=== PATIENT | female | born 1940 | race Caucasian/White ===

== ENCOUNTER 2017-04-21 14:38 | Outpatient (CLI) | payer MEDICARE, BC | END 2017-04-21 14:39 | disposition critical access hospital (66) | LOC: EMS 14:38 | PROVIDERS: ATTEND Surgery | DX: R41.82 Altered mental status, unspecified (principal); R11.2 Nausea with vomiting, unspecified; R19.7 Diarrhea, unspecified; R53.1 Weakness | CPT/HCPCS: A0425; A0427 ==

== ENCOUNTER 2017-04-21 15:13 | Inpatient (IN) | payer MEDICARE, BC ==
--- NOTE | 2017-04-21 15:37 | ED Physician Documentation ---
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 and now is largely bed bound with bed sore recent rx for cipro for UTI which she did not finish per reports she has been febrile altered with NV since ysteday, too weak to get up with assist today, slid out of bed s injury requiring fire dept for lift assist and EMS also noted her to be hypoxic Review of Systems Constitutional: reports: Fever, Fatigue Cardiac: denies: Chest pain / pressure Respiratory: reports: Dyspnea GI: reports: Nausea, Vomiting, Diarrhea : reports: Incontinent Skin: reports: Other (buttock break down) Neurologic: reports: Generalized weakness, Altered mental status Endocrine: denies: Easy bruising / bleeding Immunocompromised: denies: Immunocompromised PD PAST MEDICAL HISTORY - Past Medical History Cardiovascular: Hypertension Neuro: Peripheral neuropathy Endocrine/Autoimmune: Type 2 diabetes GI: None : Frequency HEENT: None Musculoskeletal: Osteoarthritis, Chronic back pain Derm: None - Past Surgical History Ortho: Hip replacement, Knee replacement /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 HEENT: Cataracts, Tonsil/Adenoidectomy - Present Medications Home Medications: Ambulatory Orders Medication Instructions Recorded Confirmed Acetaminophen 500 mg PO DAILY 02/13/16 04/21/17 Amitriptyline HCl 10 mg PO QPM PRN 02/13/16 04/21/17 Atenolol 25 mg PO DAILY 02/13/16 04/21/17 Epinephrine [Epipen 2-Omar] 0.3 mg INJ PRN PRN 02/13/16 04/21/17 Metformin HCl 1,000 mg PO QDBREAKFAST 02/13/16 04/21/17 amLODIPine [Norvasc] 5 mg PO DAILY 02/13/16 04/21/17 metFORMIN [Glucophage] 500 mg QPM 04/21/17 04/21/17 - Allergies Allergies/Adverse Reactions: Allergies Allergy/AdvReac Type Severity Reaction Status Date / Time SO Inhibitors Allergy Unknown Verified 04/21/17 15:53 cyclobenzaprine Allergy Unknown Verified 04/21/17 16:09 [From Flexeril] venom-honey bee Allergy Unknown Verified 04/21/17 15:53 - Social History Smoking Status: Former smoker PD ED PE NORMAL - Vitals Vital signs reviewed: Yes - General General: Alert and oriented X 3 (very groggy and slow to respond but accurate) - HEENT HEENT: Atraumatic - Neck Neck: No bony TTP - Cardiac Cardiac: RRR - Respiratory Respiratory: No respiratory distress, Other (shallow) - Abdomen Abdomen: Soft, Non tender - Derm Derm: Other (diffuse buttcok erythema and gluteal cleft early break down, incontinet of jo ann and urine and is in soaked soiled linens) - Extremities Extremities: Other (jessica symmedema) - Neuro Neuro: Alert and oriented X 3, No motor deficit Results - Vitals Vitals: Vital Signs - 24 hr 04/21/17 04/21/17 04/21/17 15:15 15:30 16:45 Temperature 37.6 C H 37.4 C Heart Rate 102 H 96 90 Respiratory 20 18 20 Rate Blood Pressure 156/60 H 141/50 H 138/88 H O2 Saturation 93 97 94 Oxygen O2 Source Room air - Labs Labs: Microbiology 04/21/17 15:15 Clostridium difficile (PCR) - Final Stool Laboratory Tests 04/21/17 04/21/17 04/21/17 15:15 16:01 16:01 WBC 13.8 H RBC 3.88 L Hgb 11.3 L Hct 34.6 L MCV 89.1 MCH 29.1 MCHC 32.7 RDW 12.8 Plt Count 179 MPV 9.3 Neut # 12.3 H Lymph # 0.7 L [place] # 0.8 Eos # 0.0 Baso # 0.1 Absolute Nucleated RBC 0.00 Nucleated RBC % 0.0 Sodium 136 Potassium 3.4 L Chloride 105 Carbon Dioxide 21 Anion Gap 10.0 BUN 14 Creatinine 1.0 Estimated GFR (MDRD) 54 L Glucose 194 H Glycated Hemoglobin Estim Average Glucose Lactic Acid Calcium 8.1 L Urine Color Urine Clarity Urine pH Ur Specific [place] Urine Protein Urine Glucose (UA) Urine Ketones Urine Occult Blood Urine Nitrite Urine Bilirubin Urine Urobilinogen Ur Leukocyte Esterase Urine RBC Urine WBC Ur Squamous Epith Cells Amorphous Sediment Urine Bacteria Ur Microscopic Review Urine Culture Comments Influenza A (Rapid) Negative Influenza B (Rapid) Negative Influenza Types A,B Ag - 04/21/17 04/21/17 04/21/17 16:01 16:01 16:25 WBC RBC Hgb Hct MCV MCH MCHC RDW Plt Count MPV Neut # Lymph # [place] # Eos # Baso # Absolute Nucleated RBC Nucleated RBC % Sodium Potassium Chloride Carbon Dioxide Anion Gap BUN Creatinine Estimated GFR (MDRD) Glucose Glycated Hemoglobin 7.3 H Estim Average Glucose 163 H Lactic Acid 1.3 Calcium Urine Color YELLOW Urine Clarity SL. CLOUDY Urine pH 6.0 Ur Specific [place] 1.025 Urine Protein 100 H Urine Glucose (UA) NEGATIVE Urine Ketones TRACE Urine Occult Blood MODERATE H Urine Nitrite POSITIVE H Urine Bilirubin NEGATIVE Urine Urobilinogen 0.2 (NORMAL) Ur Leukocyte Esterase MODERATE H Urine RBC 6-10 H Urine WBC >25 H Ur Squamous Epith Cells FEW Squamous Amorphous Sediment Few Urine Bacteria Many H Ur Microscopic Review INDICATED Urine Culture Comments INDICATED Influenza A (Rapid) Influenza B (Rapid) Influenza Types A,B Ag - Rads (name of study) CXR Radiology: See rad report (no acute) PD MEDICAL DECISION MAKING - ED course ED course: UTI with profound weakness and AMS too weak to even get up unassisted - will give IVF and antibiotics and reassess but may have to admit Departure - Departure Disposition: 66 [facility] DC/Xfer Clinical Impression: UTI (urinary tract infection) Qualifiers: Urinary tract infection type: site unspecified Hematuria presence: with hematuria Qualified Code(s): N39.0 - Urinary tract infection, site not specified Altered mental status Qualifiers: Altered mental status type: somnolence Qualified Code(s): R40.0 - Somnolence Bed sore Qualifiers: Pressure ulcer location: buttock Pressure ulcer stage: stage 1 Laterality: unspecified laterality Qualified Code(s): L89.301 - Pressure ulcer of unspecified buttock, stage 1 Incontinence of bowel Qualifiers: Fecal incontinence type: unspecified Qualified Code(s): R15.9 - Full incontinence of feces Incontinent of urine Qualifiers: Urinary Incontinence type: unspecified incontinence Qualified Code(s): R32 - Unspecified urinary incontinence Condition: Good Discharge Date/Time: 04/21/17 18:58
--- NOTE | 2017-04-21 16:09 | XRAY Preliminary Report ---
Exam: XR CHEST 1 VIEW X-RAY IMPRESSION: No acute cardiopulmonary disease seen. [facility] SITE ID: [id number]
--- NOTE | 2017-04-21 16:09 | XRAY Report ---
EXAM: CHEST RADIOGRAPHY EXAM DATE: 04/21/2017 03:58 PM. CLINICAL HISTORY: Fever weak altered mental status hypoxia. COMPARISON: None. TECHNIQUE: 1 view. FINDINGS: Lungs/Pleura: No focal opacities evident. No pleural effusion. No pneumothorax. Mediastinum: Within exam limitations, the cardiomediastinal contour is normal. IMPRESSION: No acute cardiopulmonary disease seen. [facility] Referring Provider Line: [phone] SITE ID: [id number]
[2017-04-21 16:15] LABS: BASOPHILS # (AUTO) 0.1 10^3/uL (0.0-0.1); BASOPHILS % (AUTO) 0.5 %; HGB - HEMOGLOBIN 11.3 g/dL (12.0-16.0); LYMPHOCYTES # (AUTO) 0.7 10^3/uL (1.5-3.5); LYMPHOCYTES % (AUTO) 5.2 %; MEAN CORPUSCULAR HEMOGLOBIN 29.1 pg (27.0-31.0); MEAN CORPUSCULAR HGB CONC 32.7 g/dL (32.0-36.0); MEAN CORPUSCULAR VOLUME 89.1 fL (81.0-99.0); MEAN PLATELET VOLUME 9.3 fL (7.9-10.8); MONOCYTES # (AUTO) 0.8 10^3/uL (0.0-1.0); MONOCYTES % (AUTO) 5.5 %; NEUTROPHILS # (AUTO) 12.3 10^3/uL (1.5-6.6); NEUTROPHILS % (AUTO) 88.8 %; PLT - PLATELET COUNT 179 10^3/uL (130-450); RED BLOOD COUNT 3.88 10^6/uL (4.20-5.40); RED CELL DISTRIBUTION WIDTH 12.8 % (12.0-15.0); WHITE BLOOD COUNT 13.8 x10^3/uL (4.8-10.8)
[2017-04-21 16:21] LABS: CALCIUM 8.1 mg/dL (8.5-10.3)
[2017-04-21 16:30] LABS: BILIRUBIN,URINE NEGATIVE (NEGATIVE); GLUCOSE, URINE (UA) NEGATIVE (NEGATIVE); KETONES,URINE (UA) TRACE mg/dL (NEGATIVE); LEUKOCYTE ESTERASE, URINE MODERATE (NEGATIVE); NITRITE,URINE POSITIVE (NEGATIVE); OCCULT BLOOD,URINE MODERATE (NEGATIVE); PROTEIN,URINE 100 mg/dL (NEGATIVE); UROBILINOGEN,URINE 0.2 (NORMAL) E.U./dL (NORMAL)
[2017-04-21 16:33] LABS: CLARITY,URINE SL. CLOUDY (CLEAR)
[2017-04-21] MEDS ORDERED: cefTRIAXone 1 GM in SODIUM CHLORIDE 0.9% MINIBAG 100 ML IV STA (16:35)
[2017-04-21 16:39] LABS: AMORPHOUS SEDIMENT,UR Few /LPF; BACTERIA,URINE Many /HPF (None Seen); SQUAMOUS EPITHELIAL CELL,UR FEW Squamous (<= Few)
[2017-04-21] MEDS ORDERED: ONDANSETRON 4 MG/2 ML VIAL IVP PRN (18:26)
--- NOTE | 2017-04-21 18:39 | HISTORY & PHYSICAL EXAMINATION ---
Chief Complaint - Chief Complaint Chief Complaint: fever, weakness History of Present Illness - Admitted From Admitted From:: ER - History Obtained From History obtained from: pt and her family - History of Present Illness HPI Comment/Other: A 77-year-old female with a past medical history significant for HTN, DM2, peripheral neuropathy, osteoarthritis, chronic back pain, present ER for evaluation of fever, nausea, vomiting and weakness. Pt report she had fever 102 degree at home on yesterday, and nausea, vomiting, loose stool and sometime diarrhea for two weeks. Pt report she usually can walk but recently she feel very weakness and can not walk more. Pt also report she had a ulcer at her back for at least couple months, and report she has been under nurse's wound care on [facility]. Pt denies chest pain, shortness of breathing, cough, headache, dysuria, hematuria, abdominal pain, GI bleeding, vision changing. Today in ER pt has elevated temperature to 37.6 C. UA reveals positive UTI. pt has elevated WBC to 13.8. Pt is admitted for further evaluation and treatment of UTI, weakness. 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 Pt report she did not have any child. Living arrangement: At home Living Situation: With spouse/s.o. Social History Notes: pt denies cigarette smoking, alcoholic and drug issues. - Substance History Use: Uses substance without health or social issues: NONE Abuse: Recurrent use of substance despite neg consequences: NONE Dependence: Experiences withdrawal or developed tolerances: NONE - POLST Patient has POLST: Yes POLST Status: DNR Meds/Allgy - Home Medications Home Medications: Ambulatory Orders Medication Instructions Recorded Confirmed Acetaminophen 500 mg PO DAILY 02/13/16 04/21/17 Amitriptyline HCl 5 mg PO QPM PRN 02/13/16 04/22/17 Atenolol 25 mg PO DAILY 02/13/16 04/22/17 Metformin HCl 1,000 mg PO QDBREAKFAST 02/13/16 04/21/17 metFORMIN [Glucophage] 1,000 mg PO QDBREAKFAST 04/21/17 04/22/17 Loratadine [Claritin] 10 mg PO DAILY PRN 04/22/17 04/22/17 metFORMIN [Glucophage] 500 mg PO QDDINNER 04/22/17 04/22/17 - Allergies Allergies/Adverse Reactions: Allergies Allergy/AdvReac Type Severity Reaction Status Date / Time SO Inhibitors Allergy Unknown Verified 04/21/17 15:53 cyclobenzaprine Allergy Unknown Verified 04/21/17 16:09 [From Flexeril] venom-honey bee Allergy Unknown Verified 04/21/17 15:53 Review of Systems - Constitutional Constitutional: reports: Fatigue, Fever, Weakness. denies: Chills, Malaise, Diaphoresis, Night sweats - Eyes Eyes: denies: Pain, Irritation, Amaurosis, Blurred vision, Spots in vision, Field loss, Vision loss, Dipolpia - Ears, Nose & Throat Ears, Nose & Throat: denies: Ear pain, Hearing loss, Hearing aids, Tinnitus, Vertigo, Nasal pain, Nasal discharge, Nosebleeds, Nasal congestion, Postnasal drainage, Sore throat, Hoarseness, Mouth lesions, Bleeding gums - Cardiovascular Cariovascular: denies: Irregular heart rate, Palpitations, Chest pain, Edema, Lightheadedness, Syncope, Exertional dyspnea, Decr. exercise tolerance - Respiratory Respiratory: denies: Cough, Sputum production, Wheezing, Snoring, Hemoptysis, Orthopnea, SOB at rest, SOB with exertion - Gastrointestinal Gastrointestinal: reports: Nausea, Vomiting. denies: Abdominal pain, Abdominal distention, Constipation, Change in bowel habits, Rectal bleeding, Black stools , Bloody stools, Rodolfo blood emesis, Coffee grounds emesis, Reflux/heartburn, Poor appetite - Genitourinary Genitourinary: denies: Dysuria, Frequency, Urgency, Hematuria, Incontinence, Flank pain - Musculoskeletal Musculoskeletal: denies: Muscle pain, Back pain, Muscle aches, Stiffness, Limited range of motion, Muscle weakness, Gout - Integumentary Integumentary: denies: Rash, Pruritis, Lesions, Dryness, Acne, Pigment changes - Neurological Neurological: reports: General weakness. denies: Focal weakness, Headache, Dizziness, Numbness, Pre-existing deficit, Abnormal gait, Seizures, Incoordination, Slurred speech - Psychiatric Psychiatric: denies: Depression, Anxiety, Suicidal, Delusions, Hallucinations, Homicidal - Endocrine Endocrine: denies: Polyuria, Polydypsia, Polyphagia, Intolerance to cold - Hematologic/Lymphatic Hematologic/Lymphatic: denies: Anemia, Bruising, Petechiae, Blood clots, Lymphadenopathy, Bleeding tendencies Exam - Vital Signs Reviewed Vital Signs: Yes Vital Signs: Vital Signs x48h Temp Pulse Resp BP Pulse Ox 04/21/17 16:45 37.4 C 90 20 138/88 H 94 04/21/17 15:30 96 18 141/50 H 97 04/21/17 15:15 37.6 C H 102 H 20 156/60 H 93 - Physical Exam General Appearance: positive: No acute distress, Alert. negative: Lethargic Eyes Bilateral: positive: Normal inspection, PERRL, EOMI, No lid inflammation, Conjunctivae nml ENT: positive: ENT inspection nml, Pharynx nml, No signs of dehydration. negative: Purulent nasal drainage, Pharyngeal erythema, Oral lesions Neck: positive: Nml inspection, Thyroid nml, No JVD, Trachea midline. negative : Thyromegaly, Lymphadenopathy (R), Lymphadenopathy (L), Stiff neck, Carotid bruit, Swelling/bruising, Tracheal deviation Respiratory: positive: Chest non-tender, No respiratory distress, Breath sounds nml. negative: Wheezes, Rales, Rhonchi Cardiovascular: positive: Regular rate & rhythm, No murmur, No gallop. negative : Irregularly irregular, Extrasystoles, Tachycardia, Bradycardia, Systolic murmur, Diastolic murmur Peripheral Pulses: positive: 2+ Abdomen: positive: Non-tender, No organomegaly, Nml bowel sounds, No distention. negative: Tenderness, Guarding, Rebound Back: positive: Nml inspection. negative: CVA tenderness (R), CVA tenderness (L ) Skin: positive: Color nml, No rash, Warm, Dry, Decubitus. negative: Cyanosis, Diaphoresis, Pallor, Skin rash Extremities: positive: Non-tender, Full ROM, Nml appearance. negative: Calf tenderness, Joint swelling, Jessie's sign/cords Neurologic/Psychiatric: positive: Oriented x3, Motor nml, Sensation nml, Mood/ affect nml. negative: Sensory loss, Facial droop, Slurred/abnml speech, Depressed mood/affect Conclusion/Plan - Problem List (1) UTI (urinary tract infection) Conclusion/Plan: UA reveals positive UTI IV of Zosyn IVF NS follow up UA culture Qualifiers: Urinary tract infection type: site unspecified Hematuria presence: with hematuria Qualified Code(s): N39.0 - Urinary tract infection, site not specified; R31.9 - Hematuria, unspecified; R31.9 - Hematuria, unspecified (2) SIRS (systemic inflammatory response syndrome) Conclusion/Plan: elevated Tem, and HR, and UTI indicate SIRS IVF NS tele and vital monitor closely antibiotics (3) Bed sore Conclusion/Plan: pt report the bed sore has been for couple of months, and under the wound care. wound consult, will follow up Turn side Q2H dressing change as wound consult instruction continue antibiotics Qualifiers: Pressure ulcer location: buttock Pressure ulcer stage: stage 1 Laterality : unspecified laterality Qualified Code(s): L89.301 - Pressure ulcer of unspecified buttock, stage 1 (4) DM2 (diabetes mellitus, type 2) Conclusion/Plan: will check A1C hold Metformin begin Slide scale, hypoglycemia, ACHS (5) HTN (hypertension) Conclusion/Plan: resume home BP meds add Clonidine as PRN vital monitor (6) Weakness generalized Conclusion/Plan: pt report she has been recently weakness, can not walk consult with PT/OT continue treatment of UTI lab and vital monitor (7) DVT prophylaxis Conclusion/Plan: SCD and Lovenox (8) Do not intubate, cardiopulmonary resuscitation (CPR)-only code status Conclusion/Plan: pt clearly state DNR for her code status - Lab Results Fish Bones: 04/22/17 05:20 04/22/17 05:20 Core Measures - Anticipated LOS I expect patient to be DC'd or transferred within 96 hours.: Yes
[2017-04-21 19:03] LABS: HB2 TOTAL 12.2 g/dL; HEMOGLOBIN A1C 0.68 g/dL; HEMOGLOBIN A1C % 7.3 % (4.6-6.2)
[2017-04-21] MEDS: SODIUM CHLORIDE 0.9% 1,000 ML IV SCH (19:48)
[2017-04-21] MEDS: SODIUM CHLORIDE FLUSH 0.9% 10 ML SYRINGE IVP SCH (19:49)
[2017-04-21] MEDS: PIPERACILLIN/TAZOBACTAM 3.375 GM in SODIUM CHLORIDE 0.9% MINIBAG 100 ML IV SCH (19:53)
[2017-04-21] MEDS: ACETAMINOPHEN 325 MG TABLET PO PRN (21:47)
[2017-04-21] MEDS ORDERED: MIN OIL/DIMETHICON/COCONUT OIL 92 GM TUBE TOP PRN (22:42)
[2017-04-21] MEDS ORDERED: ZINC OXIDE 20% OINT 28.35 GM TUBE TOP PRN (22:42)
[2017-04-21] MEDS: INSULIN ASPART 300 UNIT/3 ML PEN SUBQ SCH (22:50)
[2017-04-22] MEDS: PIPERACILLIN/TAZOBACTAM 3.375 GM in SODIUM CHLORIDE 0.9% MINIBAG 100 ML IV SCH ×4 (01:49→19:00)
[2017-04-22] MEDS: SODIUM CHLORIDE 0.9% 1,000 ML IV SCH ×2 (05:32→14:13)
[2017-04-22] MEDS: SODIUM CHLORIDE FLUSH 0.9% 10 ML SYRINGE IVP SCH ×3 (05:33→22:44)
[2017-04-22 05:40] LABS: BASOPHILS # (AUTO) 0.1 10^3/uL (0.0-0.1); BASOPHILS % (AUTO) 0.8 %; EOSINOPHILS % (AUTO) 0.1 %; HGB - HEMOGLOBIN 11.5 g/dL (12.0-16.0); LYMPHOCYTES % (AUTO) 15.4 %; MEAN CORPUSCULAR HEMOGLOBIN 29.3 pg (27.0-31.0); MEAN CORPUSCULAR HGB CONC 32.6 g/dL (32.0-36.0); MEAN CORPUSCULAR VOLUME 89.9 fL (81.0-99.0); MEAN PLATELET VOLUME 9.3 fL (7.9-10.8); MONOCYTES # (AUTO) 1.3 10^3/uL (0.0-1.0); MONOCYTES % (AUTO) 9.6 %; NEUTROPHILS # (AUTO) 9.7 10^3/uL (1.5-6.6); NEUTROPHILS % (AUTO) 74.1 %; PLT - PLATELET COUNT 156 10^3/uL (130-450); RED BLOOD COUNT 3.91 10^6/uL (4.20-5.40); RED CELL DISTRIBUTION WIDTH 12.7 % (12.0-15.0); WHITE BLOOD COUNT 13.1 x10^3/uL (4.8-10.8)
[2017-04-22 05:49] LABS: ALBUMIN/GLOBULIN RATIO 0.8 (1.0-2.2); BILIRUBIN,TOTAL 0.6 mg/dL (0.2-1.0); CREATININE 1.1 mg/dL (0.4-1.0); MAGNESIUM 1.9 mg/dL (1.7-2.8); TOTAL PROTEIN 6.7 g/dL (6.7-8.2)
[2017-04-22] MEDS: ENOXAPARIN 40 MG/0.4 ML SYRINGE SUBQ SCH (08:04)
[2017-04-22] MEDS: POLYETHYLENE GLYCOL 3350 17 GM PACKET PO SCH (08:04)
[2017-04-22] MEDS: FAMOTIDINE 20 MG TABLET PO SCH (08:04)
[2017-04-22] MEDS: ATENOLOL 25 MG TABLET PO SCH (08:04)
[2017-04-22] MEDS ORDERED: cloNIDine 0.1 MG TABLET PO PRN (08:05)
[2017-04-22] MEDS: INSULIN ASPART 300 UNIT/3 ML PEN SUBQ SCH ×4 (08:05→22:42)
[2017-04-22] MEDS ORDERED: amLODIPine 5 MG TABLET PO SCH (09:00)
[2017-04-22] MEDS: ACETAMINOPHEN 325 MG TABLET PO PRN ×2 (10:58→22:35)
--- NOTE | 2017-04-22 15:48 | PROVIDER PROGRESS NOTE ---
Subjective - Prog Note Date Prog Note Date: 04/22/17 - Subjective Pt reports feeling: Improved Subjective: pt state she feels much better. No fever, chill, cough. No chest pain, No shortness of breath. Pt just now report she had a slow sitting down to the floor when she tried to stand from the edge of the bed. pt report she did not have any injury to this accident, "actually it was not a fall." Current Medications - Current Medications Current Medications: Active Medications Acetaminophen (Tylenol) 650 mg PO Q4HR PRN PRN Reason: Pain 1 to 4 Last Admin: 04/22/17 10:58 Dose: 650 mg Atenolol (Tenormin) 25 mg PO DAILY [facility] Last Admin: 04/22/17 08:04 Dose: 25 mg Clonidine HCl (Catapres) 0.1 mg PO BID PRN PRN Reason: Hypertensive Emergency Enoxaparin Sodium (Lovenox) 40 mg SUBQ DAILY [facility] Last Admin: 04/22/17 08:04 Dose: 40 mg Famotidine (Pepcid) 20 mg PO DAILY [facility] Last Admin: 04/22/17 08:04 Dose: 20 mg Sodium Chloride (Normal Saline 0.9%) 1,000 mls @ 125 mls/hr IV .Q8H [facility] Last Admin: 04/22/17 14:13 Dose: 125 mls/hr Piperacillin Sod/Tazobactam (Sod 3.375 gm/ Sodium Chloride) 100 mls @ 200 mls/ hr IV Q6H [facility] Last Infusion: 04/22/17 14:10 Dose: Infused Insulin Aspart (Novolog) 2 - 10 unit SUBQ 0800,1200,1700,2100 [facility] PRN Reason: Protocol Last Admin: 04/22/17 11:56 Dose: 4 unit Mineral Oil (Cavilon) 1 applic TOP PRN PRN PRN Reason: Skin Care Multi-Ingredient Ointment (Zinc Oxide) 1 applic TOP PRN PRN PRN Reason: Skin Care Ondansetron HCl (Zofran Inj) 4 mg IVP Q6HR PRN PRN Reason: Nausea / Vomiting Polyethylene Glycol (Miralax) 17 gm PO DAILY [facility] Last Admin: 04/22/17 08:04 Dose: Not Given Sodium Chloride (Normal Saline Flush 0.9%) 10 ml IVP PRN PRN PRN Reason: NEEDED PER PROVIDER ORDERS Sodium Chloride (Normal Saline Flush 0.9%) 10 ml IVP Q8HR [facility] Last Admin: 04/22/17 13:57 Dose: Not Given Acetaminophen 500 mg PO DAILY 02/13/16 Amitriptyline HCl 5 mg PO QPM PRN 02/13/16 Atenolol 25 mg PO DAILY 02/13/16 Metformin HCl 1,000 mg PO QDBREAKFAST 02/13/16 metFORMIN [Glucophage] 1,000 mg PO QDBREAKFAST 04/21/17 Loratadine [Claritin] 10 mg PO DAILY PRN 04/22/17 metFORMIN [Glucophage] 500 mg PO QDDINNER 04/22/17 Objective - Vital Signs/Intake & Output Vital Signs: Vital Signs x48h Temp Pulse Pulse Resp BP Pulse Ox 04/22/17 12:12 37.1 C 73 20 129/49 L 92 04/22/17 10:30 76 Intake & Output: Intake & Output 04/19/17 04/20/17 04/21/17 04/22/17 23:59 23:59 23:59 23:59 Intake Total 350 2850 Output Total 200 Balance 350 2650 - Objective General Appearance: positive: No acute distress, Alert. negative: Lethargic Eyes Bilateral: positive: Normal inspection, PERRL, EOMI, No lid inflammation, Conjunctivae nml ENT: positive: ENT inspection nml, Pharynx nml, No signs of dehydration. negative: Purulent nasal drainage, Pharyngeal erythema, Oral lesions, Dry mucous membranes Neck: positive: Nml inspection, Thyroid nml, No JVD, Trachea midline. negative : Thyromegaly, Lymphadenopathy (R), Lymphadenopathy (L), Stiff neck, Carotid bruit, Swelling/bruising, Tracheal deviation Respiratory: positive: Chest non-tender, No respiratory distress, Breath sounds nml. negative: Wheezes, Rales, Rhonchi Cardiovascular: positive: Regular rate & rhythm, No murmur, No gallop. negative : Irregularly irregular, Extrasystoles, Tachycardia, Bradycardia, Systolic murmur, Diastolic murmur Peripheral Pulses: 2+ Radial (R), 2+ Radial (L), 2+ Dorsalis pedis (R), 2+ Dorsalis pedis (L) Abdomen: positive: Non-tender, No organomegaly, Nml bowel sounds, No distention. negative: Tenderness, Guarding, Rebound Back: positive: Nml inspection. negative: CVA tenderness (R), CVA tenderness (L ) Skin: positive: Color nml, No rash, Warm, Dry, Decubitus, Other (per wound nurse report pt had stage 1 pressure ulcer. initiate pressure ulcer protocol). negative: Cyanosis, Diaphoresis, Pallor, Skin rash Extremities: positive: Non-tender, Full ROM, Nml appearance. negative: Calf tenderness, Joint swelling, Jessie's sign/cords Neurologic/Psychiatric: positive: Oriented x3, Motor nml, Sensation nml. negative: Sensory loss, Facial droop, Slurred/abnml speech, Depressed mood/ affect - Lab Results Fish Bones: 04/22/17 05:20 04/22/17 05:20 Other Labs: Lab Results x24hrs 04/22/17 04/22/17 04/22/17 Range/Units 10:55 07:17 05:20 WBC (4.8-10.8) x10^3/uL RBC (4.20-5.40) 10^6/uL Hgb (12.0-16.0) g/dL Hct (37.0-47.0) % MCV (81.0-99.0) fL MCH (27.0-31.0) pg MCHC (32.0-36.0) g/dL RDW (12.0-15.0) % Plt Count (130-450) 10^3/uL MPV (7.9-10.8) fL Neut # (1.5-6.6) 10^3/uL Lymph # (1.5-3.5) 10^3/uL Clarke # (0.0-1.0) 10^3/uL Eos # (0.0-0.7) 10^3/uL Baso # (0.0-0.1) 10^3/uL Absolute Nucleated RBC x10^3/uL Nucleated RBC % /100WBC Sodium 136 (135-145) mmol/L Potassium 3.8 (3.5-5.0) mmol/L Chloride 106 (101-111) mmol/L Carbon Dioxide 21 (21-32) mmol/L Anion Gap 9.0 (6-13) BUN 13 (6-20) mg/dL Creatinine 1.1 H (0.4-1.0) mg/dL Estimated GFR (MDRD) 48 L (>89) Glucose 191 H (70-100) mg/dL POC Whole Bld Glucose 188 H 228 H (70 - 100) mg/dL Calcium 8.0 L (8.5-10.3) mg/dL Magnesium 1.9 (1.7-2.8) mg/dL Total Bilirubin 0.6 (0.2-1.0) mg/dL AST 67 H (10-42) IU/L ALT 34 (10-60) IU/L Alkaline Phosphatase 62 (42-121) IU/L Total Protein 6.7 (6.7-8.2) g/dL Albumin 3.0 L (3.2-5.5) g/dL Globulin 3.7 (2.1-4.2) g/dL Albumin/Globulin Ratio 0.8 L (1.0-2.2) 04/22/17 04/21/17 04/21/17 Range/Units 05:20 21:31 19:35 WBC 13.1 H (4.8-10.8) x10^3/uL RBC 3.91 L (4.20-5.40) 10^6/uL Hgb 11.5 L (12.0-16.0) g/dL Hct 35.2 L (37.0-47.0) % MCV 89.9 (81.0-99.0) fL MCH 29.3 (27.0-31.0) pg MCHC 32.6 (32.0-36.0) g/dL RDW 12.7 (12.0-15.0) % Plt Count 156 (130-450) 10^3/uL MPV 9.3 (7.9-10.8) fL Neut # 9.7 H (1.5-6.6) 10^3/uL Lymph # 2.0 (1.5-3.5) 10^3/uL Clarke # 1.3 H (0.0-1.0) 10^3/uL Eos # 0.0 (0.0-0.7) 10^3/uL Baso # 0.1 (0.0-0.1) 10^3/uL Absolute Nucleated RBC 0.01 x10^3/uL Nucleated RBC % 0.1 /100WBC Sodium (135-145) mmol/L Potassium (3.5-5.0) mmol/L Chloride (101-111) mmol/L Carbon Dioxide (21-32) mmol/L Anion Gap (6-13) BUN (6-20) mg/dL Creatinine (0.4-1.0) mg/dL Estimated GFR (MDRD) (>89) Glucose (70-100) mg/dL POC Whole Bld Glucose 195 H 173 H (70 - 100) mg/dL Calcium (8.5-10.3) mg/dL Magnesium (1.7-2.8) mg/dL Total Bilirubin (0.2-1.0) mg/dL AST (10-42) IU/L ALT (10-60) IU/L Alkaline Phosphatase (42-121) IU/L Total Protein (6.7-8.2) g/dL Albumin (3.2-5.5) g/dL Globulin (2.1-4.2) g/dL Albumin/Globulin Ratio (1.0-2.2) Assessment/Plan - Problem List (1) UTI (urinary tract infection) Impression: Conclusion/Plan: pt report she feel much better continue antibiotics continue IVF follow up UA culture UA reveals positive UTI IV of Zosyn IVF NS follow up UA culture (2) SIRS (systemic inflammatory response syndrome) Conclusion/Plan: temperature is normal HR is down to NWL continue IVF, and antibiotics tele and vital monitor check ESR and CRP elevated Tem, and HR, and UTI indicate SIRS IVF NS tele and vital monitor closely antibiotics (3) Bed sore Conclusion/Plan: wound nurse review pt, state it is stage 1 pressure ulcer treated with barrier cream and pressure relief Q2H return to side pt report the bed sore has been for couple of months, and under the wound care. wound consult, will follow up Turn side Q2H dressing change as wound consult instruction continue antibiotics (4) DM2 (diabetes mellitus, type 2) Conclusion/Plan: increase to moderate insulin dosage in slide scale based pt has mild to moderate elevated glucose will check A1C hold Metformin begin Slide scale, hypoglycemia, ACHS (5) HTN (hypertension) Conclusion/Plan: normal, stable continue vital monitor resume home BP meds add Clonidine as PRN vital monitor (6) Weakness generalized Conclusion/Plan: continue PT/OT treatment pt report she has been recently weakness, can not walk consult with PT/OT continue treatment of UTI lab and vital monitor (7) Obesity consult to pt possibility to loss of weight, and benefit of loss weight, and the risk of rapid loss weight Qualifiers: Urinary tract infection type: site unspecified Hematuria presence: with hematuria Qualified Code(s): N39.0 - Urinary tract infection, site not specified; R31.9 - Hematuria, unspecified; R31.9 - Hematuria, unspecified (3) Bed sore Qualifiers: Pressure ulcer location: buttock Pressure ulcer stage: stage 1 Laterality : unspecified laterality Qualified Code(s): L89.301 - Pressure ulcer of unspecified buttock, stage 1
[2017-04-22] MEDS ORDERED: IPRATROPIUM/ALBUTEROL 3 ML NEB INH SCH (21:35)
--- NOTE | 2017-04-22 22:32 | XRAY Report ---
EXAM: CHEST RADIOGRAPHY EXAM DATE: 04/22/2017 10:13 PM. CLINICAL HISTORY: Hypoxia and shortness of breath. COMPARISON: 04/21/2017. TECHNIQUE: 1 view. FINDINGS: Lungs/Pleura: Increased haziness and interstitial prominence. No focal opacities evident. No pleural effusion. No pneumothorax. Mediastinum: Large heart. Other: No bony abnormalities noted. IMPRESSION: Large heart with increased interstitial prominence concerning for interstitial pulmonary edema. [facility] Referring Provider Line: [phone] SITE ID: [id number]
[2017-04-22] MEDS: IBUPROFEN 600 MG TABLET PO SCH (22:34)
[2017-04-22] MEDS ORDERED: FUROSEMIDE 40 MG/4 ML VIAL IVP SCH (22:48)
[2017-04-22] MEDS: SODIUM CHLORIDE FLUSH 0.9% 10 ML SYRINGE IVP PRN (22:55)
[2017-04-23] MEDS: PIPERACILLIN/TAZOBACTAM 3.375 GM in SODIUM CHLORIDE 0.9% MINIBAG 100 ML IV SCH ×4 (01:42→21:11)
[2017-04-23 06:02] LABS: BASOPHILS % (AUTO) 0.3 %; EOSINOPHILS % (AUTO) 0.2 %; HGB - HEMOGLOBIN 11.1 g/dL (12.0-16.0); LYMPHOCYTES # (AUTO) 1.7 10^3/uL (1.5-3.5); LYMPHOCYTES % (AUTO) 14.5 %; MEAN CORPUSCULAR HEMOGLOBIN 28.9 pg (27.0-31.0); MEAN CORPUSCULAR HGB CONC 32.6 g/dL (32.0-36.0); MEAN CORPUSCULAR VOLUME 88.6 fL (81.0-99.0); MEAN PLATELET VOLUME 9.4 fL (7.9-10.8); MONOCYTES # (AUTO) 0.9 10^3/uL (0.0-1.0); MONOCYTES % (AUTO) 7.7 %; NEUTROPHILS # (AUTO) 9.1 10^3/uL (1.5-6.6); NEUTROPHILS % (AUTO) 77.3 %; PLT - PLATELET COUNT 159 10^3/uL (130-450); RED BLOOD COUNT 3.85 10^6/uL (4.20-5.40); RED CELL DISTRIBUTION WIDTH 13.1 % (12.0-15.0); WHITE BLOOD COUNT 11.7 x10^3/uL (4.8-10.8)
[2017-04-23 06:32] LABS: ALBUMIN 2.7 g/dL (3.2-5.5); ALBUMIN/GLOBULIN RATIO 0.8 (1.0-2.2); BILIRUBIN,TOTAL 0.7 mg/dL (0.2-1.0); CREATININE 1.2 mg/dL (0.4-1.0); CRP - C-REACTIVE PROTEIN 25.6 mg/dL (0-1.0); TOTAL PROTEIN 6.2 g/dL (6.7-8.2)
[2017-04-23] MEDS: IBUPROFEN 600 MG TABLET PO SCH ×3 (06:42→21:11)
[2017-04-23] MEDS: SODIUM CHLORIDE FLUSH 0.9% 10 ML SYRINGE IVP SCH ×3 (06:49→21:12)
[2017-04-23] MEDS ORDERED: POTASSIUM CHLORIDE 20 MEQ TABLET PO ONE (07:36)
[2017-04-23] MEDS: FAMOTIDINE 20 MG TABLET PO SCH (08:35)
[2017-04-23] MEDS: INSULIN ASPART 300 UNIT/3 ML PEN SUBQ SCH ×4 (08:35→21:40)
[2017-04-23] MEDS: ENOXAPARIN 40 MG/0.4 ML SYRINGE SUBQ SCH (08:35)
[2017-04-23] MEDS: POLYETHYLENE GLYCOL 3350 17 GM PACKET PO SCH (08:35)
[2017-04-23] MEDS: ATENOLOL 25 MG TABLET PO SCH (08:35)
--- NOTE | 2017-04-23 13:09 | PROVIDER PROGRESS NOTE ---
Subjective - Prog Note Date Prog Note Date: 04/23/17 - Subjective Pt reports feeling: Improved Subjective: pt report she feel much better for breathing, SO2 96% on room air. Current Medications - Current Medications Current Medications: Active Medications Acetaminophen (Tylenol) 650 mg PO Q4HR PRN PRN Reason: Pain 1 to 4 Last Admin: 04/22/17 22:35 Dose: 650 mg Atenolol (Tenormin) 25 mg PO DAILY [facility] Last Admin: 04/23/17 08:35 Dose: 25 mg Clonidine HCl (Catapres) 0.1 mg PO BID PRN PRN Reason: Hypertensive Emergency Enoxaparin Sodium (Lovenox) 40 mg SUBQ DAILY [facility] Last Admin: 04/23/17 08:35 Dose: 40 mg Famotidine (Pepcid) 20 mg PO DAILY [facility] Last Admin: 04/23/17 08:35 Dose: 20 mg Furosemide (Lasix) 40 mg PO DAILY [facility] Piperacillin Sod/Tazobactam (Sod 3.375 gm/ Sodium Chloride) 100 mls @ 200 mls/ hr IV Q6H [facility] Last Infusion: 04/23/17 09:46 Dose: Infused Ibuprofen (Motrin) 600 mg PO Q8HR [facility] Last Admin: 04/23/17 06:42 Dose: 600 mg Insulin Aspart (Novolog) 2 - 10 unit SUBQ 0800,1200,1700,2100 [facility] PRN Reason: Protocol Last Admin: 04/23/17 12:11 Dose: 4 unit Mineral Oil (Cavilon) 1 applic TOP PRN PRN PRN Reason: Skin Care Multi-Ingredient Ointment (Zinc Oxide) 1 applic TOP PRN PRN PRN Reason: Skin Care Ondansetron HCl (Zofran Inj) 4 mg IVP Q6HR PRN PRN Reason: Nausea / Vomiting Polyethylene Glycol (Miralax) 17 gm PO DAILY [facility] Last Admin: 04/23/17 08:35 Dose: 17 gm Sodium Chloride (Normal Saline Flush 0.9%) 10 ml IVP PRN PRN PRN Reason: NEEDED PER PROVIDER ORDERS Last Admin: 04/22/17 22:55 Dose: 20 ml Sodium Chloride (Normal Saline Flush 0.9%) 10 ml IVP Q8HR [facility] Last Admin: 04/23/17 06:49 Dose: Not Given Acetaminophen 500 mg PO DAILY 02/13/16 Amitriptyline HCl 5 mg PO QPM PRN 02/13/16 Atenolol 25 mg PO DAILY 02/13/16 Metformin HCl 1,000 mg PO QDBREAKFAST 02/13/16 metFORMIN [Glucophage] 1,000 mg PO QDBREAKFAST 04/21/17 Loratadine [Claritin] 10 mg PO DAILY PRN 04/22/17 metFORMIN [Glucophage] 500 mg PO QDDINNER 04/22/17 Objective - Vital Signs/Intake & Output Reviewed Vital Signs: Yes Vital Signs: Vital Signs x48h Temp Pulse Resp BP Pulse Ox 04/23/17 07:25 36.6 C 74 16 148/54 H 98 Intake & Output: Intake & Output 04/20/17 04/21/17 04/22/17 04/23/17 23:59 23:59 23:59 23:59 Intake Total 350 4070.000 300 Output Total 700 1000 Balance 350 3370.000 -700 - Objective General Appearance: positive: No acute distress, Alert. negative: Lethargic Eyes Bilateral: positive: Normal inspection, PERRL, No lid inflammation, Conjunctivae nml ENT: positive: ENT inspection nml, Pharynx nml, No signs of dehydration. negative: Purulent nasal drainage, Pharyngeal erythema, Oral lesions, Dry mucous membranes Neck: positive: Nml inspection, Thyroid nml, No JVD, Trachea midline. negative : Thyromegaly, Lymphadenopathy (R), Lymphadenopathy (L), Stiff neck, Carotid bruit, Swelling/bruising, Tracheal deviation Respiratory: positive: Chest non-tender, No respiratory distress. negative: Wheezes, Rales, Rhonchi Cardiovascular: positive: Regular rate & rhythm, No murmur, No gallop. negative : Irregularly irregular, Extrasystoles, Tachycardia, Bradycardia, Systolic murmur, Diastolic murmur Peripheral Pulses: 2+ Radial (R), 2+ Radial (L), 2+ Dorsalis pedis (R), 2+ Dorsalis pedis (L) Abdomen: positive: Non-tender, No organomegaly, Nml bowel sounds. negative: Tenderness, Guarding, Rebound Back: positive: Nml inspection. negative: CVA tenderness (R), CVA tenderness (L ) Skin: positive: Color nml, No rash, Warm, Dry. negative: Cyanosis, Diaphoresis , Pallor Extremities: positive: Non-tender, Full ROM, Nml appearance. negative: Calf tenderness, Joint swelling, Jessie's sign/cords Neurologic/Psychiatric: positive: Oriented x3, Sensation nml, Mood/affect nml. negative: Sensory loss, Facial droop, Slurred/abnml speech, Depressed mood/ affect - Lab Results Fish Bones: 04/23/17 05:22 04/23/17 05:22 Other Labs: Lab Results x24hrs 04/23/17 04/23/17 04/23/17 Range/Units 11:07 07:23 05:22 WBC (4.8-10.8) x10^3/uL RBC (4.20-5.40) 10^6/uL Hgb (12.0-16.0) g/dL Hct (37.0-47.0) % MCV (81.0-99.0) fL MCH (27.0-31.0) pg MCHC (32.0-36.0) g/dL RDW (12.0-15.0) % Plt Count (130-450) 10^3/uL MPV (7.9-10.8) fL Neut # (1.5-6.6) 10^3/uL Lymph # (1.5-3.5) 10^3/uL [place] # (0.0-1.0) 10^3/uL Eos # (0.0-0.7) 10^3/uL Baso # (0.0-0.1) 10^3/uL Absolute Nucleated RBC x10^3/uL Nucleated RBC % /100WBC ESR 87 H (0-30) mm/Hr Sodium (135-145) mmol/L Potassium (3.5-5.0) mmol/L Chloride (101-111) mmol/L Carbon Dioxide (21-32) mmol/L Anion Gap (6-13) BUN (6-20) mg/dL Creatinine (0.4-1.0) mg/dL Estimated GFR (MDRD) (>89) Glucose (70-100) mg/dL POC Whole Bld Glucose 213 H 187 H (70 - 100) mg/dL Calcium (8.5-10.3) mg/dL Total Bilirubin (0.2-1.0) mg/dL AST (10-42) IU/L ALT (10-60) IU/L Alkaline Phosphatase (42-121) IU/L Troponin I (<0.49) ng/mL C-Reactive Protein (0-1.0) mg/dL B-Natriuretic Peptide (5-100) pg/mL Total Protein (6.7-8.2) g/dL Albumin (3.2-5.5) g/dL Globulin (2.1-4.2) g/dL Albumin/Globulin Ratio (1.0-2.2) 04/23/17 04/23/17 04/23/17 Range/Units 05:22 05:22 04:37 WBC 11.7 H (4.8-10.8) x10^3/uL RBC 3.85 L (4.20-5.40) 10^6/uL Hgb 11.1 L (12.0-16.0) g/dL Hct 34.1 L (37.0-47.0) % MCV 88.6 (81.0-99.0) fL MCH 28.9 (27.0-31.0) pg MCHC 32.6 (32.0-36.0) g/dL RDW 13.1 (12.0-15.0) % Plt Count 159 (130-450) 10^3/uL MPV 9.4 (7.9-10.8) fL Neut # 9.1 H (1.5-6.6) 10^3/uL Lymph # 1.7 (1.5-3.5) 10^3/uL [place] # 0.9 (0.0-1.0) 10^3/uL Eos # 0.0 (0.0-0.7) 10^3/uL Baso # 0.0 (0.0-0.1) 10^3/uL Absolute Nucleated RBC 0.00 x10^3/uL Nucleated RBC % 0.0 /100WBC ESR (0-30) mm/Hr Sodium 140 (135-145) mmol/L Potassium 3.2 L (3.5-5.0) mmol/L Chloride 105 (101-111) mmol/L Carbon Dioxide 23 (21-32) mmol/L Anion Gap 12.0 (6-13) BUN 13 (6-20) mg/dL Creatinine 1.2 H (0.4-1.0) mg/dL Estimated GFR (MDRD) 43 L (>89) Glucose 173 H (70-100) mg/dL POC Whole Bld Glucose 162 H (70 - 100) mg/dL Calcium 8.0 L (8.5-10.3) mg/dL Total Bilirubin 0.7 (0.2-1.0) mg/dL AST 43 H (10-42) IU/L ALT 34 (10-60) IU/L Alkaline Phosphatase 65 (42-121) IU/L Troponin I (<0.49) ng/mL C-Reactive Protein 25.6 H (0-1.0) mg/dL B-Natriuretic Peptide (5-100) pg/mL Total Protein 6.2 L (6.7-8.2) g/dL Albumin 2.7 L (3.2-5.5) g/dL Globulin 3.5 (2.1-4.2) g/dL Albumin/Globulin Ratio 0.8 L (1.0-2.2) 04/22/17 04/22/17 04/22/17 Range/Units 21:45 21:45 20:53 WBC (4.8-10.8) x10^3/uL RBC (4.20-5.40) 10^6/uL Hgb (12.0-16.0) g/dL Hct (37.0-47.0) % MCV (81.0-99.0) fL MCH (27.0-31.0) pg MCHC (32.0-36.0) g/dL RDW (12.0-15.0) % Plt Count (130-450) 10^3/uL MPV (7.9-10.8) fL Neut # (1.5-6.6) 10^3/uL Lymph # (1.5-3.5) 10^3/uL [place] # (0.0-1.0) 10^3/uL Eos # (0.0-0.7) 10^3/uL Baso # (0.0-0.1) 10^3/uL Absolute Nucleated RBC x10^3/uL Nucleated RBC % /100WBC ESR (0-30) mm/Hr Sodium (135-145) mmol/L Potassium (3.5-5.0) mmol/L Chloride (101-111) mmol/L Carbon Dioxide (21-32) mmol/L Anion Gap (6-13) BUN (6-20) mg/dL Creatinine (0.4-1.0) mg/dL Estimated GFR (MDRD) (>89) Glucose (70-100) mg/dL POC Whole Bld Glucose 163 H (70 - 100) mg/dL Calcium (8.5-10.3) mg/dL Total Bilirubin (0.2-1.0) mg/dL AST (10-42) IU/L ALT (10-60) IU/L Alkaline Phosphatase (42-121) IU/L Troponin I 0.04 (<0.49) ng/mL C-Reactive Protein (0-1.0) mg/dL B-Natriuretic Peptide 423 H (5-100) pg/mL Total Protein (6.7-8.2) g/dL Albumin (3.2-5.5) g/dL Globulin (2.1-4.2) g/dL Albumin/Globulin Ratio (1.0-2.2) 04/22/17 Range/Units 16:51 WBC (4.8-10.8) x10^3/uL RBC (4.20-5.40) 10^6/uL Hgb (12.0-16.0) g/dL Hct (37.0-47.0) % MCV (81.0-99.0) fL MCH (27.0-31.0) pg MCHC (32.0-36.0) g/dL RDW (12.0-15.0) % Plt Count (130-450) 10^3/uL MPV (7.9-10.8) fL Neut # (1.5-6.6) 10^3/uL Lymph # (1.5-3.5) 10^3/uL [place] # (0.0-1.0) 10^3/uL Eos # (0.0-0.7) 10^3/uL Baso # (0.0-0.1) 10^3/uL Absolute Nucleated RBC x10^3/uL Nucleated RBC % /100WBC ESR (0-30) mm/Hr Sodium (135-145) mmol/L Potassium (3.5-5.0) mmol/L Chloride (101-111) mmol/L Carbon Dioxide (21-32) mmol/L Anion Gap (6-13) BUN (6-20) mg/dL Creatinine (0.4-1.0) mg/dL Estimated GFR (MDRD) (>89) Glucose (70-100) mg/dL POC Whole Bld Glucose 183 H (70 - 100) mg/dL Calcium (8.5-10.3) mg/dL Total Bilirubin (0.2-1.0) mg/dL AST (10-42) IU/L ALT (10-60) IU/L Alkaline Phosphatase (42-121) IU/L Troponin I (<0.49) ng/mL C-Reactive Protein (0-1.0) mg/dL B-Natriuretic Peptide (5-100) pg/mL Total Protein (6.7-8.2) g/dL Albumin (3.2-5.5) g/dL Globulin (2.1-4.2) g/dL Albumin/Globulin Ratio (1.0-2.2) Assessment/Plan - Problem List (1) UTI (urinary tract infection) Impression: (1) UTI (urinary tract infection) Conclusion/Plan: continue antibiotics WBC decrease, improved follow UA culture UA reveals positive UTI IV of Zosyn IVF NS follow up UA culture (2) SIRS (systemic inflammatory response syndrome) Conclusion/Plan: no fever, chill, WBC is down continue antibiotics stop IVF elevated Tem, and HR, and UTI indicate SIRS IVF NS tele and vital monitor closely antibiotics (3) Bed sore Conclusion/Plan: continue cream and dressing change pt report the bed sore has been for couple of months, and under the wound care. wound consult, will follow up Turn side Q2H dressing change as wound consult instruction continue antibiotics (4) DM2 (diabetes mellitus, type 2) Conclusion/Plan: increase insulin slide scale will check A1C hold Metformin begin Slide scale, hypoglycemia, ACHS (5) HTN (hypertension) Conclusion/Plan: stable resume home BP meds add Clonidine as PRN vital monitor (6) Weakness generalized Conclusion/Plan: improved, continue PT/OT treatment pt report she has been recently weakness, can not walk consult with PT/OT continue treatment of UTI lab and vital monitor (7) Shortness of breath pt has some difficult to breath last night CXR reveals cardiamegaly, and pulmonary edema elevated BNP ECHO reveals mild impaired EF to 45-50% plan: add Lasix stop IVF replacement of potassium daily lab and vital monitor Qualifiers: Urinary tract infection type: site unspecified Hematuria presence: with hematuria Qualified Code(s): N39.0 - Urinary tract infection, site not specified; R31.9 - Hematuria, unspecified; R31.9 - Hematuria, unspecified (3) Bed sore Qualifiers: Pressure ulcer location: buttock Pressure ulcer stage: stage 1 Laterality : unspecified laterality Qualified Code(s): L89.301 - Pressure ulcer of unspecified buttock, stage 1
[2017-04-23] MEDS: FUROSEMIDE 40 MG TABLET PO SCH (13:36)
[2017-04-24] MEDS: PIPERACILLIN/TAZOBACTAM 3.375 GM in SODIUM CHLORIDE 0.9% MINIBAG 100 ML IV SCH (02:12)
[2017-04-24 06:12] LABS: BASOPHILS # (AUTO) 0.1 10^3/uL (0.0-0.1); BASOPHILS % (AUTO) 0.6 %; EOSINOPHILS # (AUTO) 0.2 10^3/uL (0.0-0.7); EOSINOPHILS % (AUTO) 1.4 %; LYMPHOCYTES # (AUTO) 1.9 10^3/uL (1.5-3.5); LYMPHOCYTES % (AUTO) 16.1 %; MEAN CORPUSCULAR HEMOGLOBIN 29.5 pg (27.0-31.0); MEAN CORPUSCULAR HGB CONC 33.2 g/dL (32.0-36.0); MEAN CORPUSCULAR VOLUME 88.8 fL (81.0-99.0); MEAN PLATELET VOLUME 9.6 fL (7.9-10.8); MONOCYTES # (AUTO) 1.2 10^3/uL (0.0-1.0); MONOCYTES % (AUTO) 9.8 %; NEUTROPHILS # (AUTO) 8.6 10^3/uL (1.5-6.6); NEUTROPHILS % (AUTO) 72.1 %; PLT - PLATELET COUNT 173 10^3/uL (130-450); RED BLOOD COUNT 3.74 10^6/uL (4.20-5.40); RED CELL DISTRIBUTION WIDTH 12.9 % (12.0-15.0); WHITE BLOOD COUNT 11.9 x10^3/uL (4.8-10.8)
[2017-04-24 06:27] LABS: ALBUMIN 2.7 g/dL (3.2-5.5); ALBUMIN/GLOBULIN RATIO 0.7 (1.0-2.2); BILIRUBIN,TOTAL 0.9 mg/dL (0.2-1.0); CALCIUM 8.1 mg/dL (8.5-10.3); CREATININE 1.1 mg/dL (0.4-1.0); TOTAL PROTEIN 6.5 g/dL (6.7-8.2)
[2017-04-24] MEDS: IBUPROFEN 600 MG TABLET PO SCH ×2 (06:48→14:40)
[2017-04-24] MEDS: SODIUM CHLORIDE FLUSH 0.9% 10 ML SYRINGE IVP SCH ×2 (06:48→14:41)
[2017-04-24] MEDS: SODIUM CHLORIDE FLUSH 0.9% 10 ML SYRINGE IVP PRN (07:54)
[2017-04-24] MEDS ORDERED: POTASSIUM CHLOR 10 MEQ/100 ML 10 MEQ/100 ML BAG IV SCH ×3 (08:00→10:00)
[2017-04-24] MEDS ORDERED: DOCUSATE SODIUM 250 MG CAPSULE PO SCH (08:00)
[2017-04-24] MEDS ORDERED: POTASSIUM CHLORIDE 20 MEQ TABLET PO SCH (08:00)
[2017-04-24] MEDS ORDERED: SENNA 8.6 MG TABLET PO SCH (08:00)
[2017-04-24] MEDS: POLYETHYLENE GLYCOL 3350 17 GM PACKET PO SCH (08:04)
[2017-04-24] MEDS: INSULIN ASPART 300 UNIT/3 ML PEN SUBQ SCH ×2 (08:04→11:58)
[2017-04-24] MEDS: NITROFURANTOIN MACRO 100 MG CAPSULE PO SCH ×2 (08:18→08:26)
[2017-04-24] MEDS ORDERED: PIPERACILLIN/TAZOBACTAM 3.375 GM in SODIUM CHLORIDE 0.9% MINIBAG 100 ML IV SCH ×4 (09:00)
[2017-04-24] MEDS: FAMOTIDINE 20 MG TABLET PO SCH (09:18)
[2017-04-24] MEDS: ATENOLOL 25 MG TABLET PO SCH (09:18)
[2017-04-24] MEDS: ENOXAPARIN 40 MG/0.4 ML SYRINGE SUBQ SCH (09:18)
[2017-04-24] MEDS: FUROSEMIDE 40 MG TABLET PO SCH (10:05)
[2017-04-24 13:59] VITALS: BP 147/69
--- NOTE | 2017-04-24 14:21 | Discharge Plan ---
Discharge Plan Disposition: Home, Self Care Condition: Stable Prescriptions: Furosemide [Lasix] 20 mg PO DAILY #7 tablet Nitrofurantoin [Macrobid] 100 mg PO BID #14 capsule Potassium Chloride 20 meq PO DAILY #7 packet Diet: Diabetic Activity Restrictions: Activity as Tolerated Shower Restrictions: No Assistance Devices: Walker Weight Bearing: Full Weight Instruction Topics: UTI, Nitrofurantoin tablets or capsules, Heart Failure, Furosemide tablets, Potassium, Wound Dressing Steps Additional Instructions or Follow Up instructions: May follow up PCP at 3-4 days, and follow up tree wrapper in two weeks, have dressing changing as nurse instruction. Follow-Up Care: Home Health - RN, Home Health - PT, Home Health - OT No Smoking: If you smoke, Please STOP! Call for help. Follow-up with: Umm Corbett PA [Primary Care Provider] -
--- NOTE | 2017-04-24 14:29 | DISCHARGE SUMMARY ---
Discharge Summary Discharge Date: 04/24/17 Discharging Provider: MUHAMMAD Primary Care Provider: Umm Weston Condition at Discharge: Stable Discharge Disposition: Home, Self Care Discharge Facility Name: home - DIAGNOSES Admission Diagnoses: (1) UTI (urinary tract infection) (2) SIRS (systemic inflammatory response syndrome) (3) Bed sore (4) DM2 (diabetes mellitus, type 2) (5) HTN (hypertension) (6) Weakness generalized Discharge Diagnoses with Status of Each Condition: (1) UTI (urinary tract infection) no fever, chill, dysuria. But WBC is 11.9. I discussed the result with pt. Pt request to be discharged to home very strongly. I prescribed antibiotics to pt for continue the antibiotics course. Pt is advised, her condition is not stable , it could deteriorate. Pt state she understand. Pt is advised to see PCP in 3- 4 days, and should symptoms return or worsen, call 911 or present ER. Pt state she will and understand (2) SIRS (systemic inflammatory response syndrome) no fever,chill, continue antibiotics to finish the antibiotics course. (3) Bed sore better, follow nurse instruction for dress changing. (4) DM2 (diabetes mellitus, type 2) stable (5) HTN (hypertension) stable (6) Weakness generalized Pt is recommended to SNF, but pt just requests to be discharged to home. Home health PT/OT/RN are arranged to pt. (7) Shortness of breath resolved, 96% SO2 on room air. (8) mild impaired LV function 45-50% EF ECHO report, and I discussed with this result with pt. Pt is advised to PCP in 3-4 days, and follow up Geriatrics Physician. - HPI History of Present Illness: A 77-year-old female with a past medical history significant for HTN, DM2, peripheral neuropathy, osteoarthritis, chronic back pain, present ER for evaluation of fever, nausea, vomiting and weakness. Pt report she had fever 102 degree at home on yesterday, and nausea, vomiting, loose stool and sometime diarrhea for two weeks. Pt report she usually can walk but recently she feel very weakness and can not walk more. Pt also report she had a ulcer at her back for at least couple months, and report she has been under nurse's wound care on [facility]. Pt denies chest pain, shortness of breathing, cough, headache, dysuria, hematuria, abdominal pain, GI bleeding, vision changing. Today in ER pt has elevated temperature to 37.6 C. UA reveals positive UTI. pt has elevated WBC to 13.8. Pt is admitted for further evaluation and treatment of UTI, weakness. - HOSPITAL COURSE Hospital Course: Pt was admitted for UTI and fever. Pt was treated with Rocephin, IVF initiate. Then Pt did not have more fever. Pt developed some shortness of breath. CXR and ECHO study show pt had some edema at her lung, and mildly impaired LV function. Pt begin to have Lasix. Then pt's symptoms significantly improved. No more shortness of breath. On room air with SO2 at 96%. Pt's hypokalemia was replaced with potassium. Pt request very strongly to be discharged on 04/24/17. Pt is advised her condition is unstable, could deteriorate. Pt state she understand and persist she want to be discharged. Pt is prescribed antibiotics to continue for UTI treatment course. Pt is prescribed lower dosage of Lasix 20 mg daily to continue for fluid out, and Potassium pill 20 meq daily to pt. Pt is advised to follow up PCP in 3-4 days, and follow up machine hose cutter. Pt is advised, should symptoms return or worsen, call 911 or present ER. - ALLERGIES Allergies/Adverse Reactions: Allergies Allergy/AdvReac Type Severity Reaction Status Date / Time SO Inhibitors Allergy Unknown Verified 04/21/17 15:53 cyclobenzaprine Allergy Unknown Verified 04/21/17 16:09 [From Flexeril] venom-honey bee Allergy Unknown Verified 04/21/17 15:53 - MEDICATIONS Home Medications: Ambulatory Orders Medication Instructions Recorded Confirmed Acetaminophen 500 mg PO DAILY 02/13/16 04/21/17 Amitriptyline HCl 5 mg PO QPM PRN 02/13/16 04/22/17 Atenolol 25 mg PO DAILY 02/13/16 04/22/17 metFORMIN [Glucophage] 1,000 mg PO QDBREAKFAST 04/21/17 04/22/17 Loratadine [Claritin] 10 mg PO DAILY PRN 04/22/17 04/22/17 metFORMIN [Glucophage] 500 mg PO QDDINNER 04/22/17 04/22/17 Furosemide [Lasix] 20 mg PO DAILY #7 tablet 04/24/17 Nitrofurantoin [Macrobid] 100 mg PO BID #14 capsule 04/24/17 Potassium Chloride 20 meq PO DAILY #7 packet 04/24/17 - PHYSICAL EXAM AT DISCHARGE General Appearance: positive: No acute distress, Alert. negative: Lethargic Eyes Bilateral: positive: Normal inspection, PERRL, No lid inflammation, Conjunctivae nml ENT: positive: ENT inspection nml, Pharynx nml, No signs of dehydration. negative: Purulent nasal drainage, Pharyngeal erythema, Oral lesions Neck: positive: Nml inspection, Thyroid nml, No JVD, Trachea midline. negative : Thyromegaly, Lymphadenopathy (R), Lymphadenopathy (L), Stiff neck, Carotid bruit, Swelling/bruising, Tracheal deviation Respiratory: positive: Chest non-tender, No respiratory distress, Breath sounds nml. negative: Wheezes, Rales, Rhonchi Cardiovascular: positive: Regular rate & rhythm, No murmur, No gallop. negative : Irregularly irregular, Extrasystoles, Tachycardia, Bradycardia, Systolic murmur, Diastolic murmur Peripheral Pulses: positive: 2+ Abdomen: negative: Non-tender, No organomegaly, Nml bowel sounds, No distention , Tenderness, Guarding, Rebound Back: positive: Nml inspection. negative: CVA tenderness (R), CVA tenderness (L ) Skin: positive: Color nml, No rash, Warm, Dry. negative: Cyanosis, Diaphoresis , Pallor, Skin rash Extremities: positive: Non-tender, Full ROM, Nml appearance. negative: Calf tenderness, Joint swelling, Jessie's sign/cords Neurologic/Psychiatric: positive: Oriented x3, Motor nml, Sensation nml, Mood/ affect nml. negative: Sensory loss, Facial droop, Slurred/abnml speech, Depressed mood/affect - LABS Result Diagrams: 04/24/17 05:53 04/24/17 12:25 - FOLLOW UP Follow Up: May follow up PCP in 3-4 days, and machine hose cutter in one to two weeks. - TIME SPENT Time Spent in Discharge (Minutes): 45
== END 2017-04-24 15:15 | disposition home or self-care (01) | DRG 690 ==
LOC: EDUNIT# → ED 15:13 → MS2 18:26
PROVIDERS: ADMIT Nurse Practitioner Gerontology; ATTEND Nurse Practitioner Gerontology
DX: N39.0 Urinary tract infection, site not specified (principal); L89.301 Pressure ulcer of unspecified buttock, stage 1; R32 Unspecified urinary incontinence; I10 Essential (primary) hypertension; E11.42 Type 2 diabetes mellitus with diabetic polyneuropathy; R35.0 Frequency of micturition; I11.9 Hypertensive heart disease without heart failure; M19.90 Unspecified osteoarthritis, unspecified site; G89.29 Other chronic pain; M54.9 Dorsalgia, unspecified; E66.9 Obesity, unspecified; Z68.36 Body mass index [BMI] 36.0-36.9, adult; Z66 Do not resuscitate; Z96.649 Presence of unspecified artificial hip joint; Z96.659 Presence of unspecified artificial knee joint; Z79.84 Long term (current) use of oral hypoglycemic drugs; Z79.899 Other long term (current) drug therapy; Z87.891 Personal history of nicotine dependence
CPT/HCPCS: 36415; 51701; 71045; 80048; 80053; 81001; 81003; 83036; 83605; 83735; 83880; 84132; 84484; 85025; 85651; 86140; 87040; 87086; 87275; 87276; 87493; 93306; 94640; 94664; 96365; 96366; 99284; 99285

== ENCOUNTER 2017-05-04 08:00 | Outpatient (CLI) | payer MEDICARE, BC ==
[2017-05-04 17:06] LABS: BILIRUBIN,URINE NEGATIVE (NEGATIVE); GLUCOSE, URINE (UA) NEGATIVE (NEGATIVE); KETONES,URINE (UA) NEGATIVE (NEGATIVE); LEUKOCYTE ESTERASE, URINE SMALL (NEGATIVE); NITRITE,URINE NEGATIVE (NEGATIVE); OCCULT BLOOD,URINE MODERATE (NEGATIVE); PROTEIN,URINE TRACE mg/dL (NEGATIVE); UROBILINOGEN,URINE 0.2 (NORMAL) E.U./dL (NORMAL)
[2017-05-04 17:54] LABS: CLARITY,URINE TURBID (CLEAR)
[2017-05-04 17:55] LABS: AMORPHOUS SEDIMENT,UR Few /LPF; BACTERIA,URINE Many /HPF (None Seen); SQUAMOUS EPITHELIAL CELL,UR MOD Squamous (<= Few)
== END 2017-05-04 08:01 | disposition home or self-care (01) ==
LOC: LAB.R 08:00
PROVIDERS: ATTEND Family Medicine
DX: N39.0 Urinary tract infection, site not specified (principal)
CPT/HCPCS: 81001; 81003; 87086

== ENCOUNTER 2017-11-22 15:32 | Outpatient (CLI) | payer MEDICARE, BC ==
--- NOTE | 2017-11-23 09:42 | Ultrasound Report ---
Procedure Date: 11/22/2017 Accession Number: [id number] / [id number] Procedure: US - Pelvic Complete CPT Code: FULL RESULT: EXAM: PELVIC ULTRASOUND EXAM DATE: 11/22/2017 04:00 PM. CLINICAL HISTORY: PELVIC PAIN, FAM HX OVARIAN CA. Postmenopausal. History of hysterectomy. COMPARISON: 11/11/2007. TECHNIQUE: Realtime transabdominal pelvic scan performed to identify the uterus and adnexa and as an overview of other pelvic structures, followed by transvaginal scan to provide greater detail of the uterus and adnexa, with static image documentation. FINDINGS: Uterus: Uterus is absent. Right Ovary: Right ovary is not visualized which may be due to ovarian size or position. Left Ovary: Left ovary is not visualized which may be due to ovarian size or position. Free Fluid: None. Other: None. IMPRESSION: 1. Status post hysterectomy. 2. Ovaries are not visualized. No adnexal masses. 3. No pelvic free fluid. [facility]
== END 2017-11-22 15:33 | disposition home or self-care (01) ==
LOC: DI 15:32
PROVIDERS: ATTEND Physician Assistant
DX: R10.2 Pelvic and perineal pain (principal); Z78.0 Asymptomatic menopausal state; Z80.41 Family history of malignant neoplasm of ovary
CPT/HCPCS: 76856

== ENCOUNTER 2017-12-28 13:55 | Outpatient (CLI) | payer MEDICARE, BC ==
--- NOTE | 2017-12-29 09:06 | Mammography Report ---
Reason: SCREENING MAMMO Procedure Date: 12/28/2017 Accession Number: [id number] / [id number] Procedure: JUS - Screening Mammo Dig Bilat CPT Code: FULL RESULT: EXAM: Screening Mammo Dig Bilat DATE: 12/28/2017 2:37 PM CLINICAL HISTORY: 77 year-old nulliparous female with history of right breast cyst removal. TECHNIQUE: Bilateral CC and MLO views were obtained. COMPARISON: 09/19/2012, 11/13/2010, 03/15/2009, 08/18/2007. FINDINGS: The breasts demonstrate diffuse fatty replacement bilaterally. Typically benign coarse calcifications are seen bilaterally. No suspicious masses, clustered microcalcifications, or regions of architectural distortion are identified. IMPRESSION: Benign findings RECOMMENDATION: Routine annual screening unless otherwise clinically indicated. BIRADS CATEGORY 2: Benign findings STANDARD QUALIFYING STATEMENTS: 1. This examination was reviewed without the aid of Computer-Aided Detection (CAD). 2. A negative or benign imaging report should not delay biopsy if clinically suspicious findings are present. Consider surgical consultation if warrented. More than 5% of cancers are not identified by imaging. 3. Dense breasts may obscure an underlying neoplasm.
== END 2017-12-28 13:56 | disposition home or self-care (01) ==
LOC: DI 13:55
PROVIDERS: ATTEND Physician Assistant
DX: Z12.31 Encounter for screening mammogram for malignant neoplasm of breast (principal)
CPT/HCPCS: 77067

== ENCOUNTER 2018-06-28 15:11 | Outpatient (CLI) | payer MEDICARE, BC ==
--- NOTE | 2018-06-28 23:11 | Ultrasound Report ---
Reason: CHRONIC KIDNEY DISEASE,STAGE 3 Procedure Date: 06/28/2018 Accession Number: [id number] / [id number] Procedure: US - Retroperitoneal CPT Code: FULL RESULT: EXAM: RENAL ULTRASOUND EXAM DATE: 06/28/2018 04:05 PM. CLINICAL HISTORY: CHRONIC KIDNEY DISEASE,STAGE 3. COMPARISON: None. TECHNIQUE: Real-time scanning was performed with static images obtained. FINDINGS: Right Kidney: 11.6 x 6 x 5.6 cm. Echogenic renal cortex. No contour deforming mass, stones or hydronephrosis. Left Kidney: 9.5 x 4.7 x 6.1 cm. Echogenic renal cortex. No contour deforming mass, stones or hydronephrosis.Multiple renal cysts with the largest noted in the inferior kidney measuring 2.6 x 2.4 x 2.8 cm. Bladder: Bilateral jets seen. The prevoid bladder volume was 57.7 cc. The postvoid bladder volume was 14.4 cc. Other: Study limited by body habitus and limited mobility of the patient. Patient could not move into the decubitus position. IMPRESSION: 1. Study limited due to body habitus and limited patient mobility. 2. Echogenic renal cortex noted. Findings are nonspecific but can be associated with chronic medical renal disease. 3. 2.8 cm simple left renal cyst. No renal mass, stone or hydronephrosis. 4. Normal bladder. [facility]
== END 2018-06-28 15:12 | disposition home or self-care (01) ==
LOC: DI 15:11
PROVIDERS: ATTEND Physician Assistant
DX: N18.3 Chronic kidney disease, stage 3 (moderate) (principal); N28.1 Cyst of kidney, acquired
CPT/HCPCS: 76770

== ENCOUNTER 2018-07-12 14:00 | Outpatient (CLI) | payer MEDICARE, BC ==
[2018-07-12 17:33] LABS: HGB - HEMOGLOBIN 12.7 g/dL (12.0-16.0); MEAN CORPUSCULAR HEMOGLOBIN 28.7 pg (27.0-31.0); MEAN CORPUSCULAR HGB CONC 31.9 g/dL (32.0-36.0); MEAN CORPUSCULAR VOLUME 90.1 fL (81.0-99.0); MEAN PLATELET VOLUME 10.3 fL (7.9-10.8); RED BLOOD COUNT 4.43 10^6/uL (4.20-5.40); RED CELL DISTRIBUTION WIDTH 13.6 % (12.0-15.0); WHITE BLOOD COUNT 11.9 x10^3/uL (4.8-10.8)
[2018-07-12 17:47] LABS: CREATININE,URINE 100.8 mg/dL; PROTEIN/CREATININE RATIO,URINE 0.3 (<=0.2)
[2018-07-12 17:50] LABS: CREATININE 1.3 mg/dL (0.4-1.0)
== END 2018-07-12 14:01 | disposition home or self-care (01) ==
LOC: LAB.F 14:00
PROVIDERS: ATTEND Internal Medicine Nephrology
DX: N05.9 Unspecified nephritic syndrome with unspecified morphologic changes (principal); D70.9 Neutropenia, unspecified; D63.1 Anemia in chronic kidney disease; R80.9 Proteinuria, unspecified
CPT/HCPCS: 36415; 80048; 82570; 84156; 85027

== ENCOUNTER 2018-08-16 09:55 | Outpatient (CLI) | payer MEDICARE, BC ==
[2018-08-16 17:37] LABS: CREATININE 1.4 mg/dL (0.4-1.0)
== END 2018-08-16 09:56 | disposition home or self-care (01) ==
LOC: LAB.F 09:55
PROVIDERS: ATTEND Internal Medicine Nephrology
DX: N05.9 Unspecified nephritic syndrome with unspecified morphologic changes (principal)
CPT/HCPCS: 36415; 82565

== ENCOUNTER 2019-07-20 08:00 | Outpatient (CLI) | payer MEDICARE, BC ==
[2019-07-20 13:55] LABS: ALBUMIN 3.9 g/dL (3.2-5.5); ALBUMIN/GLOBULIN RATIO 1.2 (1.0-2.2); BILIRUBIN,TOTAL 0.8 mg/dL (0.2-1.0); CALCIUM 8.8 mg/dL (8.5-10.3); CREATININE 1.4 mg/dL (0.4-1.0); TOTAL PROTEIN 7.1 g/dL (6.7-8.2)
[2019-07-20 14:07] LABS: HB2 TOTAL 13.1 g/dL; HEMOGLOBIN A1C 0.74 g/dL; HEMOGLOBIN A1C % 7.3 % (4.6-6.2)
== END 2019-07-20 23:59 | disposition home or self-care (01) ==
LOC: LAB.R 08:00
PROVIDERS: ATTEND Family Medicine
DX: E11.22 Type 2 diabetes mellitus with diabetic chronic kidney disease (principal); N18.9 Chronic kidney disease, unspecified
CPT/HCPCS: 80053; 83036

== ENCOUNTER 2020-03-05 07:00 | Outpatient (CLI) | payer MEDICARE, BC ==
[2020-03-05 17:07] LABS: CREATININE,URINE 122.1 mg/dL; MICROALBUM/CREATININE RATIO,UR 44.2 ug/mg (<30.0); MICROALBUMIN,URINE 5.4 mg/dL (0-300.0)
[2020-03-05 17:54] LABS: ALBUMIN 3.8 g/dL (3.2-5.5); ALBUMIN/GLOBULIN RATIO 1.2 (1.0-2.2); ALKALINE PHOSPHATASE 100 IU/L (42-121); ALT ALANINE AMINOTRANSFERASE 17 IU/L (10-60); AST ASPARTATE AMINOTRANSFERASE 20 IU/L (10-42); BILIRUBIN,TOTAL 0.4 mg/dL (0.2-1.0); BUN - BLOOD UREA NITROGEN 29 mg/dL (6-20); CALCIUM 8.7 mg/dL (8.5-10.3); CARBON DIOXIDE - CO2 24 mmol/L (21-32); CHLORIDE 101 mmol/L (101-111); CHOL/HDL RATIO 3.6 (<4.4); CHOLESTEROL 167 mg/dL; CREATININE 1.5 mg/dL (0.4-1.0); GLUCOSE 159 mg/dL (70-100); HDL CHOLESTEROL 46 mg/dL; LDL CHOLESTEROL,CALCULATED 74 mg/dL; LDL/HDL RATIO 1.6 (<4.4); SODIUM 139 mmol/L (135-145); VLDL CHOLESTEROL 47 mg/dL
[2020-03-05 18:52] LABS: HEMOGLOBIN A1c% 7.5 % (4.27-6.07)
== END 2020-03-05 23:59 | disposition home or self-care (01) ==
LOC: LAB.R 07:00
DX: E11.22 Type 2 diabetes mellitus with diabetic chronic kidney disease (principal)
CPT/HCPCS: 80053; 80061; 82043; 82570; 83036; 83721

== ENCOUNTER 2020-03-19 07:00 | Outpatient (CLI) | payer MEDICARE, BC ==
[2020-03-19 15:31] LABS: ALBUMIN 3.8 g/dL (3.2-5.5); CREATININE 1.3 mg/dL (0.4-1.0); PHOSPHORUS 3.7 mg/dL (2.5-4.6)
== END 2020-03-19 23:59 | disposition home or self-care (01) ==
LOC: LAB.R 07:00
PROVIDERS: ATTEND Family Medicine
DX: N18.30 Chronic kidney disease, stage 3 unspecified (principal)
CPT/HCPCS: 80069

== ENCOUNTER 2021-03-25 11:05 | Outpatient (CLI) | payer MEDICARE, BC ==
[2021-03-25 14:47] LABS: ALBUMIN 3.3 g/dL (3.2-5.5); ALBUMIN/GLOBULIN RATIO 0.9 (1.0-2.2); ALKALINE PHOSPHATASE 93 IU/L (42-121); ALT ALANINE AMINOTRANSFERASE 12 IU/L (10-60); AST ASPARTATE AMINOTRANSFERASE 17 IU/L (10-42); BILIRUBIN,TOTAL 0.7 mg/dL (0.2-1.0); BUN - BLOOD UREA NITROGEN 25 mg/dL (6-20); CALCIUM 8.7 mg/dL (8.5-10.3); CARBON DIOXIDE - CO2 24 mmol/L (21-32); CHLORIDE 104 mmol/L (101-111); CHOL/HDL RATIO 3.7 (<4.4); CHOLESTEROL 157 mg/dL; CREATININE 1.5 mg/dL (0.4-1.0); GFR - MDRD 33 (>89); GLUCOSE 325 mg/dL (70-100); HDL CHOLESTEROL 42 mg/dL; LDL CHOLESTEROL,CALCULATED 78 mg/dL; LDL/HDL RATIO 1.9 (<4.4); POTASSIUM 4.3 mmol/L (3.5-5.0); SODIUM 138 mmol/L (135-145); TOTAL PROTEIN 6.9 g/dL (6.7-8.2); TRIGLYCERIDES 187 mg/dL; VLDL CHOLESTEROL 37 mg/dL
[2021-03-25 14:52] LABS: CREATININE,URINE 94.7 mg/dL; MICROALBUMIN,URINE 30.3 mg/dL (0-300.0)
[2021-03-25 20:53] LABS: ESTIMATED AVERAGE GLUCOSE 189 mg/dL (70-100); HEMOGLOBIN A1c% 8.2 % (4.27-6.07)
== END 2021-03-25 11:06 | disposition home or self-care (01) ==
LOC: LAB.S 11:05
PROVIDERS: ATTEND Registered Nurse
DX: E11.22 Type 2 diabetes mellitus with diabetic chronic kidney disease (principal); N18.9 Chronic kidney disease, unspecified
CPT/HCPCS: 36415; 80053; 80061; 82043; 82570; 83036; 83721

== ENCOUNTER 2021-05-03 18:05 | Outpatient (CLI) | payer MEDICARE, BC | END 2021-05-03 18:06 | disposition EMS.NT | LOC: EMS 18:05 | DX: Z03.89 Encounter for observation for other suspected diseases and conditions ruled out (principal) ==

== ENCOUNTER 2022-02-17 08:00 | Outpatient (CLI) | payer MEDICARE, BC ==
[2022-02-17 12:10] LABS: ALBUMIN 3.4 g/dL (3.2-5.5); ALKALINE PHOSPHATASE 72 IU/L (42-121); ALT ALANINE AMINOTRANSFERASE < 10 IU/L (10-60); AST ASPARTATE AMINOTRANSFERASE 18 IU/L (10-42); BILIRUBIN,DIRECT 0.1 mg/dL (0.1-0.5); BILIRUBIN,TOTAL 0.4 mg/dL (0.2-1.0); BUN - BLOOD UREA NITROGEN 28 mg/dL (6-20); CARBON DIOXIDE - CO2 23 mmol/L (21-32); CHLORIDE 106 mmol/L (101-111); CREATININE 1.7 mg/dL (0.4-1.0); GFR - MDRD 29 (>89); GLUCOSE 174 mg/dL (70-100); SODIUM 139 mmol/L (135-145); TOTAL PROTEIN 6.8 g/dL (6.7-8.2)
[2022-02-17 13:52] LABS: ESTIMATED AVERAGE GLUCOSE 146 mg/dL (70-100); HEMOGLOBIN A1c% 6.7 % (4.27-6.07)
== END 2022-02-17 23:59 | disposition home or self-care (01) ==
LOC: LAB.R 08:00
PROVIDERS: ATTEND Registered Nurse
DX: E11.65 Type 2 diabetes mellitus with hyperglycemia (principal); N18.30 Chronic kidney disease, stage 3 unspecified
CPT/HCPCS: 80048; 80076; 83036

== ENCOUNTER 2022-02-25 15:30 | Outpatient (CLI) | payer MEDICARE, BC ==
[2022-02-26 15:53] LABS: CREATININE,URINE 120.9 mg/dL; MICROALBUM/CREATININE RATIO,UR 186.9 ug/mg (<30.0); MICROALBUMIN,URINE 22.6 mg/dL (0-300.0)
== END 2022-02-25 23:59 | disposition home or self-care (01) ==
LOC: LAB.R 15:30
PROVIDERS: ATTEND Registered Nurse
DX: E11.65 Type 2 diabetes mellitus with hyperglycemia (principal)
CPT/HCPCS: 82043; 82570

== ENCOUNTER 2022-03-04 08:00 | Outpatient (CLI) | payer MEDICARE, BC ==
[2022-03-04 15:44] LABS: ALBUMIN 3.5 g/dL (3.2-5.5); CALCIUM 8.8 mg/dL (8.5-10.3); CREATININE 1.7 mg/dL (0.4-1.0); PHOSPHORUS 3.4 mg/dL (2.5-4.6); POTASSIUM 4.6 mmol/L (3.5-5.0)
== END 2022-03-04 23:59 | disposition home or self-care (01) ==
LOC: LAB.S 08:00
PROVIDERS: ATTEND Registered Nurse
DX: E11.22 Type 2 diabetes mellitus with diabetic chronic kidney disease (principal)
CPT/HCPCS: 36415; 80069

== ENCOUNTER 2022-03-08 17:01 | Outpatient (CLI) | payer MEDICARE, BC | END 2022-03-08 23:59 | disposition critical access hospital (66) | LOC: EMS 17:01 | DX: R09.89 Other specified symptoms and signs involving the circulatory and respiratory systems (principal); R50.9 Fever, unspecified; R05.9 Cough, unspecified; R19.7 Diarrhea, unspecified; R53.1 Weakness | CPT/HCPCS: A0425; A0429 ==

== ENCOUNTER 2022-03-08 17:47 | Inpatient (IN) | payer MEDICARE, BC ==
--- NOTE | 2022-03-08 18:14 | ED Physician Documentation ---
History of Present Illness - Stated complaint Stated Complaint: DIFF BREATHING - Chief complaint Chief Complaint: Resp - History obtained from History obtained from: Patient, Caregiver - Additonal information Additional information: Patient is an 81-year-old female with a past medical history of Diabetes type 2, Osteoarthritis, neuropathy, hypertension, poor mobility who resides at a adult family home and presents with a week or 2 of just generally feeling unwell. Patient has no specific symptoms but feels fatigued, denies cough or congestion, no chest pain or difficulty breathing, no fever chills, no abdominal pain, no nausea vomiting or diarrhea, no dysuria or other urinary symptoms. Her caregiver does state that the patient had a day of soft stools today but only 1, nonbloody. Caregiver states that numerous people in the household are sick with cold and flulike symptoms. 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 HEENT: Cataracts, Tonsil/Adenoidectomy - Present Medications Home Medications: Ambulatory Orders Medication Instructions Recorded Confirmed Acetaminophen 500 mg PO DAILY 02/13/16 04/21/17 Amitriptyline HCl 5 mg PO QPM PRN 02/13/16 04/22/17 atenoloL [Atenolol] 25 mg PO DAILY 02/13/16 04/22/17 metFORMIN [Glucophage] 1,000 mg PO QDBREAKFAST 04/21/17 04/22/17 Loratadine [Claritin] 10 mg PO DAILY PRN 04/22/17 04/22/17 metFORMIN [Glucophage] 500 mg PO QDDINNER 04/22/17 04/22/17 Furosemide [Lasix] 20 mg PO DAILY #7 tablet 04/24/17 Nitrofurantoin [Macrobid] 100 mg PO BID #14 capsule 04/24/17 Potassium Chloride 20 meq PO DAILY #7 packet 04/24/17 - Allergies Allergies/Adverse Reactions: Allergies Allergy/AdvReac Type Severity Reaction Status Date / Time SO Inhibitors Allergy Unknown Verified 04/21/17 15:53 cyclobenzaprine Allergy Unknown Verified 04/21/17 16:09 [From Flexeril] venom-honey bee Allergy Unknown Verified 04/21/17 15:53 - Social History Does the pt smoke?: No Smoking Status: Former smoker Does the pt drink ETOH?: No Does the pt have substance abuse?: No - POLST Patient has POLST: Yes POLST Status: DNR PD ED PE NORMAL - Vitals Vital signs reviewed: Yes - General General: Alert and oriented X 3, No acute distress, Well developed/nourished - HEENT HEENT: Atraumatic, Moist mucous membranes, Pharynx benign - Neck Neck: Supple, no meningeal sign, No adenopathy, No JVD - Cardiac Cardiac: RRR, No murmur, No gallop, No rub, Strong equal pulses - Respiratory Respiratory: No respiratory distress, Clear bilaterally - Abdomen Abdomen: Normal bowel sounds, Soft, Non tender, Non distended, No organomegaly - Back Back: No CVA TTP - Derm Derm: Normal color, Warm and dry, No rash - Extremities Extremities: No deformity, No edema - Neuro Neuro: Alert and oriented X 3 Eye Opening: Spontaneous Motor: Obeys Commands Verbal: Oriented GCS Score: 15 - Psych Psych: Normal mood, Normal affect Results - Vitals Vitals: Vital Signs - 24 hr 03/08/22 03/08/22 03/08/22 17:48 17:52 19:22 Temperature 37.7 C Heart Rate 76 78 66 Respiratory 18 25 H 24 Rate Blood Pressure 173/72 H 173/72 H 155/63 H O2 Saturation 87 L 95 95 If not protocol 2 2 : Oxygen Flow, liters/minute 03/08/22 03/08/22 03/08/22 19:30 20:00 20:30 Temperature 37.1 C Heart Rate 69 75 76 Respiratory 25 H 26 H 26 H Rate Blood Pressure 155/63 H 159/63 H 143/62 H O2 Saturation 91 L 94 93 If not protocol 2 1.5 1.5 : Oxygen Flow, liters/minute 03/08/22 03/08/22 21:30 22:00 Temperature Heart Rate 78 Respiratory 27 H Rate Blood Pressure 147/66 H O2 Saturation 87 L 93 If not protocol 2 : Oxygen Flow, liters/minute Oxygen O2 Source Nasal cannula Oxygen Flow Rate 2 - EKG (time done) No standard instances Rate: Rate (enter#) (76) Rhythm: NSR [place]: Normal Intervals: Normal MD QRS: Normal Ischemia: Non specific changes Compare to prior EKG: Old EKG unavailable Computer interpretation: Agree with computer - Labs Labs: Laboratory Tests 03/08/22 03/08/22 03/08/22 18:06 18:06 18:06 WBC 9.0 RBC 4.65 Hgb 12.3 Hct 41.3 MCV 88.8 MCH 26.5 L MCHC 29.8 L RDW 14.6 Plt Count 219 MPV 9.8 Neut # (Auto) 5.5 Lymph # (Auto) 2.9 [place] # (Auto) 0.5 Eos # (Auto) 0.0 Baso # (Auto) 0.0 Absolute Nucleated RBC 0.00 Nucleated RBC % 0.0 Sodium 140 Potassium 4.9 Chloride 106 Carbon Dioxide 24 Anion Gap 10.0 BUN 32 H Creatinine 1.6 H Estimated GFR (MDRD) 31 L Glucose 106 H Calcium 8.4 L Total Bilirubin 0.5 AST 23 ALT 11 Alkaline Phosphatase 68 Troponin I High Sens 23.1 H* B-Natriuretic Peptide Total Protein 7.1 Albumin 2.8 L Globulin 4.3 H Albumin/Globulin Ratio 0.7 L Lipase 24 Nasal Influenza A H3 PCR Nasal Influenza B PCR Nasal RSV (PCR) Nasal SARS-CoV-2 (PCR) 03/08/22 03/08/22 03/08/22 18:06 18:20 20:17 WBC RBC Hgb Hct MCV MCH MCHC RDW Plt Count MPV Neut # (Auto) Lymph # (Auto) [place] # (Auto) Eos # (Auto) Baso # (Auto) Absolute Nucleated RBC Nucleated RBC % Sodium Potassium Chloride Carbon Dioxide Anion Gap BUN Creatinine Estimated GFR (MDRD) Glucose Calcium Total Bilirubin AST ALT Alkaline Phosphatase Troponin I High Sens 28.2 H* B-Natriuretic Peptide 495 H Total Protein Albumin Globulin Albumin/Globulin Ratio Lipase Nasal Influenza A H3 PCR DETECTED A Nasal Influenza B PCR NOT DETECTED Nasal RSV (PCR) NOT DETECTED Nasal SARS-CoV-2 (PCR) NOT DETECTED PD MEDICAL DECISION MAKING - ED course Complexity details: reviewed old records, reviewed results, re-evaluated patient, considered differential, d/w patient ED course: This is a 81-year-old female with past medical history of hypertension diabetes, osteoarthritis, neuropathy who resides in an adult family home who presented with generally not feeling well her course last 1 to 2 weeks without any specific symptoms. Patient was somewhat hypoxic on arrival 86 to 87% which quickly improved with 2 L nasal cannula. She had a cough but no other focal findings on physical exam. She denied any chest pain. She had no signs of fluid excess. We obtained a cardiac work-up including EKG which showed no acute ischemic changes, troponin was mildly elevated at 23 followed by a 2-hour troponin at 28. Given the patient had no chest pain. Her remaining labs are generally stable, renal function slightly worse than baseline. She was found on viral swabs to have the flu, COVID and RSV negative. Her chest x-ray was negative. We gave the patient a dose of oseltamivir and attempted to titrate her off oxygen and she did okay for a period of time saturating 9092% on room air but subsequently dipped down to 86 to 87% therefore I was not able to send her home. Patient therefore should be admitted for hypoxia secondary to influenza and also mildly elevated troponin without acute chest pain or EKG changes. I discussed the case with [facility] telehealth hospitalist, Dr. reilly who has kindly agreed to admit this patient. Departure - Departure Disposition: ED Place in Observation Clinical Impression: Influenza A, Acute respiratory failure with hypoxia, Elevated troponin
[2022-03-08 18:16] LABS: BASOPHILS % (AUTO) 0.2 %; EOSINOPHILS % (AUTO) 0.4 %; HCT - HEMATOCRIT 41.3 % (37.0-47.0); HGB - HEMOGLOBIN 12.3 g/dL (12.0-16.0); LYMPHOCYTES # (AUTO) 2.9 10^3/uL (1.5-3.5); LYMPHOCYTES % (AUTO) 31.9 %; MEAN CORPUSCULAR HEMOGLOBIN 26.5 pg (27.0-31.0); MEAN CORPUSCULAR HGB CONC 29.8 g/dL (32.0-36.0); MEAN CORPUSCULAR VOLUME 88.8 fL (81.0-99.0); MEAN PLATELET VOLUME 9.8 fL (7.9-10.8); MONOCYTES # (AUTO) 0.5 10^3/uL (0.0-1.0); NEUTROPHILS # (AUTO) 5.5 10^3/uL (1.5-6.6); NEUTROPHILS % (AUTO) 60.9 %; PLT - PLATELET COUNT 219 10^3/uL (130-450); RED BLOOD COUNT 4.65 10^6/uL (4.20-5.40); RED CELL DISTRIBUTION WIDTH 14.6 % (12.0-15.0)
--- NOTE | 2022-03-08 18:30 | XRAY Report ---
PROCEDURE: Chest 1 View X-Ray INDICATIONS: Chest Pain TECHNIQUE: One view of the chest was acquired. COMPARISON: Chest x-ray, 04/22/2017. FINDINGS: Surgical changes and devices: None. Lungs and pleura: No pleural effusions or pneumothorax. Bilateral interstitial prominence appears un changed. No focal consolidation. Mediastinum: Mediastinal contours appear normal. Heart size is normal. Bones and chest wall: No suspicious bony lesions. Overlying soft tissues appear unremarkable. IMPRESSION: 1. No acute cardiopulmonary disease. Reviewed by: Bella Ellison MD on 03/08/2022 6:29 PM [facility] Approved by: Bella Ellison MD on 03/08/2022 6:29 PM [facility] Station ID: [id number]
[2022-03-08 18:34] LABS: ALBUMIN 2.8 g/dL (3.2-5.5); ALBUMIN/GLOBULIN RATIO 0.7 (1.0-2.2); BILIRUBIN,TOTAL 0.5 mg/dL (0.2-1.0); CALCIUM 8.4 mg/dL (8.5-10.3); CREATININE 1.6 mg/dL (0.4-1.0); POTASSIUM 4.9 mmol/L (3.5-5.0); TOTAL PROTEIN 7.1 g/dL (6.7-8.2)
[2022-03-08 19:46] LABS: INFLUENZA A H3- RESP PCR PANEL DETECTED; INFLUENZA B - RESP PCR PANEL NOT DETECTED; RSV- RESP PCR PANEL NOT DETECTED; SARS-CoV-2 -RESP PCR PANEL NOT DETECTED
[2022-03-08] MEDS ORDERED: OSELTAMIVIR 75 MG CAPSULE PO STA (19:54)
[2022-03-09] MEDS ORDERED: AMITRIPTYLINE 10 MG TABLET PO PRN (00:52)
[2022-03-09] MEDS ORDERED: ONDANSETRON 4 MG/2 ML VIAL IVP PRN (00:53)
[2022-03-09] MEDS ORDERED: HYDROcod/ACETAM 5/325 MG TABLET PO PRN (00:53)
[2022-03-09] MEDS ORDERED: PROCHLORPERAZINE 10 MG/2 ML VIAL IVP PRN (00:53)
[2022-03-09] MEDS ORDERED: oxyCODONE 5 MG TABLET PO PRN (00:53)
[2022-03-09] MEDS ORDERED: IBUPROFEN 400 MG TABLET PO PRN (00:53)
[2022-03-09] MEDS ORDERED: SODIUM CHLORIDE FLUSH 0.9% 10 ML SYRINGE IVP PRN (00:53)
[2022-03-09] MEDS ORDERED: guaiFENesin 100 MG/5 ML UDC PO STA ×2 (01:04→03:21)
--- NOTE | 2022-03-09 01:09 | HISTORY & PHYSICAL EXAMINATION ---
Chief Complaint - Chief Complaint Chief Complaint: Sob and cough with weakness History of Present Illness - Admitted From Admitted From:: Home - History Obtained From Records Reviewed: Yes History obtained from: Fang special needs caregiver as well as patient Exam Limitations: difficuty hearing - History of Present Illness HPI Comment/Other: This is a 81-year-old female with past medical history of hypertension diabetes, osteoarthritis, neuropathy who resides in an adult family home who presented with generally not feeling well her course last 1 to 2 weeks without any specific symptoms. Patient was somewhat hypoxic on arrival 86 to 87% which quickly improved with 2 L nasal cannula. She had a cough but no other focal findings on physical exam. She denied any chest pain. She had no signs of fluid excess. ER obtained a cardiac work-up including EKG which showed no acute ischemic, baseline ekg is abnormal, changes, troponin was mildly elevated at 23 followed by a 2-hour troponin at 28. Given the patient had no chest pain. Her remaining labs are generally stable, renal function slightly worse than basel ine. She was found on viral swabs to have the flu +ve , COVID and RSV negative. Her chest x-ray was negative. We gave the patient a dose of oseltamivir and attempted to titrate her off oxygen and she did okay for a period of time saturating 90-92% on room air but subsequently dipped down to 86 to 87% therefore was not able to go home. Patient therefore should be admitted for hypoxia secondary to influenza and also mildly elevated troponin without acute chest pain or EKG changes. 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 - Substance History Use: Uses substance without health or social issues: NONE - POLST Patient has POLST: Yes POLST Status: DNR Meds/Allgy - Home Medications Home Medications: Ambulatory Orders Medication Instructions Recorded Confirmed Acetaminophen 500 mg PO DAILY 02/13/16 04/21/17 Amitriptyline HCl 5 mg PO QPM PRN 02/13/16 04/22/17 atenoloL [Atenolol] 25 mg PO DAILY 02/13/16 04/22/17 metFORMIN [Glucophage] 1,000 mg PO QDBREAKFAST 04/21/17 04/22/17 Loratadine [Claritin] 10 mg PO DAILY PRN 04/22/17 04/22/17 metFORMIN [Glucophage] 500 mg PO QDDINNER 04/22/17 04/22/17 Furosemide [Lasix] 20 mg PO DAILY #7 tablet 04/24/17 Nitrofurantoin [Macrobid] 100 mg PO BID #14 capsule 04/24/17 Potassium Chloride 20 meq PO DAILY #7 packet 04/24/17 - Allergies Allergies/Adverse Reactions: Allergies Allergy/AdvReac Type Severity Reaction Status Date / Time SO Inhibitors Allergy Unknown Verified 04/21/17 15:53 cyclobenzaprine Allergy Unknown Verified 04/21/17 16:09 [From Flexeril] venom-honey bee Allergy Unknown Verified 04/21/17 15:53 Review of Systems - Constitutional Constitutional: reports: Weakness, Poor appetite - Respiratory Respiratory: reports: Cough, Sputum production, SOB at rest, SOB with exertion - Neurological Neurological: reports: General weakness Prior Level of Functionality: Needs assitance from caregiver Exam - Vital Signs Vital Signs: Vital Signs x48h Temp Pulse Resp BP Pulse Ox O2 Flow Rate 03/09/22 00:30 77 22 164/66 H 95 2 03/08/22 23:00 97 17 115/74 99 03/08/22 22:30 77 25 H 164/79 H 94 03/08/22 22:00 78 27 H 147/66 H 93 2 03/08/22 21:30 87 L 03/08/22 20:30 37.1 C 76 26 H 143/62 H 93 1.5 03/08/22 20:00 75 26 H 159/63 H 94 1.5 03/08/22 19:30 69 25 H 155/63 H 91 L 2 03/08/22 19:22 66 24 155/63 H 95 2 03/08/22 17:52 78 25 H 173/72 H 95 2 03/08/22 17:48 37.7 C 76 18 173/72 H 87 L - Physical Exam General Appearance: positive: Mild distress, Moderate distress Respiratory: positive: Rhonchi Cardiovascular: positive: Regular rate & rhythm Extremities: positive: Non-tender, No pedal edema Sepsis Event Note (H) - Evaluation Current Stage of Sepsis: Ruled out Conclusion/Plan - Problem List (1) Acute respiratory failure with hypoxia Conclusion/Plan: Supportive care duonebs, cough syrup IS (2) Elevated troponin Conclusion/Plan: trend and repeat in am no cp , ekg abnormal but no concerning for active ischemia (3) Influenza A Conclusion/Plan: Droplet isolation Tamiflyu dose adjusted as per renal function if creatinine improves increase the dose in am (4) DM2 (diabetes mellitus, type 2) Conclusion/Plan: stable check a1c in am for now no concerns Qualifiers: 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
[2022-03-09 01:18] LABS: BASOPHILS % (AUTO) 0.2 %; EOSINOPHILS % (AUTO) 0.4 %; HCT - HEMATOCRIT 40.3 % (37.0-47.0); HGB - HEMOGLOBIN 12.2 g/dL (12.0-16.0); LYMPHOCYTES # (AUTO) 3.2 10^3/uL (1.5-3.5); LYMPHOCYTES % (AUTO) 35.6 %; MEAN CORPUSCULAR HEMOGLOBIN 26.7 pg (27.0-31.0); MEAN CORPUSCULAR HGB CONC 30.3 g/dL (32.0-36.0); MEAN CORPUSCULAR VOLUME 88.2 fL (81.0-99.0); MEAN PLATELET VOLUME 9.7 fL (7.9-10.8); MONOCYTES # (AUTO) 0.6 10^3/uL (0.0-1.0); MONOCYTES % (AUTO) 6.3 %; NEUTROPHILS # (AUTO) 5.1 10^3/uL (1.5-6.6); NEUTROPHILS % (AUTO) 57.2 %; PLT - PLATELET COUNT 209 10^3/uL (130-450); RED BLOOD COUNT 4.57 10^6/uL (4.20-5.40); RED CELL DISTRIBUTION WIDTH 14.6 % (12.0-15.0)
[2022-03-09] MEDS: SODIUM CHLORIDE FLUSH 0.9% 10 ML SYRINGE IVP SCH ×3 (02:06→19:29)
[2022-03-09] MEDS: SODIUM CHLORIDE 0.9% 1,000 ML IV SCH ×4 (02:06→23:32)
[2022-03-09] MEDS: guaiFENesin 600 MG TABLET PO SCH ×3 (02:45→20:33)
[2022-03-09] MEDS ORDERED: guaiFENesin/CODEINE 5 ML UDC PO STA (03:19)
[2022-03-09] MEDS ORDERED: metFORMIN 500 MG TABLET PO SCH ×2 (08:00→17:00)
[2022-03-09] MEDS: ACETAMINOPHEN 500 MG TABLET PO SCH (09:06)
[2022-03-09] MEDS: OSELTAMIVIR 30 MG CAPSULE PO SCH ×2 (09:06→20:33)
[2022-03-09] MEDS: atenoloL 25 MG TABLET PO SCH (09:07)
[2022-03-09] MEDS: FUROSEMIDE 40 MG TABLET PO SCH (09:07)
[2022-03-09] MEDS: INSULIN LISPRO 300 UNIT/3 ML PEN SUBQ SCH ×3 (11:55→21:17)
[2022-03-09] MEDS: IPRATROPIUM/ALBUTEROL 3 ML NEB INH PRN (14:07)
[2022-03-09] MEDS: NYSTATIN POWDER 15 GM TOP SCH ×2 (14:22→20:33)
[2022-03-09] MEDS: ZINC OXIDE 20% OINT 30 GM TUBE TOP PRN (14:23)
[2022-03-09] MEDS: ACETAMINOPHEN 325 MG TABLET PO PRN (14:50)
[2022-03-10 05:10] LABS: BASOPHILS % (AUTO) 0.2 %; EOSINOPHILS # (AUTO) 0.1 10^3/uL (0.0-0.7); EOSINOPHILS % (AUTO) 1.5 %; HCT - HEMATOCRIT 37.7 % (37.0-47.0); HGB - HEMOGLOBIN 11.4 g/dL (12.0-16.0); LYMPHOCYTES # (AUTO) 2.8 10^3/uL (1.5-3.5); LYMPHOCYTES % (AUTO) 28.9 %; MEAN CORPUSCULAR HEMOGLOBIN 26.7 pg (27.0-31.0); MEAN CORPUSCULAR HGB CONC 30.2 g/dL (32.0-36.0); MEAN CORPUSCULAR VOLUME 88.3 fL (81.0-99.0); MEAN PLATELET VOLUME 10.1 fL (7.9-10.8); MONOCYTES # (AUTO) 0.6 10^3/uL (0.0-1.0); NEUTROPHILS % (AUTO) 62.8 %; PLT - PLATELET COUNT 202 10^3/uL (130-450); RED BLOOD COUNT 4.27 10^6/uL (4.20-5.40); RED CELL DISTRIBUTION WIDTH 14.6 % (12.0-15.0); WHITE BLOOD COUNT 9.5 x10^3/uL (4.8-10.8)
[2022-03-10] MEDS: SODIUM CHLORIDE FLUSH 0.9% 10 ML SYRINGE IVP SCH ×3 (07:58→16:25)
[2022-03-10] MEDS: INSULIN LISPRO 300 UNIT/3 ML PEN SUBQ SCH ×4 (07:59→20:50)
[2022-03-10] MEDS: guaiFENesin 600 MG TABLET PO SCH ×2 (08:57→20:06)
[2022-03-10] MEDS: FUROSEMIDE 40 MG TABLET PO SCH (08:57)
[2022-03-10] MEDS: ACETAMINOPHEN 500 MG TABLET PO SCH (08:57)
[2022-03-10] MEDS: OSELTAMIVIR 30 MG CAPSULE PO SCH ×2 (08:58→20:06)
[2022-03-10] MEDS: NYSTATIN POWDER 15 GM TOP SCH ×2 (08:58→20:06)
[2022-03-10] MEDS: atenoloL 25 MG TABLET PO SCH (08:58)
--- NOTE | 2022-03-10 11:21 | PHARMACY PROGRESS NOTE ---
- Best Possible Medication History Admit Date and Time: 03/10/22 1019 Processed by: Pharmacy Medication History completed: Yes Patient Interview: Completed Secondary Source(s): Insurance records Per insurance records, the patient has a losartan 25 mg daily prescription from earlier this month. However, the patient reports she does not take this. As the person ultimately responsible for medication therapy, providers are able to order a medication from an existing home medication list in [facility] via the "Reconcile Routine" prior to Confirmation of that medication by support worker. Such practice is discouraged except when the physician, in their clinical judgment, deems that a medical need exists for a medication without regard to previous use.
[2022-03-10] MEDS: SODIUM CHLORIDE 0.9% 1,000 ML IV SCH (12:40)
--- NOTE | 2022-03-10 16:03 | PROVIDER PROGRESS NOTE ---
Assessment/Plan - Problem List (1) Acute respiratory failure with hypoxia Assessment/Plan: Cause is likely her Influenza A. 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 Plan: if SBP > 160 mm of hg may consider Hydralazine Will stop iv NS and being given with Lasix (5) Elevated troponin Conclusion/Plan: Ekg was abnormal but no concern for active ischemia with flat troponins (6) Weakness Conclusion/Plan: Today we learned from her caregiver at her bedside, that she is usually bedbound and then a lift is used to put her in a recliner. She no longer walks or stands or pivots. Plan: Will order OOB to chair via lift at least daily. No OT or PT planned therefore (7) Pressure ulcers Conclusion/Plan: RN has documented these in photos. She has a large Stage 1 decubitus ulcer and small R LL pressure ulcer poster0-layteral lower calf, almost at ankle Caregiver told the RN that she has a home health agency do dressing changes but we do not know with what Plan: We will ask our patient financial services manager to reach out to the home health agency and determine how they give care for the pressure ulcer. Will order dressings and turning to get pressure off the area of buttocks - Current Meds Current Meds: Current Medications Generic Name Dose Route Start Last Admin Trade Name Freq PRN Reason Stop Dose Admin Acetaminophen 500 mg 03/09/22 09:00 03/10/22 08:57 Acetaminophen 500 Mg Tablet PO 500 mg DAILY SHAMIR Administration Acetaminophen 650 mg 03/09/22 00:53 03/09/22 14:50 Acetaminophen 325 Mg Tablet PO 650 mg Q4HR PRN Administration Pain 1 to 4, or Fever Albuterol/Ipratropium 3 ml 03/09/22 01:04 03/09/22 14:07 Ipratropium/Albuterol 3 Ml Neb INH 3 ml Q4HR PRN Administration Wheezing Atenolol 25 mg 03/09/22 09:00 03/10/22 08:58 Atenolol 25 Mg Tablet PO 25 mg DAILY SHAMIR Administration Furosemide 20 mg 03/09/22 09:00 03/10/22 08:57 Furosemide 40 Mg Tablet PO 20 mg DAILY SHAMIR Administration Guaifenesin 1,200 mg 03/09/22 02:00 03/10/22 08:57 Guaifenesin 600 Mg Tablet PO 1,200 mg BID SHAMIR Administration Sodium Chloride 1,000 mls @ 75 mls/hr 03/09/22 01:00 03/10/22 12:40 Normal Saline 0.9% IV 75 mls/hr .[id number] SHAMIR Administration Insulin Human Lispro 1 - 9 unit 03/09/22 12:00 03/10/22 11:56 Insulin Lispro 300 Unit/3 Ml Pen SUBQ Not Given 0800,1200,1700,2100 [facility] Protocol Multi-Ingredient Ointment 1 applic 03/09/22 10:44 03/09/22 14:23 Zinc Oxide 20% Oint 30 Gm Tube TOP 1 applic PRN PRN Administration Skin Care Nystatin 1 applic 03/09/22 12:00 03/10/22 08:58 Nystatin Powder 15 Gm TOP 1 applic BID SHAMIR Administration Oseltamivir Phosphate 30 mg 03/09/22 09:00 03/10/22 08:58 Oseltamivir 30 Mg Capsule PO 30 mg BID SHAMIR Administration Sodium Chloride 10 ml 03/09/22 01:00 03/10/22 08:58 Sodium Chloride Flush 0.9% 10 Ml Syringe IVP Not Given 0100,0900,1700 [facility] - Lab Result Fish Bone Diagrams: 03/10/22 04:35 03/08/22 18:06 - Additional Planning My Orders: My Active Orders 03/10/22 10:23 Miscellaenous Nursing Order [RC] QSHIFT 03/10/22 Dinner Regular Diet [DIET] 03/10/22 17:00 Multivitamin W/Minerals [Theragran M] 1 tab PO DAILYWM Subjective - Subjective Patient Reports: Feeling Better (Reports still having a cough, cannot expectorate sputum and feels tired. Asks why she has to be here.) Objective Vital Signs: Vital Signs - 24 hr 03/09/22 03/09/22 03/09/22 16:10 20:00 20:19 Temperature 36.7 C 37.0 C Heart Rate [ 58 L 59 L Brachial] Respiratory 20 20 Rate Blood Pressure 121/40 L 124/46 L [Right Brachial artery] O2 Saturation 95 96 If not protocol 2 2 2 : Oxygen Flow, liters/minute 03/10/22 03/10/22 03/10/22 00:33 05:00 07:37 Temperature 36.9 C 37.0 C 37.2 C Heart Rate [ 61 62 63 Brachial] Respiratory 18 18 18 Rate Blood Pressure 142/46 H 145/49 H 144/47 H [Right Brachial artery] O2 Saturation 96 93 93 If not protocol 2 2 2 : Oxygen Flow, liters/minute 03/10/22 03/10/22 09:07 11:28 Temperature 36.7 C Heart Rate [ 63 Brachial] Respiratory 18 Rate Blood Pressure 145/47 H [Right Brachial artery] O2 Saturation 93 92 If not protocol 1 1 : Oxygen Flow, liters/minute Oxygen O2 Source Nasal cannula Oxygen Flow Rate 2 I&O (Last 24 Hrs): Intake and Output Totals x24h 03/08/22 03/09/22 03/10/22 23:59 23:59 23:59 Intake Total 1936 1937 Output Total 700 2200 Balance 1236 -263 General: Alert, Other (Appears tired, has a wet non-productive cough) HEENT: Mucous membr. moist/pink, Other (wearing O2 via n.c.) Neuro: Alert, Non Focal Cardiovascular: No murmurs Respiratory: Rhonchi (R base) Abdomen: Normal bowel sounds, Soft Extremities: Other (Trace edema, small Grade 1 ulcer/wound R lower lateral calf) Front/Back of Body, Lg (Color): 1 - Stage 1 decubitus ulcer - Results Results: Laboratory Results WBC 9.5 x10^3/uL (4.8-10.8) 03/10/22 04:35 RBC 4.27 10^6/uL (4.20-5.40) 03/10/22 04:35 Hgb 11.4 g/dL (12.0-16.0) L 03/10/22 04:35 Hct 37.7 % (37.0-47.0) 03/10/22 04:35 MCV 88.3 fL (81.0-99.0) 03/10/22 04:35 MCH 26.7 pg (27.0-31.0) L 03/10/22 04:35 MCHC 30.2 g/dL (32.0-36.0) L 03/10/22 04:35 RDW 14.6 % (12.0-15.0) 03/10/22 04:35 Plt Count 202 10^3/uL (130-450) 03/10/22 04:35 MPV 10.1 fL (7.9-10.8) 03/10/22 04:35 Neut # (Auto) 6.0 10^3/uL (1.5-6.6) 03/10/22 04:35 Lymph # (Auto) 2.8 10^3/uL (1.5-3.5) 03/10/22 04:35 [place] # (Auto) 0.6 10^3/uL (0.0-1.0) 03/10/22 04:35 Eos # (Auto) 0.1 10^3/uL (0.0-0.7) 03/10/22 04:35 Baso # (Auto) 0.0 10^3/uL (0.0-0.1) 03/10/22 04:35 Absolute Nucleated RBC 0.00 x10^3/uL 03/10/22 04:35 Nucleated RBC % 0.0 /100WBC 03/10/22 04:35 Sodium 140 mmol/L (135-145) 03/08/22 18:06 Potassium 4.9 mmol/L (3.5-5.0) 03/08/22 18:06 Chloride 106 mmol/L (101-111) 03/08/22 18:06 Carbon Dioxide 24 mmol/L (21-32) 03/08/22 18:06 Anion Gap 10.0 (6-13) 03/08/22 18:06 BUN 32 mg/dL (6-20) H 03/08/22 18:06 Creatinine 1.6 mg/dL (0.4-1.0) H 03/08/22 18:06 Estimated GFR (MDRD) 31 (>89) L 03/08/22 18:06 Glucose 106 mg/dL (70-100) H 03/08/22 18:06 Calcium 8.4 mg/dL (8.5-10.3) L 03/08/22 18:06 Total Bilirubin 0.5 mg/dL (0.2-1.0) 03/08/22 18:06 AST 23 IU/L (10-42) 03/08/22 18:06 ALT 11 IU/L (10-60) 03/08/22 18:06 Alkaline Phosphatase 68 IU/L (42-121) 03/08/22 18:06 Troponin I High Sens 37.8 ng/L (2.3-14.8) H* 03/09/22 01:11 B-Natriuretic Peptide 495 pg/mL (5-100) H 03/08/22 18:06 Total Protein 7.1 g/dL (6.7-8.2) 03/08/22 18:06 Albumin 2.8 g/dL (3.2-5.5) L 03/08/22 18:06 Globulin 4.3 g/dL (2.1-4.2) H 03/08/22 18:06 Albumin/Globulin Ratio 0.7 (1.0-2.2) L 03/08/22 18:06 Lipase 24 U/L (22-51) 03/08/22 18:06 Nasal Influenza A H3 PCR DETECTED A 03/08/22 18:20 Nasal Influenza B PCR NOT DETECTED 03/08/22 18:20 Nasal RSV (PCR) NOT DETECTED 03/08/22 18:20 Nasal SARS-CoV-2 (PCR) NOT DETECTED 03/08/22 18:20 Sepsis Event Note (H) - Evaluation Current Stage of Sepsis: Ruled out
[2022-03-10] MEDS: MULTIVITAMIN W/MINERALS TABLET PO SCH (16:25)
[2022-03-10] MEDS: IPRATROPIUM/ALBUTEROL 3 ML NEB INH PRN (20:45)
[2022-03-11] MEDS: ACETAMINOPHEN 325 MG TABLET PO PRN (00:14)
[2022-03-11] MEDS: SODIUM CHLORIDE FLUSH 0.9% 10 ML SYRINGE IVP SCH ×3 (03:05→17:13)
[2022-03-11 05:43] LABS: BASOPHILS % (AUTO) 0.3 %; EOSINOPHILS # (AUTO) 0.2 10^3/uL (0.0-0.7); EOSINOPHILS % (AUTO) 1.6 %; HCT - HEMATOCRIT 37.1 % (37.0-47.0); HGB - HEMOGLOBIN 11.1 g/dL (12.0-16.0); LYMPHOCYTES # (AUTO) 2.6 10^3/uL (1.5-3.5); LYMPHOCYTES % (AUTO) 27.9 %; MEAN CORPUSCULAR HEMOGLOBIN 26.4 pg (27.0-31.0); MEAN CORPUSCULAR HGB CONC 29.9 g/dL (32.0-36.0); MEAN CORPUSCULAR VOLUME 88.1 fL (81.0-99.0); MEAN PLATELET VOLUME 9.8 fL (7.9-10.8); MONOCYTES # (AUTO) 0.7 10^3/uL (0.0-1.0); MONOCYTES % (AUTO) 7.8 %; NEUTROPHILS # (AUTO) 5.8 10^3/uL (1.5-6.6); NEUTROPHILS % (AUTO) 61.8 %; PLT - PLATELET COUNT 205 10^3/uL (130-450); RED BLOOD COUNT 4.21 10^6/uL (4.20-5.40); RED CELL DISTRIBUTION WIDTH 14.4 % (12.0-15.0); WHITE BLOOD COUNT 9.4 x10^3/uL (4.8-10.8)
[2022-03-11 05:51] LABS: CALCIUM 8.2 mg/dL (8.5-10.3); CREATININE 1.4 mg/dL (0.4-1.0); MAGNESIUM 1.6 mg/dL (1.7-2.8); POTASSIUM 3.7 mmol/L (3.5-5.0)
[2022-03-11] MEDS: INSULIN LISPRO 300 UNIT/3 ML PEN SUBQ SCH ×4 (08:13→20:55)
[2022-03-11] MEDS: atenoloL 25 MG TABLET PO SCH (08:14)
[2022-03-11] MEDS: guaiFENesin 600 MG TABLET PO SCH ×2 (08:14→21:57)
[2022-03-11] MEDS: MULTIVITAMIN W/MINERALS TABLET PO SCH (08:14)
[2022-03-11] MEDS: ACETAMINOPHEN 500 MG TABLET PO SCH (08:14)
[2022-03-11] MEDS: OSELTAMIVIR 30 MG CAPSULE PO SCH ×2 (08:14→21:57)
[2022-03-11] MEDS: NYSTATIN POWDER 15 GM TOP SCH ×2 (08:15→21:57)
[2022-03-11] MEDS: CHOLECALCIFEROL 25 MCG TABLET PO SCH (11:39)
[2022-03-11] MEDS: BENZONATATE 100 MG CAPSULE PO SCH ×2 (16:28→21:57)
--- NOTE | 2022-03-11 18:04 | PROVIDER PROGRESS NOTE ---
Assessment/Plan - Problem List (1) Acute respiratory failure with hypoxia Assessment/Plan: Cause is likely her Influenza A. 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 Plan: If SBP > 160 mm of hg may consider Hydralazine We stopped iv NS and restarted Lasix (5) Elevated troponin Conclusion/Plan: Ekg was abnormal but no concern for active ischemia with flat troponins (6) Weakness Conclusion/Plan: We learned from her caregiver at her bedside, that she is usually bedbound and then a lift is used to put her in a recliner. She no longer walks or stands or pivots. The caregiver at bedside today, was not happy with how our staff was using the lift for her Plan: Will order OOB to chair via lift at least daily and prn for more frequent lifting. No OT or PT planned (7) Pressure ulcers Conclusion/Plan: RN has documented these in photos. She has a large Stage 1 decubitus ulcer and small R LL pressure ulcer yarn skeins examiner-lateral lower calf, almost at ankle We learned from a FAX, how [facility] was doing dressing changes. I ordered the same to be done here Plan: From info from [facility] doing dressing changes. I ordered the same to be done here We also ordered turning and repositioning to get pressure off the area of buttocks - Current Meds Current Meds: Current Medications Generic Name Dose Route Start Last Admin Trade Name Freq PRN Reason Stop Dose Admin Acetaminophen 500 mg 03/09/22 09:00 03/11/22 08:14 Acetaminophen 500 Mg Tablet PO 500 mg DAILY SHAMIR Administration Acetaminophen 650 mg 03/09/22 00:53 03/11/22 00:14 Acetaminophen 325 Mg Tablet PO 650 mg Q4HR PRN Administration Pain 1 to 4, or Fever Albuterol/Ipratropium 3 ml 03/09/22 01:04 03/10/22 20:45 Ipratropium/Albuterol 3 Ml Neb INH 3 ml Q4HR PRN Administration Wheezing Atenolol 25 mg 03/09/22 09:00 03/11/22 08:14 Atenolol 25 Mg Tablet PO 25 mg DAILY SHAMIR Administration Benzonatate 100 mg 03/11/22 16:05 03/11/22 16:28 Benzonatate 100 Mg Capsule PO 100 mg TID SHAMIR Administration Cholecalciferol 50 mcg 03/11/22 09:00 03/11/22 11:39 Cholecalciferol 25 Mcg Tablet PO 50 mcg DAILY SHAMIR Administration Guaifenesin 1,200 mg 03/09/22 02:00 03/11/22 08:14 Guaifenesin 600 Mg Tablet PO 1,200 mg BID SHAMIR Administration Insulin Human Lispro 1 - 9 unit 03/09/22 12:00 03/11/22 17:09 Insulin Lispro 300 Unit/3 Ml Pen SUBQ Not Given 0800,1200,1700,2100 [facility] Protocol Multi-Ingredient Ointment 1 applic 03/09/22 10:44 03/09/22 14:23 Zinc Oxide 20% Oint 30 Gm Tube TOP 1 applic PRN PRN Administration Skin Care Multivitamins/Minerals 1 tab 03/10/22 17:00 03/11/22 08:14 Multivitamin W/Minerals Tablet PO 1 tab DAILYWM SHAMIR Administration Nystatin 1 applic 03/09/22 12:00 03/11/22 08:15 Nystatin Powder 15 Gm TOP 1 applic BID SHAMIR Administration Oseltamivir Phosphate 30 mg 03/09/22 09:00 03/11/22 08:14 Oseltamivir 30 Mg Capsule PO 30 mg BID SHAMIR Administration Sodium Chloride 10 ml 03/09/22 01:00 03/11/22 17:13 Sodium Chloride Flush 0.9% 10 Ml Syringe IVP 10 ml 0100,0900,1700 [facility] Administration - Lab Result Fish Bone Diagrams: 03/12/22 05:05 03/12/22 05:05 - Additional Planning My Orders: My Active Orders 03/11/22 09:00 Cholecalciferol [Vitamin D3] 50 mcg PO DAILY 03/11/22 13:20 Miscellaenous Nursing Order [RC] DAILY 03/11/22 16:05 Benzonatate [Tessalon] 100 mg PO TID 03/11/22 18:03 Miscellaenous Nursing Order [RC] QSHIFT 03/12/22 05:00 BMP - BASIC METABOLIC PANEL [CHEM] DAILYLAB CBC - COMP BLD CT W/AUTO DIFF [HEME] DAILYLAB 03/13/22 05:00 BMP - BASIC METABOLIC PANEL [CHEM] DAILYLAB CBC - COMP BLD CT W/AUTO DIFF [HEME] DAILYLAB Subjective - Subjective Patient Reports: Cough, Other (Feels "no better", still on O2 per n.c.) Nursing Reports: Pain (When rolled in bed, she screams out in pain (back pain)) Objective Vital Signs: Vital Signs - 24 hr 03/10/22 03/10/22 03/10/22 19:24 20:13 20:45 Temperature 37.0 C Heart Rate 60 Heart Rate [ 69 Brachial] Respiratory 20 20 Rate Blood Pressure 168/53 H [Right Brachial artery] O2 Saturation 93 92 If not protocol 0.5 0.5 0.5 : Oxygen Flow, liters/minute 03/11/22 03/11/22 03/11/22 03:31 07:33 07:50 Temperature 36.9 C 36.8 C Heart Rate Heart Rate [ 63 63 Brachial] Respiratory 12 20 Rate Blood Pressure 146/48 H 151/56 H [Right Brachial artery] O2 Saturation 94 93 89 L If not protocol 1 0.5 : Oxygen Flow, liters/minute 03/11/22 03/11/22 03/11/22 09:42 12:01 14:00 Temperature 36.4 C L Heart Rate Heart Rate [ 72 Brachial] Respiratory 18 Rate Blood Pressure 143/53 H [Right Brachial artery] O2 Saturation 92 93 If not protocol 2 0.5 1 : Oxygen Flow, liters/minute 03/11/22 15:49 Temperature 36.4 C L Heart Rate Heart Rate [ 62 Brachial] Respiratory 24 Rate Blood Pressure 156/51 H [Right Brachial artery] O2 Saturation 94 If not protocol 1 : Oxygen Flow, liters/minute Oxygen O2 Source Nasal cannula Oxygen Flow Rate 2 I&O (Last 24 Hrs): Intake and Output Totals x24h 03/09/22 03/10/22 03/11/22 23:59 23:59 23:59 Intake Total 1936 2740.75 1220 Output Total 700 2900 1100 Balance 1236 -159.25 120 General: Alert, Oriented x3, Other (Appears fatigued) HEENT: Mucous membr. moist/pink, Other (wearing O2 per n.c.) Neck: Supple Neuro: Alert, Non Focal, Other (Is bedbound, per Hx) Cardiovascular: No murmurs (Distant heart sounds) Respiratory: No respiratory distress (wearing O2 per n.c., diminishe breath sounds and poor inspuratory effort) Abdomen: Normal bowel sounds, Soft Rectal: Other (Bandage over sacral decub.) Extremities: Other (Trace ankle edema, bandaged wound of R lat eastman) - Results Results: Laboratory Results WBC 9.4 x10^3/uL (4.8-10.8) 03/11/22 05:27 RBC 4.21 10^6/uL (4.20-5.40) 03/11/22 05:27 Hgb 11.1 g/dL (12.0-16.0) L 03/11/22 05:27 Hct 37.1 % (37.0-47.0) 03/11/22 05:27 MCV 88.1 fL (81.0-99.0) 03/11/22 05:27 MCH 26.4 pg (27.0-31.0) L 03/11/22 05:27 MCHC 29.9 g/dL (32.0-36.0) L 03/11/22 05:27 RDW 14.4 % (12.0-15.0) 03/11/22 05:27 Plt Count 205 10^3/uL (130-450) 03/11/22 05:27 MPV 9.8 fL (7.9-10.8) 03/11/22 05:27 Neut # (Auto) 5.8 10^3/uL (1.5-6.6) 03/11/22 05:27 Lymph # (Auto) 2.6 10^3/uL (1.5-3.5) 03/11/22 05:27 [facility] # (Auto) 0.7 10^3/uL (0.0-1.0) 03/11/22 05:27 Eos # (Auto) 0.2 10^3/uL (0.0-0.7) 03/11/22 05:27 Baso # (Auto) 0.0 10^3/uL (0.0-0.1) 03/11/22 05:27 Absolute Nucleated RBC 0.00 x10^3/uL 03/11/22 05:27 Nucleated RBC % 0.0 /100WBC 03/11/22 05:27 Sodium 140 mmol/L (135-145) 03/11/22 05:27 Potassium 3.7 mmol/L (3.5-5.0) 03/11/22 05:27 Chloride 107 mmol/L (101-111) 03/11/22 05:27 Carbon Dioxide 23 mmol/L (21-32) 03/11/22 05:27 Anion Gap 10.0 (6-13) 03/11/22 05:27 BUN 27 mg/dL (6-20) H 03/11/22 05:27 Creatinine 1.4 mg/dL (0.4-1.0) H 03/11/22 05:27 Estimated GFR (MDRD) 36 (>89) L 03/11/22 05:27 Glucose 116 mg/dL (70-100) H 03/11/22 05:27 Calcium 8.2 mg/dL (8.5-10.3) L 03/11/22 05:27 Magnesium 1.6 mg/dL (1.7-2.8) L 03/11/22 05:27 Total Bilirubin 0.5 mg/dL (0.2-1.0) 03/08/22 18:06 AST 23 IU/L (10-42) 03/08/22 18:06 ALT 11 IU/L (10-60) 03/08/22 18:06 Alkaline Phosphatase 68 IU/L (42-121) 03/08/22 18:06 Troponin I High Sens 37.8 ng/L (2.3-14.8) H* 03/09/22 01:11 B-Natriuretic Peptide 495 pg/mL (5-100) H 03/08/22 18:06 Total Protein 7.1 g/dL (6.7-8.2) 03/08/22 18:06 Albumin 2.8 g/dL (3.2-5.5) L 03/08/22 18:06 Globulin 4.3 g/dL (2.1-4.2) H 03/08/22 18:06 Albumin/Globulin Ratio 0.7 (1.0-2.2) L 03/08/22 18:06 Lipase 24 U/L (22-51) 03/08/22 18:06 Nasal Influenza A H3 PCR DETECTED A 03/08/22 18:20 Nasal Influenza B PCR NOT DETECTED 03/08/22 18:20 Nasal RSV (PCR) NOT DETECTED 03/08/22 18:20 Nasal SARS-CoV-2 (PCR) NOT DETECTED 03/08/22 18:20 Sepsis Event Note (H) - Evaluation Current Stage of Sepsis: Ruled out
[2022-03-12] MEDS: SODIUM CHLORIDE FLUSH 0.9% 10 ML SYRINGE IVP SCH ×3 (02:36→18:08)
[2022-03-12 05:15] LABS: BASOPHILS % (AUTO) 0.2 %; EOSINOPHILS # (AUTO) 0.1 10^3/uL (0.0-0.7); EOSINOPHILS % (AUTO) 0.6 %; HCT - HEMATOCRIT 37.4 % (37.0-47.0); HGB - HEMOGLOBIN 11.4 g/dL (12.0-16.0); LYMPHOCYTES # (AUTO) 2.2 10^3/uL (1.5-3.5); MEAN CORPUSCULAR HEMOGLOBIN 26.9 pg (27.0-31.0); MEAN CORPUSCULAR HGB CONC 30.5 g/dL (32.0-36.0); MEAN CORPUSCULAR VOLUME 88.2 fL (81.0-99.0); MEAN PLATELET VOLUME 10.1 fL (7.9-10.8); MONOCYTES # (AUTO) 0.8 10^3/uL (0.0-1.0); MONOCYTES % (AUTO) 7.5 %; NEUTROPHILS # (AUTO) 7.4 10^3/uL (1.5-6.6); NEUTROPHILS % (AUTO) 69.8 %; PLT - PLATELET COUNT 244 10^3/uL (130-450); RED BLOOD COUNT 4.24 10^6/uL (4.20-5.40); RED CELL DISTRIBUTION WIDTH 14.2 % (12.0-15.0); WHITE BLOOD COUNT 10.6 x10^3/uL (4.8-10.8)
[2022-03-12 05:26] LABS: CALCIUM 8.4 mg/dL (8.5-10.3); CREATININE 1.4 mg/dL (0.4-1.0); POTASSIUM 3.8 mmol/L (3.5-5.0)
[2022-03-12] MEDS: BENZONATATE 100 MG CAPSULE PO SCH ×3 (06:31→22:14)
[2022-03-12] MEDS: INSULIN LISPRO 300 UNIT/3 ML PEN SUBQ SCH ×4 (07:46→22:20)
--- NOTE | 2022-03-12 09:09 | XRAY Report ---
PROCEDURE: Chest 1 View X-Ray INDICATIONS: Fever, persistent cough, F/U PNA TECHNIQUE: One view of the chest was acquired. COMPARISON: Chest x-ray 03/08/2022 FINDINGS: Surgical changes and devices: None. Lungs and pleura: Poor inspiratory effort is present limiting evaluation. However, no consolidations . Mediastinum: Mediastinal contours appear normal. Heart size is normal. Bones and chest wall: No suspicious bony lesions. Overlying soft tissues appear unremarkable. IMPRESSION: Limited exam secondary to poor inspiratory effort as well as obscuration of the apices secondary to h ead positioning. No consolidations. Reviewed by: Yoana Nicolas MD on 03/12/2022 9:07 AM [facility] Approved by: Yoana Nicolas MD on 03/12/2022 9:07 AM [facility] Station ID: [id number]
[2022-03-12] MEDS: IPRATROPIUM/ALBUTEROL 3 ML NEB INH PRN (10:00)
[2022-03-12] MEDS: atenoloL 25 MG TABLET PO SCH (10:54)
[2022-03-12] MEDS: ACETAMINOPHEN 500 MG TABLET PO SCH (10:54)
[2022-03-12] MEDS: guaiFENesin 600 MG TABLET PO SCH ×2 (10:54→22:11)
[2022-03-12] MEDS: CHOLECALCIFEROL 25 MCG TABLET PO SCH (10:55)
[2022-03-12] MEDS: NYSTATIN POWDER 15 GM TOP SCH ×2 (10:55→22:18)
[2022-03-12] MEDS: OSELTAMIVIR 30 MG CAPSULE PO SCH ×2 (11:21→22:18)
[2022-03-12] MEDS: MULTIVITAMIN W/MINERALS TABLET PO SCH (11:21)
--- NOTE | 2022-03-12 18:55 | PROVIDER PROGRESS NOTE ---
Assessment/Plan - Problem List (1) Acute respiratory failure with hypoxia Assessment/Plan: Cause is likely her Influenza A. He O2 was 3L>> now 1L/min via n.c. A CXR was repeated and shows slt improvement Plan: Supportive care of sx, suppl O2, duonebs, cough syrup, IS ordered (2) Influenza A Conclusion/Plan: Plan: Droplet isolation Tamiflu dose adjusted as per renal function if creatinine improves would increase the dose (3) DM2 (diabetes mellitus, type 2) Conclusion/Plan: Stable A1c at 6.7 Plan: She is on a diabetic diet, and hypoglycemia protocol, fingerstick checks and SS coverage Qualifiers: Diabetes mellitus western philosophy professor insulin use: without western philosophy professor use Diabetes mellitus complication status: without complication Qualified Code(s): E11.9 - Type 2 diabetes mellitus without complications (4) HTN (hypertension) Conclusion/Plan: Stable on Atenolol and was on Lasix. Plan: If SBP > 160 mm of hg may consider Hydralazine We stopped iv NS and restarted Lasix (5) Elevated troponin Conclusion/Plan: Ekg was abnormal but no concern for active ischemia with flat troponins (6) Bed bound Conclusion/Plan: As per Hx. Her caregiver lives with her for the past 4-5 years, and stays in this hospital room with her. (7) Weakness Conclusion/Plan: We learned from her caregiver at her bedside, that she is usually bedbound and then a lift is used to put her in a recliner. She no longer walks or stands or pivots. The caregiver at bedside was not happy with how our staff was using the lift for her Plan: Will order OOB to chair via lift at least daily and prn for more frequent l ifting. No OT or PT planned (8) Pressure ulcers Conclusion/Plan: RN has documented these in photos. 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 I ordered the same to be done here Plan: From info from [facility] doing dressing changes. I ordered the same to be done here We also ordered turning and repositioning to get pressure off the area of buttocks - Current Meds Current Meds: Current Medications Generic Name Dose Route Start Last Admin Trade Name Freq PRN Reason Stop Dose Admin Acetaminophen 500 mg 03/09/22 09:00 03/12/22 10:54 Acetaminophen 500 Mg Tablet PO 500 mg DAILY SHAMIR Administration Acetaminophen 650 mg 03/09/22 00:53 03/11/22 00:14 Acetaminophen 325 Mg Tablet PO 650 mg Q4HR PRN Administration Pain 1 to 4, or Fever Albuterol/Ipratropium 3 ml 03/09/22 01:04 03/12/22 10:00 Ipratropium/Albuterol 3 Ml Neb INH 3 ml Q4HR PRN Administration Wheezing Atenolol 25 mg 03/09/22 09:00 03/12/22 10:54 Atenolol 25 Mg Tablet PO 25 mg DAILY SHAMIR Administration Benzonatate 100 mg 03/11/22 16:05 03/12/22 13:26 Benzonatate 100 Mg Capsule PO 100 mg TID SHAMIR Administration Cholecalciferol 50 mcg 03/11/22 09:00 03/12/22 10:55 Cholecalciferol 25 Mcg Tablet PO 50 mcg DAILY SHAMIR Administration Guaifenesin 1,200 mg 03/09/22 02:00 03/12/22 10:54 Guaifenesin 600 Mg Tablet PO 1,200 mg BID SHAMIR Administration Insulin Human Lispro 1 - 9 unit 03/09/22 12:00 03/12/22 18:07 Insulin Lispro 300 Unit/3 Ml Pen SUBQ 1 unit 0800,1200,1700,2100 [facility] Administration Protocol Multi-Ingredient Ointment 1 applic 03/09/22 10:44 03/09/22 14:23 Zinc Oxide 20% Oint 30 Gm Tube TOP 1 applic PRN PRN Administration Skin Care Multivitamins/Minerals 1 tab 03/10/22 17:00 03/12/22 11:21 Multivitamin W/Minerals Tablet PO 1 tab DAILYWM SHAMIR Administration Nystatin 1 applic 03/09/22 12:00 03/12/22 10:55 Nystatin Powder 15 Gm TOP 1 applic BID SHAMIR Administration Oseltamivir Phosphate 30 mg 03/09/22 09:00 03/12/22 11:21 Oseltamivir 30 Mg Capsule PO 30 mg BID SHAMIR Administration Sodium Chloride 10 ml 03/09/22 01:00 03/12/22 18:08 Sodium Chloride Flush 0.9% 10 Ml Syringe IVP 10 ml 0100,0900,1700 [facility] Administration - Lab Result Fish Bone Diagrams: 03/13/22 05:30 03/13/22 05:30 - Additional Planning My Orders: My Active Orders 03/11/22 18:03 Miscellaenous Nursing Order [RC] QSHIFT 03/12/22 08:26 Miscellaenous Nursing Order [RC] QSHIFT 03/12/22 16:40 Miscellaenous Nursing Order [RC] QSHIFT 03/13/22 05:00 BMP - BASIC METABOLIC PANEL [CHEM] DAILYLAB CBC - COMP BLD CT W/AUTO DIFF [HEME] DAILYLAB Subjective - Subjective Patient Reports: Resting Comfortably, Fatigue (Feels tired) Nursing Reports: Other (Still has a cough, cannot bring up the spt) Objective Vital Signs: Vital Signs - 24 hr 03/11/22 03/12/22 03/12/22 22:50 05:55 07:40 Temperature 37.2 C 37.8 C Heart Rate Heart Rate [ 74 78 Brachial] Respiratory 12 16 Rate Blood Pressure 148/58 H 165/58 H [Right Brachial artery] O2 Saturation 89 L 91 L If not protocol 1 1 1 : Oxygen Flow, liters/minute 03/12/22 03/12/22 09:56 17:45 Temperature 37.2 C Heart Rate 90 Heart Rate [ 70 Brachial] Respiratory 22 16 Rate Blood Pressure 150/59 H [Right Brachial artery] O2 Saturation 91 L If not protocol 1 2 : Oxygen Flow, liters/minute Oxygen O2 Source Nasal cannula Oxygen Flow Rate 2 I&O (Last 24 Hrs): Intake and Output Totals x24h 03/10/22 03/11/22 03/12/22 23:59 23:59 23:59 Intake Total 2740.75 1970 720 Output Total 2900 1350 1100 Balance -159.25 620 -380 General: Alert, Other (Appears tired) HEENT: Mucous membr. moist/pink Neck: Supple Neuro: Alert, Oriented Times 3, Other (Nonfocal but has generalized weakness, is bedbound) Cardiovascular: Regular rate, No murmurs Respiratory: Rales (R base) Abdomen: Normal bowel sounds, Soft Extremities: Other (1+ edema to mid shins) - Results Results: Laboratory Results WBC 10.6 x10^3/uL (4.8-10.8) 03/12/22 05:05 RBC 4.24 10^6/uL (4.20-5.40) 03/12/22 05:05 Hgb 11.4 g/dL (12.0-16.0) L 03/12/22 05:05 Hct 37.4 % (37.0-47.0) 03/12/22 05:05 MCV 88.2 fL (81.0-99.0) 03/12/22 05:05 MCH 26.9 pg (27.0-31.0) L 03/12/22 05:05 MCHC 30.5 g/dL (32.0-36.0) L 03/12/22 05:05 RDW 14.2 % (12.0-15.0) 03/12/22 05:05 Plt Count 244 10^3/uL (130-450) 03/12/22 05:05 MPV 10.1 fL (7.9-10.8) 03/12/22 05:05 Neut # (Auto) 7.4 10^3/uL (1.5-6.6) H 03/12/22 05:05 Lymph # (Auto) 2.2 10^3/uL (1.5-3.5) 03/12/22 05:05 Barry # (Auto) 0.8 10^3/uL (0.0-1.0) 03/12/22 05:05 Eos # (Auto) 0.1 10^3/uL (0.0-0.7) 03/12/22 05:05 Baso # (Auto) 0.0 10^3/uL (0.0-0.1) 03/12/22 05:05 Absolute Nucleated RBC 0.00 x10^3/uL 03/12/22 05:05 Nucleated RBC % 0.0 /100WBC 03/12/22 05:05 Sodium 139 mmol/L (135-145) 03/12/22 05:05 Potassium 3.8 mmol/L (3.5-5.0) 03/12/22 05:05 Chloride 106 mmol/L (101-111) 03/12/22 05:05 Carbon Dioxide 22 mmol/L (21-32) 03/12/22 05:05 Anion Gap 11.0 (6-13) 03/12/22 05:05 BUN 27 mg/dL (6-20) H 03/12/22 05:05 Creatinine 1.4 mg/dL (0.4-1.0) H 03/12/22 05:05 Estimated GFR (MDRD) 36 (>89) L 03/12/22 05:05 Glucose 147 mg/dL (70-100) H 03/12/22 05:05 Calcium 8.4 mg/dL (8.5-10.3) L 03/12/22 05:05 Magnesium 1.6 mg/dL (1.7-2.8) L 03/11/22 05:27 Total Bilirubin 0.5 mg/dL (0.2-1.0) 03/08/22 18:06 AST 23 IU/L (10-42) 03/08/22 18:06 ALT 11 IU/L (10-60) 03/08/22 18:06 Alkaline Phosphatase 68 IU/L (42-121) 03/08/22 18:06 Troponin I High Sens 37.8 ng/L (2.3-14.8) H* 03/09/22 01:11 B-Natriuretic Peptide 495 pg/mL (5-100) H 03/08/22 18:06 Total Protein 7.1 g/dL (6.7-8.2) 03/08/22 18:06 Albumin 2.8 g/dL (3.2-5.5) L 03/08/22 18:06 Globulin 4.3 g/dL (2.1-4.2) H 03/08/22 18:06 Albumin/Globulin Ratio 0.7 (1.0-2.2) L 03/08/22 18:06 Lipase 24 U/L (22-51) 03/08/22 18:06 Nasal Influenza A H3 PCR DETECTED A 03/08/22 18:20 Nasal Influenza B PCR NOT DETECTED 03/08/22 18:20 Nasal RSV (PCR) NOT DETECTED 03/08/22 18:20 Nasal SARS-CoV-2 (PCR) NOT DETECTED 03/08/22 18:20 Sepsis Event Note (H) - Evaluation Current Stage of Sepsis: Ruled out
[2022-03-13] MEDS: SODIUM CHLORIDE FLUSH 0.9% 10 ML SYRINGE IVP SCH ×3 (02:11→17:39)
[2022-03-13] MEDS: BENZONATATE 100 MG CAPSULE PO SCH ×3 (05:41→21:41)
[2022-03-13 06:10] LABS: BASOPHILS # (AUTO) 0.1 10^3/uL (0.0-0.1); BASOPHILS % (AUTO) 0.5 %; EOSINOPHILS % (AUTO) 0.4 %; HCT - HEMATOCRIT 36.9 % (37.0-47.0); HGB - HEMOGLOBIN 11.3 g/dL (12.0-16.0); LYMPHOCYTES # (AUTO) 2.3 10^3/uL (1.5-3.5); LYMPHOCYTES % (AUTO) 22.5 %; MEAN CORPUSCULAR HEMOGLOBIN 26.6 pg (27.0-31.0); MEAN CORPUSCULAR HGB CONC 30.6 g/dL (32.0-36.0); MEAN CORPUSCULAR VOLUME 86.8 fL (81.0-99.0); MEAN PLATELET VOLUME 10.4 fL (7.9-10.8); MONOCYTES # (AUTO) 0.9 10^3/uL (0.0-1.0); MONOCYTES % (AUTO) 8.6 %; NEUTROPHILS # (AUTO) 6.8 10^3/uL (1.5-6.6); NEUTROPHILS % (AUTO) 66.3 %; PLT - PLATELET COUNT 268 10^3/uL (130-450); RED BLOOD COUNT 4.25 10^6/uL (4.20-5.40); RED CELL DISTRIBUTION WIDTH 14.2 % (12.0-15.0); WHITE BLOOD COUNT 10.3 x10^3/uL (4.8-10.8)
[2022-03-13 06:20] LABS: CALCIUM 8.4 mg/dL (8.5-10.3); CREATININE 1.5 mg/dL (0.4-1.0); POTASSIUM 3.6 mmol/L (3.5-5.0)
[2022-03-13] MEDS: INSULIN LISPRO 300 UNIT/3 ML PEN SUBQ SCH ×4 (09:01→21:40)
[2022-03-13] MEDS: MULTIVITAMIN W/MINERALS TABLET PO SCH (09:02)
[2022-03-13] MEDS: atenoloL 25 MG TABLET PO SCH (09:03)
[2022-03-13] MEDS: OSELTAMIVIR 30 MG CAPSULE PO SCH ×2 (09:03→21:41)
[2022-03-13] MEDS: guaiFENesin 600 MG TABLET PO SCH ×2 (09:03→21:40)
[2022-03-13] MEDS: CHOLECALCIFEROL 25 MCG TABLET PO SCH (09:03)
[2022-03-13] MEDS: NYSTATIN POWDER 15 GM TOP SCH ×2 (09:04→21:41)
[2022-03-13] MEDS: ACETAMINOPHEN 500 MG TABLET PO SCH (09:12)
--- NOTE | 2022-03-13 11:00 | XRAY Report ---
PROCEDURE: Chest 1 View X-Ray INDICATIONS: F/U PNA vs CHF TECHNIQUE: One view of the chest was acquired. COMPARISON: 03/12/2022 and 03/08/2022. FINDINGS: Surgical changes and devices: None. Lungs and pleura: No pleural effusions or pneumothorax. Lungs are clear. Mediastinum: Mediastinal contours appear normal. Heart size is mildly enlarged. Bones and chest wall: No suspicious bony lesions. Overlying soft tissues appear unremarkable. IMPRESSION: Interval improvement in bilateral lung aeration. No focal infiltrate, pleural effusion or pneumothora x is seen. Reviewed by: Yony Carmona MD on 03/13/2022 10:58 AM [facility] Approved by: Yony Carmona MD on 03/13/2022 10:58 AM PST Station ID: [id number]
[2022-03-13] MEDS: polyethylene glycoL 3350 17 GM PACKET PO SCH (12:09)
[2022-03-13] MEDS: ZINC OXIDE 20% OINT 30 GM TUBE TOP PRN (13:51)
--- NOTE | 2022-03-13 14:59 | PROVIDER PROGRESS NOTE ---
Assessment/Plan - Problem List (1) Acute respiratory failure with hypoxia Assessment/Plan: Cause is likely her Influenza A. Her suppl O2 is between 1 and 3 L/min. Her cough is looser. Her exam has louder Rales R base A CXR was repeated and shows slt improvement, nothing worse. Therefore I suspect she has marked atelectasis. Plan: Supportive care of sx, suppl O2, duonebs, cough syrup, IS ordered but will order to be upright and OOB and to get chest PT bid (2) Influenza A Conclusion/Plan: Plan: Droplet isolation Tamiflu dose adjusted as per renal function if creatinine improves would increase the dose (3) DM2 (diabetes mellitus, type 2) Conclusion/Plan: Stable A1c at 6.7 Plan: She is on a diabetic diet, and hypoglycemia protocol, fingerstick checks and SS coverage Qualifiers: Diabetes mellitus termite helper insulin use: without custodial use Diabetes mellitus complication status: without complication Qualified Code(s): E11.9 - Type 2 diabetes mellitus without complications (4) HTN (hypertension) Conclusion/Plan: Stable on Atenolol and was on Lasix. Plan: If SBP > 160 mm of hg may consider Hydralazine We stopped iv NS and restarted Lasix (5) Elevated troponin Conclusion/Plan: Ekg was abnormal but no concern for active ischemia with flat troponins (6) Bed bound Conclusion/Plan: As per Hx. Her caregiver lives with her for the past 4-5 years, and stays in this hospital room with her. (7) Weakness Conclusion/Plan: We learned from her caregiver at her bedside, that she is usually bedbound and then a lift is used to put her in a recliner. She no longer walks or stands or pivots. The caregiver at bedside was not happy with how our staff was using the lift for her Plan: Will order OOB to chair via lift at least daily and prn for more frequent lifting. No OT or PT planned (8) Pressure ulcers Conclusion/Plan: RN has documented these in photos. 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 I ordered the same to be done here Plan: From info from [facility] doing dressing changes. I ordered the same to be done here We also ordered turning and repositioning to get pressure off the area of buttocks - Current Meds Current Meds: Current Medications Generic Name Dose Route Start Last Admin Trade Name Jennifer PRN Reason Stop Dose Admin Acetaminophen 500 mg 03/09/22 09:00 03/13/22 09:12 Acetaminophen 500 Mg Tablet PO 500 mg DAILY SHAMIR Administration Acetaminophen 650 mg 03/09/22 00:53 03/11/22 00:14 Acetaminophen 325 Mg Tablet PO 650 mg Q4HR PRN Administration Pain 1 to 4, or Fever Albuterol/Ipratropium 3 ml 03/09/22 01:04 03/12/22 10:00 Ipratropium/Albuterol 3 Ml Neb INH 3 ml Q4HR PRN Administration Wheezing Atenolol 25 mg 03/09/22 09:00 03/13/22 09:03 Atenolol 25 Mg Tablet PO 25 mg DAILY SHAMIR Administration Benzonatate 100 mg 03/11/22 16:05 03/13/22 13:45 Benzonatate 100 Mg Capsule PO 100 mg TID SHAMIR Administration Cholecalciferol 50 mcg 03/11/22 09:00 03/13/22 09:03 Cholecalciferol 25 Mcg Tablet PO 50 mcg DAILY SHAMIR Administration Guaifenesin 1,200 mg 03/09/22 02:00 03/13/22 09:03 Guaifenesin 600 Mg Tablet PO 1,200 mg BID SHAMIR Administration Insulin Human Lispro 1 - 9 unit 03/09/22 12:00 03/13/22 12:09 Insulin Lispro 300 Unit/3 Ml Pen SUBQ 3 unit 0800,1200,1700,2100 SHAMIR Administration Protocol Multi-Ingredient Ointment 1 applic 03/09/22 10:44 03/13/22 13:51 Zinc Oxide 20% Oint 30 Gm Tube TOP 1 applic PRN PRN Administration Skin Care Multivitamins/Minerals 1 tab 03/10/22 17:00 03/13/22 09:02 Multivitamin W/Minerals Tablet PO 1 tab DAILYWM SHAMIR Administration Nystatin 1 applic 03/09/22 12:00 03/13/22 09:04 Nystatin Powder 15 Gm TOP 1 applic BID SHAMIR Administration Oseltamivir Phosphate 30 mg 03/09/22 09:00 03/13/22 09:03 Oseltamivir 30 Mg Capsule PO 30 mg BID SHAMIR Administration Polyethylene Glycol 17 gm 03/13/22 12:00 03/13/22 12:09 Polyethylene Glycol 3350 17 Gm Packet PO 17 gm DAILY SHAMIR Administration Sodium Chloride 10 ml 03/09/22 01:00 03/13/22 09:04 Sodium Chloride Flush 0.9% 10 Ml Syringe IVP 10 ml 0100,0900,1700 SHAMIR Administration - Lab Result Fish Bone Diagrams: 03/13/22 05:30 03/13/22 05:30 - Additional Planning My Orders: My Active Orders 03/12/22 16:40 Miscellaenous Nursing Order [RC] QSHIFT 03/13/22 08:33 Miscellaenous Nursing Order [RC] QSHIFT 03/13/22 10:35 Chest [CPT - Chest Physical Therapy] [RC] .bid 03/13/22 12:00 polyethylene glycoL 3350 [Miralax] 17 gm PO DAILY 03/13/22 Dinner Carb-controlled Diet [DIET] Subjective - Subjective Patient Reports: No Complaints, Other (Still needs O2 and still has a slt cough, per her RN) Objective Vital Signs: Vital Signs - 24 hr 03/12/22 03/12/22 03/13/22 17:45 22:50 02:13 Temperature 37.2 C 37.2 C Heart Rate [ 70 73 Brachial] Respiratory 16 22 Rate Blood Pressure 150/59 H 147/59 H [Right Brachial artery] O2 Saturation 91 L 91 L If not protocol 2 2 2 : Oxygen Flow, liters/minute 03/13/22 08:30 Temperature 37.1 C Heart Rate [ 74 Brachial] Respiratory 16 Rate Blood Pressure 165/59 H [Right Brachial artery] O2 Saturation 93 If not protocol 2 : Oxygen Flow, liters/minute Oxygen O2 Source Nasal cannula Oxygen Flow Rate 2 I&O (Last 24 Hrs): Intake and Output Totals x24h 03/11/22 03/12/22 03/13/22 23:59 23:59 23:59 Intake Total 1970 1120 370 Output Total 1350 1100 100 Balance 620 20 270 General: Alert HEENT: Mucous membr. moist/pink, Other (wearing O2 per n.c.) Neck: Supple Neuro: Alert, Non Focal, Other (Generalized weakness and usually bedbound) Cardiovascular: Regular rate, No murmurs Respiratory: Rales (R base) Abdomen: Soft, No tenderness Extremities: No clubbing, Other (Trace pedal edema) - Results Results: Laboratory Results WBC 10.3 x10^3/uL (4.8-10.8) 03/13/22 05:30 RBC 4.25 10^6/uL (4.20-5.40) 03/13/22 05:30 Hgb 11.3 g/dL (12.0-16.0) L 03/13/22 05:30 Hct 36.9 % (37.0-47.0) L 03/13/22 05:30 MCV 86.8 fL (81.0-99.0) 03/13/22 05:30 MCH 26.6 pg (27.0-31.0) L 03/13/22 05:30 MCHC 30.6 g/dL (32.0-36.0) L 03/13/22 05:30 RDW 14.2 % (12.0-15.0) 03/13/22 05:30 Plt Count 268 10^3/uL (130-450) 03/13/22 05:30 MPV 10.4 fL (7.9-10.8) 03/13/22 05:30 Neut # (Auto) 6.8 10^3/uL (1.5-6.6) H 03/13/22 05:30 Lymph # (Auto) 2.3 10^3/uL (1.5-3.5) 03/13/22 05:30 [place] # (Auto) 0.9 10^3/uL (0.0-1.0) 03/13/22 05:30 Eos # (Auto) 0.0 10^3/uL (0.0-0.7) 03/13/22 05:30 Baso # (Auto) 0.1 10^3/uL (0.0-0.1) 03/13/22 05:30 Absolute Nucleated RBC 0.00 x10^3/uL 03/13/22 05:30 Nucleated RBC % 0.0 /100WBC 03/13/22 05:30 Sodium 141 mmol/L (135-145) 03/13/22 05:30 Potassium 3.6 mmol/L (3.5-5.0) 03/13/22 05:30 Chloride 107 mmol/L (101-111) 03/13/22 05:30 Carbon Dioxide 24 mmol/L (21-32) 03/13/22 05:30 Anion Gap 10.0 (6-13) 03/13/22 05:30 BUN 31 mg/dL (6-20) H 03/13/22 05:30 Creatinine 1.5 mg/dL (0.4-1.0) H 03/13/22 05:30 Estimated GFR (MDRD) 33 (>89) L 03/13/22 05:30 Glucose 136 mg/dL (70-100) H 03/13/22 05:30 Calcium 8.4 mg/dL (8.5-10.3) L 03/13/22 05:30 Magnesium 1.8 mg/dL (1.7-2.8) 03/13/22 05:30 Total Bilirubin 0.5 mg/dL (0.2-1.0) 03/08/22 18:06 AST 23 IU/L (10-42) 03/08/22 18:06 ALT 11 IU/L (10-60) 03/08/22 18:06 Alkaline Phosphatase 68 IU/L (42-121) 03/08/22 18:06 Troponin I High Sens 37.8 ng/L (2.3-14.8) H* 03/09/22 01:11 B-Natriuretic Peptide 495 pg/mL (5-100) H 03/08/22 18:06 Total Protein 7.1 g/dL (6.7-8.2) 03/08/22 18:06 Albumin 2.8 g/dL (3.2-5.5) L 03/08/22 18:06 Globulin 4.3 g/dL (2.1-4.2) H 03/08/22 18:06 Albumin/Globulin Ratio 0.7 (1.0-2.2) L 03/08/22 18:06 Lipase 24 U/L (22-51) 03/08/22 18:06 Nasal Influenza A H3 PCR DETECTED A 03/08/22 18:20 Nasal Influenza B PCR NOT DETECTED 03/08/22 18:20 Nasal RSV (PCR) NOT DETECTED 03/08/22 18:20 Nasal SARS-CoV-2 (PCR) NOT DETECTED 03/08/22 18:20 Sepsis Event Note (H) - Evaluation Current Stage of Sepsis: Ruled out
[2022-03-13] MEDS: ACETAMINOPHEN 325 MG TABLET PO PRN (21:41)
[2022-03-14] MEDS: SODIUM CHLORIDE FLUSH 0.9% 10 ML SYRINGE IVP SCH ×3 (01:47→16:07)
[2022-03-14] MEDS: BENZONATATE 100 MG CAPSULE PO SCH ×3 (05:41→21:19)
[2022-03-14] MEDS: ACETAMINOPHEN 325 MG TABLET PO PRN ×2 (05:50→16:06)
[2022-03-14] MEDS: INSULIN LISPRO 300 UNIT/3 ML PEN SUBQ SCH ×4 (08:52→21:19)
[2022-03-14] MEDS: polyethylene glycoL 3350 17 GM PACKET PO SCH (08:53)
[2022-03-14] MEDS: CHOLECALCIFEROL 25 MCG TABLET PO SCH (08:53)
[2022-03-14] MEDS: guaiFENesin 600 MG TABLET PO SCH ×2 (08:53→21:19)
[2022-03-14] MEDS: OSELTAMIVIR 30 MG CAPSULE PO SCH ×2 (08:53→21:19)
[2022-03-14] MEDS: MULTIVITAMIN W/MINERALS TABLET PO SCH (08:53)
[2022-03-14] MEDS: atenoloL 25 MG TABLET PO SCH (08:53)
[2022-03-14] MEDS: NYSTATIN POWDER 15 GM TOP SCH ×2 (08:54→21:19)
[2022-03-14] MEDS: ACETAMINOPHEN 500 MG TABLET PO SCH (10:00)
--- NOTE | 2022-03-14 15:44 | PROVIDER PROGRESS NOTE ---
Assessment/Plan - Problem List (1) Acute respiratory failure with hypoxia Assessment/Plan: We thought the cause is likely her Influenza A. But today, with access to listen to her lungs posteriorly, she has velcro rales heard at both bases. Her suppl O2 needs vary between 1 and 3 L/min. Several CXRs repeated show slt improvement, nothing worse. Therefore we suspected she has marked atelectasis, because she is so weak, cannot elevated the Incentive Spirometer above 500 cc (per caregiver in room). Her BNP was elevated at 495 on 03/08 at admission. Her last Echo was done in 2018, showed LVEF of 50%. Plan: Cont suppl O2, duonebs, cough syrup, IS ordered Will check another BNP. Will obtain an Echo (but today is Sat and we have no Echo service until ) Will start empiric Lasix in a.m. (since I am examining her at 1800) (2) Influenza A Conclusion/Plan: Plan: Droplet isolation Tamiflu dose adjusted as per renal function if creatinine improves would increase the dose (3) DM2 (diabetes mellitus, type 2) Conclusion/Plan: Stable A1c at 6.7 Plan: She is on a diabetic diet, and hypoglycemia protocol, fingerstick checks and SS coverage Qualifiers: Diabetes mellitus continuous churn buttermaker insulin use: without continuous churn buttermaker use Diabetes mellitus complication status: without complication Qualified Code(s): E11.9 - Type 2 diabetes mellitus without complications (4) HTN (hypertension) Conclusion/Plan: Stable on Atenolol and was on Lasix. Plan: If SBP > 160 mm of hg may consider Hydralazine We stopped iv NS and restarted Lasix (5) Elevated troponin Conclusion/Plan: Ekg was abnormal but there had been no concern for active ischemia with flat troponins (6) Bed bound Conclusion/Plan: As per Hx. Her caregiver lives with her for the past 4-5 years, and stays in this hospital room with her here. (7) Weakness Conclusion/Plan: We learned from her caregiver at her bedside, that she is usually bedbound and then a lift is used to put her in a recliner. She no longer walks or stands or pivots. The caregiver at bedside was not happy with how our staff was using the lift for her Plan: Will order OOB to chair via lift at least daily and prn for more frequent lifting to be in a chair. No OT or PT planned (8) Pressure ulcers Conclusion/Plan: RN has documented these in photos. 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 I ordered the same to be done here Plan: From info from [facility] doing dressing changes. I ordered the same to be done here We also ordered turning and repositioning to get pressure off the area of buttocks - Current Meds Current Meds: Current Medications Generic Name Dose Route Start Last Admin Trade Name Freq PRN Reason Stop Dose Admin Acetaminophen 500 mg 03/09/22 09:00 03/14/22 10:00 Acetaminophen 500 Mg Tablet PO 500 mg DAILY SHAMIR Administration Acetaminophen 650 mg 03/09/22 00:53 03/14/22 05:50 Acetaminophen 325 Mg Tablet PO 650 mg Q4HR PRN Administration Pain 1 to 4, or Fever Albuterol/Ipratropium 3 ml 03/09/22 01:04 03/12/22 10:00 Ipratropium/Albuterol 3 Ml Neb INH 3 ml Q4HR PRN Administration Wheezing Atenolol 25 mg 03/09/22 09:00 03/14/22 08:53 Atenolol 25 Mg Tablet PO 25 mg DAILY SHAMIR Administration Benzonatate 100 mg 03/11/22 16:05 03/14/22 14:21 Benzonatate 100 Mg Capsule PO 100 mg TID SHAMIR Administration Cholecalciferol 50 mcg 03/11/22 09:00 03/14/22 08:53 Cholecalciferol 25 Mcg Tablet PO 50 mcg DAILY SHAMIR Administration Guaifenesin 1,200 mg 03/09/22 02:00 03/14/22 08:53 Guaifenesin 600 Mg Tablet PO 1,200 mg BID SHAMIR Administration Insulin Human Lispro 1 - 9 unit 03/09/22 12:00 03/14/22 11:27 Insulin Lispro 300 Unit/3 Ml Pen SUBQ 1 unit 0800,1200,1700,2100 SHAMIR Administration Protocol Multi-Ingredient Ointment 1 applic 03/09/22 10:44 03/13/22 13:51 Zinc Oxide 20% Oint 30 Gm Tube TOP 1 applic PRN PRN Administration Skin Care Multivitamins/Minerals 1 tab 03/10/22 17:00 03/14/22 08:53 Multivitamin W/Minerals Tablet PO 1 tab DAILYWM SHAMIR Administration Nystatin 1 applic 03/09/22 12:00 03/14/22 08:54 Nystatin Powder 15 Gm TOP 1 applic BID SHAMIR Administration Oseltamivir Phosphate 30 mg 03/09/22 09:00 03/14/22 08:53 Oseltamivir 30 Mg Capsule PO 30 mg BID SHAMIR Administration Polyethylene Glycol 17 gm 03/13/22 12:00 03/14/22 08:53 Polyethylene Glycol 3350 17 Gm Packet PO 17 gm DAILY SHAMIR Administration Sodium Chloride 10 ml 03/09/22 01:00 03/14/22 08:54 Sodium Chloride Flush 0.9% 10 Ml Syringe IVP 10 ml 0100,0900,1700 SHAMIR Administration - Lab Result Fish Bone Diagrams: 03/13/22 05:30 03/13/22 05:30 - Additional Planning My Orders: My Active Orders 03/13/22 Dinner Carb-controlled Diet [DIET] Subjective - Subjective Patient Reports: Resting Comfortably (Patient did sit up in a recliner chair for about 4 hours today, was put there via a lift.) Objective Vital Signs: Vital Signs - 24 hr 03/13/22 03/13/22 03/14/22 15:50 19:30 01:48 Temperature 36.7 C 36.4 C L Heart Rate [ 68 58 L Brachial] Respiratory 20 18 Rate Blood Pressure 135/83 H 133/49 H [Right Brachial artery] O2 Saturation 94 93 If not protocol 2 4 2 : Oxygen Flow, liters/minute 03/14/22 03/14/22 07:39 08:18 Temperature 36.8 C Heart Rate [ 58 L Brachial] Respiratory 22 Rate Blood Pressure 130/48 L [Right Brachial artery] O2 Saturation 92 If not protocol 2 2 : Oxygen Flow, liters/minute Oxygen O2 Source Nasal cannula Oxygen Flow Rate 2 I&O (Last 24 Hrs): Intake and Output Totals x24h 03/12/22 03/13/22 03/14/22 23:59 23:59 23:59 Intake Total 1120 1020 550 Output Total 1100 300 550 Balance 20 720 0 General: Alert, Other (Has severe kyphosis when is up in chair) HEENT: Mucous membr. moist/pink, Other (wearing O2 per n.c.) Neck: Supple, Other (Cannot visualize ant neck due to severe kyphosis) Neuro: Alert, Non Focal, Other (generalized weakness (is usually bedbound)) Cardiovascular: Regular rate Respiratory: Rales (bilat bases) Abdomen: Soft Extremities: Other (Trace pedal edema) - Results Results: Laboratory Results WBC 10.3 x10^3/uL (4.8-10.8) 03/13/22 05:30 RBC 4.25 10^6/uL (4.20-5.40) 03/13/22 05:30 Hgb 11.3 g/dL (12.0-16.0) L 03/13/22 05:30 Hct 36.9 % (37.0-47.0) L 03/13/22 05:30 MCV 86.8 fL (81.0-99.0) 03/13/22 05:30 MCH 26.6 pg (27.0-31.0) L 03/13/22 05:30 MCHC 30.6 g/dL (32.0-36.0) L 03/13/22 05:30 RDW 14.2 % (12.0-15.0) 03/13/22 05:30 Plt Count 268 10^3/uL (130-450) 03/13/22 05:30 MPV 10.4 fL (7.9-10.8) 03/13/22 05:30 Neut # (Auto) 6.8 10^3/uL (1.5-6.6) H 03/13/22 05:30 Lymph # (Auto) 2.3 10^3/uL (1.5-3.5) 03/13/22 05:30 [place] # (Auto) 0.9 10^3/uL (0.0-1.0) 03/13/22 05:30 Eos # (Auto) 0.0 10^3/uL (0.0-0.7) 03/13/22 05:30 Baso # (Auto) 0.1 10^3/uL (0.0-0.1) 03/13/22 05:30 Absolute Nucleated RBC 0.00 x10^3/uL 03/13/22 05:30 Nucleated RBC % 0.0 /100WBC 03/13/22 05:30 Sodium 141 mmol/L (135-145) 03/13/22 05:30 Potassium 3.6 mmol/L (3.5-5.0) 03/13/22 05:30 Chloride 107 mmol/L (101-111) 03/13/22 05:30 Carbon Dioxide 24 mmol/L (21-32) 03/13/22 05:30 Anion Gap 10.0 (6-13) 03/13/22 05:30 BUN 31 mg/dL (6-20) H 03/13/22 05:30 Creatinine 1.5 mg/dL (0.4-1.0) H 03/13/22 05:30 Estimated GFR (MDRD) 33 (>89) L 03/13/22 05:30 Glucose 136 mg/dL (70-100) H 03/13/22 05:30 Calcium 8.4 mg/dL (8.5-10.3) L 03/13/22 05:30 Magnesium 1.8 mg/dL (1.7-2.8) 03/13/22 05:30 Total Bilirubin 0.5 mg/dL (0.2-1.0) 03/08/22 18:06 AST 23 IU/L (10-42) 03/08/22 18:06 ALT 11 IU/L (10-60) 03/08/22 18:06 Alkaline Phosphatase 68 IU/L (42-121) 03/08/22 18:06 Troponin I High Sens 37.8 ng/L (2.3-14.8) H* 03/09/22 01:11 B-Natriuretic Peptide 495 pg/mL (5-100) H 03/08/22 18:06 Total Protein 7.1 g/dL (6.7-8.2) 03/08/22 18:06 Albumin 2.8 g/dL (3.2-5.5) L 03/08/22 18:06 Globulin 4.3 g/dL (2.1-4.2) H 03/08/22 18:06 Albumin/Globulin Ratio 0.7 (1.0-2.2) L 03/08/22 18:06 Lipase 24 U/L (22-51) 03/08/22 18:06 Nasal Influenza A H3 PCR DETECTED A 03/08/22 18:20 Nasal Influenza B PCR NOT DETECTED 03/08/22 18:20 Nasal RSV (PCR) NOT DETECTED 03/08/22 18:20 Nasal SARS-CoV-2 (PCR) NOT DETECTED 03/08/22 18:20 Sepsis Event Note (H) - Evaluation Current Stage of Sepsis: Ruled out
[2022-03-15] MEDS: SODIUM CHLORIDE FLUSH 0.9% 10 ML SYRINGE IVP SCH ×3 (00:45→16:49)
[2022-03-15] MEDS: BENZONATATE 100 MG CAPSULE PO SCH ×3 (05:14→21:37)
[2022-03-15] MEDS ORDERED: FUROSEMIDE 40 MG/4 ML VIAL IVP SCH (06:00)
[2022-03-15 07:52] LABS: BASOPHILS # (AUTO) 0.1 10^3/uL (0.0-0.1); BASOPHILS % (AUTO) 0.5 %; EOSINOPHILS # (AUTO) 0.2 10^3/uL (0.0-0.7); EOSINOPHILS % (AUTO) 1.4 %; HCT - HEMATOCRIT 39.9 % (37.0-47.0); HGB - HEMOGLOBIN 12.4 g/dL (12.0-16.0); LYMPHOCYTES % (AUTO) 16.2 %; MEAN CORPUSCULAR HGB CONC 31.1 g/dL (32.0-36.0); MEAN CORPUSCULAR VOLUME 86.9 fL (81.0-99.0); MEAN PLATELET VOLUME 10.5 fL (7.9-10.8); MONOCYTES % (AUTO) 7.9 %; NEUTROPHILS % (AUTO) 72.9 %; PLT - PLATELET COUNT 354 10^3/uL (130-450); RED BLOOD COUNT 4.59 10^6/uL (4.20-5.40); WHITE BLOOD COUNT 12.3 x10^3/uL (4.8-10.8)
[2022-03-15 07:56] LABS: CALCIUM 8.8 mg/dL (8.5-10.3); CREATININE 1.6 mg/dL (0.4-1.0); POTASSIUM 3.7 mmol/L (3.5-5.0)
[2022-03-15] MEDS: INSULIN LISPRO 300 UNIT/3 ML PEN SUBQ SCH ×4 (08:15→21:35)
[2022-03-15] MEDS: guaiFENesin 600 MG TABLET PO SCH ×2 (08:16→21:34)
[2022-03-15] MEDS: polyethylene glycoL 3350 17 GM PACKET PO SCH (08:16)
[2022-03-15] MEDS: OSELTAMIVIR 30 MG CAPSULE PO SCH ×2 (08:17→21:35)
[2022-03-15] MEDS: CHOLECALCIFEROL 25 MCG TABLET PO SCH (08:17)
[2022-03-15] MEDS: atenoloL 25 MG TABLET PO SCH (08:17)
[2022-03-15] MEDS: MULTIVITAMIN W/MINERALS TABLET PO SCH (08:18)
[2022-03-15] MEDS: NYSTATIN POWDER 15 GM TOP SCH ×2 (09:43→21:35)
[2022-03-15] MEDS: ACETAMINOPHEN 500 MG TABLET PO SCH (09:44)
[2022-03-15] MEDS ORDERED: oxyCODONE 5 MG TABLET PO PRN (10:27)
--- NOTE | 2022-03-15 11:56 | PROVIDER PROGRESS NOTE ---
Assessment/Plan - Problem List (1) Acute respiratory failure with hypoxia Assessment/Plan: We thought the cause is likely her Influenza A. But today, with access to listen to her lungs posteriorly, she has velcro rales heard at both bases. Her suppl O2 needs vary between 1 and 3 L/min. Several CXRs repeated show slt improvement, nothing worse. Therefore we suspected she has marked atelectasis, because she is so weak, cannot elevated the Incentive Spirometer above 500 cc (per caregiver in room). Her BNP was elevated at 495 on 03/08 at admission>> 170 on repeat. Her last Echo was done in 2018, showed LVEF of 50%. Plan: Cont suppl O2, duonebs, cough syrup, IS ordered Will obtain an Echo (but today is Sat and we have no Echo service until ) IV Lasix x1 ordered for today (2) Influenza A Conclusion/Plan: Plan: Droplet isolation Tamiflu dose adjusted as per renal function if creatinine improves would increase the dose (3) Sacral decubitus ulcer, Stage III (L89.153) Nurses have been doing dressing changes daily, as ordered with continuation of the plan from [facility] home dressing changes. Today the wound looks much worse to me, the area is larger, there are multiple areas of skin breakdown, as deep as stage III, several areas appear purulent as well. Her WBC nayla from normal all these days since admission to [facility]BC 12 today Wound cx done and gram stain came back with GPC and GNR Plan: We will start empiric IV Vanco and IV Unasyn Await culture results and sensitivities We will get blood cultures if she has a fever spike Weber will be ordered for insertion to help heal the perineum Wound consult with [facility] placed (today Wednesday and they are not here till Wednesday however). Continue topical wound care for debridement and continue pain meds as needed (4) Bed bound Conclusion/Plan: As per Hx. Her caregiver lives with her for the past 4-5 years, and stays in this hospital room with her here. The caregiver has been caught attaching the pt to the Peggy lift herself. Was told not to do that. (5) Weakness Conclusion/Plan: We learned from her caregiver at her bedside, that she is usually bedbound and then a lift is used to put her in a recliner. She no longer walks or stands or pivots. The caregiver at bedside was not happy with how our staff was using the lift for her Plan: Will order OOB to chair via lift at least daily and prn for more frequent lifting to be in a chair. No OT or PT planned (6) Pressure ulcers Conclusion/Plan: RN has documented these in photos. 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 was doing dressing changes. I ordered the same to be done here Plan: From info from [facility] doing dressing changes. I ordered the same to be done here We also ordered turning and repositioning to get pressure off the area of b uttocks (7) DM2 (diabetes mellitus, type 2) Conclusion/Plan: Stable A1c at 6.7 Plan: She is on a diabetic diet, and hypoglycemia protocol, fingerstick checks and SS coverage Qualifiers: Diabetes mellitus chcf insulin use: without oysterman use Diabetes mellitus complication status: without complication Qualified Code(s): E11.9 - Type 2 diabetes mellitus without complications (8) HTN (hypertension) Conclusion/Plan: Stable on Atenolol and was on Lasix. Plan: If SBP > 160 mm of hg may consider Hydralazine We stopped iv NS and restarted Lasix (9) Elevated troponin Conclusion/Plan: Ekg was abnormal but there had been no concern for active ischemia with flat troponins - Current Meds Current Meds: Current Medications Generic Name Dose Route Start Last Admin Trade Name Freq PRN Reason Stop Dose Admin Acetaminophen 500 mg 03/09/22 09:00 03/15/22 09:44 Acetaminophen 500 Mg Tablet PO 500 mg DAILY SHAMIR Administration Acetaminophen 650 mg 03/09/22 00:53 03/14/22 16:06 Acetaminophen 325 Mg Tablet PO 650 mg Q4HR PRN Administration Pain 1 to 4, or Fever Albuterol/Ipratropium 3 ml 03/09/22 01:04 03/12/22 10:00 Ipratropium/Albuterol 3 Ml Neb INH 3 ml Q4HR PRN Administration Wheezing Atenolol 25 mg 03/09/22 09:00 03/15/22 08:17 Atenolol 25 Mg Tablet PO 25 mg DAILY SHAMIR Administration Benzonatate 100 mg 03/11/22 16:05 03/15/22 05:14 Benzonatate 100 Mg Capsule PO 100 mg TID SHAMIR Administration Cholecalciferol 50 mcg 03/11/22 09:00 03/15/22 08:17 Cholecalciferol 25 Mcg Tablet PO 50 mcg DAILY SHAMIR Administration Insulin Human Lispro 1 - 9 unit 03/09/22 12:00 03/15/22 08:15 Insulin Lispro 300 Unit/3 Ml Pen SUBQ Not Given 0800,1200,1700,2100 [facility] Protocol Multi-Ingredient Ointment 1 applic 03/09/22 10:44 03/13/22 13:51 Zinc Oxide 20% Oint 30 Gm Tube TOP 1 applic PRN PRN Administration Skin Care Multivitamins/Minerals 1 tab 03/10/22 17:00 03/15/22 08:18 Multivitamin W/Minerals Tablet PO 1 tab DAILYWM SHAMIR Administration Nystatin 1 applic 03/09/22 12:00 03/15/22 09:43 Nystatin Powder 15 Gm TOP 1 applic BID SHAMIR Administration Oseltamivir Phosphate 30 mg 03/09/22 09:00 03/15/22 08:17 Oseltamivir 30 Mg Capsule PO 30 mg BID SHAMIR Administration Polyethylene Glycol 17 gm 03/13/22 12:00 03/15/22 08:16 Polyethylene Glycol 3350 17 Gm Packet PO 17 gm DAILY SHAMIR Administration Sodium Chloride 10 ml 03/09/22 01:00 03/15/22 08:19 Sodium Chloride Flush 0.9% 10 Ml Syringe IVP 10 ml 0100,0900,1700 SHAMIR Administration - Lab Result Fish Bone Diagrams: 03/15/22 07:42 03/15/22 07:42 - Additional Planning My Orders: My Active Orders 03/15/22 CUL,WOUND (AEROBIC) [RM] Stat 03/15/22 10:27 oxyCODONE [Roxicodone] 10 mg PO Q6HR PRN 03/15/22 10:28 HYDROcod/ACETAM 5/325 [[place] 5/325] 1 tab PO Q6HR PRN 03/15/22 21:00 guaiFENesin [Mucinex] 600 mg PO BID Subjective - Subjective Nursing Reports: Other (Sacral wound appears worse: deeper wound, areas of bleedinga dnareas of purulence) Objective Vital Signs: Vital Signs - 24 hr 03/14/22 03/14/22 03/15/22 16:52 20:00 01:04 Temperature 36.4 C L 36.3 C L Heart Rate [ 63 68 Brachial] Respiratory 22 16 Rate Blood Pressure 143/60 H 144/64 H [Right Brachial artery] O2 Saturation 92 96 If not protocol 2 2 2 : Oxygen Flow, liters/minute 03/15/22 03/15/22 07:46 11:50 Temperature 36.3 C L Heart Rate [ 70 Brachial] Respiratory 22 Rate Blood Pressure 156/63 H [Right Brachial artery] O2 Saturation 92 If not protocol 2 2 : Oxygen Flow, liters/minute Oxygen O2 Source Nasal cannula Oxygen Flow Rate 2 I&O (Last 24 Hrs): Intake and Output Totals x24h 03/13/22 03/14/22 03/15/22 23:59 23:59 23:59 Intake Total 1020 1100 600 Output Total 565 606 6422 Balance 720 150 -1300 General: Alert, Oriented x3, Other (marked kyphosis) HEENT: Mucous membr. moist/pink Neck: Supple, No JVD Neuro: Alert, Non Focal, Other (generalized weakness) Cardiovascular: Regular rate, No murmurs Respiratory: No respiratory distress (wearing O2 per n.c.) Abdomen: Soft, No tenderness Genitourinary: Other (sacrum has large wound in different stages, tunneling seen, purulent pockets seen, some blood oozing) Extremities: Other (Trace edema) - Results Results: Laboratory Results WBC 12.3 x10^3/uL (4.8-10.8) H 03/15/22 07:42 RBC 4.59 10^6/uL (4.20-5.40) 03/15/22 07:42 Hgb 12.4 g/dL (12.0-16.0) 03/15/22 07:42 Hct 39.9 % (37.0-47.0) 03/15/22 07:42 MCV 86.9 fL (81.0-99.0) 03/15/22 07:42 MCH 27.0 pg (27.0-31.0) 03/15/22 07:42 MCHC 31.1 g/dL (32.0-36.0) L 03/15/22 07:42 RDW 14.0 % (12.0-15.0) 03/15/22 07:42 Plt Count 354 10^3/uL (130-450) 03/15/22 07:42 MPV 10.5 fL (7.9-10.8) 03/15/22 07:42 Neut # (Auto) 9.0 10^3/uL (1.5-6.6) H 03/15/22 07:42 Lymph # (Auto) 2.0 10^3/uL (1.5-3.5) 03/15/22 07:42 [place] # (Auto) 1.0 10^3/uL (0.0-1.0) 03/15/22 07:42 Eos # (Auto) 0.2 10^3/uL (0.0-0.7) 03/15/22 07:42 Baso # (Auto) 0.1 10^3/uL (0.0-0.1) 03/15/22 07:42 Absolute Nucleated RBC 0.00 x10^3/uL 03/15/22 07:42 Nucleated RBC % 0.0 /100WBC 03/15/22 07:42 Sodium 140 mmol/L (135-145) 03/15/22 07:42 Potassium 3.7 mmol/L (3.5-5.0) 03/15/22 07:42 Chloride 103 mmol/L (101-111) 03/15/22 07:42 Carbon Dioxide 23 mmol/L (21-32) 03/15/22 07:42 Anion Gap 14.0 (6-13) H 03/15/22 07:42 BUN 36 mg/dL (6-20) H 03/15/22 07:42 Creatinine 1.6 mg/dL (0.4-1.0) H 03/15/22 07:42 Estimated GFR (MDRD) 31 (>89) L 03/15/22 07:42 Glucose 149 mg/dL (70-100) H 03/15/22 07:42 Calcium 8.8 mg/dL (8.5-10.3) 03/15/22 07:42 Magnesium 1.8 mg/dL (1.7-2.8) 03/13/22 05:30 Total Bilirubin 0.5 mg/dL (0.2-1.0) 03/08/22 18:06 AST 23 IU/L (10-42) 03/08/22 18:06 ALT 11 IU/L (10-60) 03/08/22 18:06 Alkaline Phosphatase 68 IU/L (42-121) 03/08/22 18:06 Troponin I High Sens 37.8 ng/L (2.3-14.8) H* 03/09/22 01:11 B-Natriuretic Peptide 176 pg/mL (5-100) H 03/15/22 07:42 Total Protein 7.1 g/dL (6.7-8.2) 03/08/22 18:06 Albumin 2.8 g/dL (3.2-5.5) L 03/08/22 18:06 Globulin 4.3 g/dL (2.1-4.2) H 03/08/22 18:06 Albumin/Globulin Ratio 0.7 (1.0-2.2) L 03/08/22 18:06 Lipase 24 U/L (22-51) 03/08/22 18:06 Nasal Influenza A H3 PCR DETECTED A 03/08/22 18:20 Nasal Influenza B PCR NOT DETECTED 03/08/22 18:20 Nasal RSV (PCR) NOT DETECTED 03/08/22 18:20 Nasal SARS-CoV-2 (PCR) NOT DETECTED 03/08/22 18:20 Sepsis Event Note (H) - Evaluation Current Stage of Sepsis: Ruled out
--- NOTE | 2022-03-15 16:28 | PHARMACY PROGRESS NOTE ---
- Therapy Status Vancomycin regimen day #: 1 Therapy status: Awaiting steady state Basis for treatment: Empirical Treatment indication: Buttock wound Trough goal: 15-20 Concurrent antibiotics: Unasyn - VIRGEN Risk Risk level for Acute Kidney Injury: High Acute Kidney Injury risk factors: Baseline CrCl <50, Goal trough >15, Chronic baseline hypertension, Diabetes - Monitoring and Recommendation Clinical response to treatment: I&O Previous 24 hours 03/13/22 03/14/22 03/15/22 23:59 23:59 23:59 Intake Total 1020 1100 600 Output Total 956 729 6072 Balance 720 150 -1700 Lab Results 03/15/22 03/13/22 03/12/22 07:42 05:30 05:05 BUN 36 H 31 H 27 H Creatinine 1.6 H 1.5 H 1.4 H Estimated GFR (MDRD) 31 L 33 L 36 L 03/11/22 03/08/22 05:27 18:06 BUN 27 H 32 H Creatinine 1.4 H 1.6 H Estimated GFR (MDRD) 36 L 31 L Cultures 03/15/22 11:35 Buttock - Left Wound Culture - Preliminary Monitoring plan: Daily serum creatinine, Suggest ongoing fluid replacement Next trough due prior to maintenance dose #: 4 Areas for additional monitoring: IV to PO when appropriate, Therapy de- escalation based on culture results Pharmacy recommendation: Discontinue therapy
[2022-03-15] MEDS: SACCHAROMYCES BOULARDII 250 MG CAPSULE PO SCH (16:49)
[2022-03-15] MEDS ORDERED: VANCOMYCIN INJ 2 GM in SODIUM CHLORIDE 0.9% 500 ML IV ONE (17:00)
[2022-03-15 17:08] LABS: BILIRUBIN,URINE NEGATIVE (NEGATIVE); GLUCOSE, URINE (UA) NEGATIVE (NEGATIVE); KETONES,URINE (UA) NEGATIVE (NEGATIVE); LEUKOCYTE ESTERASE, URINE LARGE (NEGATIVE); NITRITE,URINE POSITIVE (NEGATIVE); OCCULT BLOOD,URINE LARGE (NEGATIVE); PROTEIN,URINE 30 mg/dL (NEGATIVE); UROBILINOGEN,URINE 0.2 (NORMAL) E.U./dL (NORMAL)
[2022-03-15 17:11] LABS: CLARITY,URINE CLOUDY (CLEAR)
[2022-03-15 17:21] LABS: BACTERIA,URINE Moderate /HPF (None Seen); RBC,URINE TNTC /HPF (0-5); SQUAMOUS EPITHELIAL CELL,UR NONE SEEN (<= Few); WBC,URINE >25 /HPF (0-5)
[2022-03-15] MEDS: AMPICILLIN/SULBACTAM 1.5 GM in SODIUM CHLORIDE 0.9% MINIBAG 100 ML IV SCH (18:54)
[2022-03-16] MEDS: AMPICILLIN/SULBACTAM 1.5 GM in SODIUM CHLORIDE 0.9% MINIBAG 100 ML IV SCH ×4 (02:13→19:58)
[2022-03-16] MEDS: SODIUM CHLORIDE FLUSH 0.9% 10 ML SYRINGE IVP SCH ×3 (02:14→17:05)
[2022-03-16] MEDS: BENZONATATE 100 MG CAPSULE PO SCH ×3 (06:37→21:44)
[2022-03-16 08:09] LABS: BASOPHILS # (AUTO) 0.1 10^3/uL (0.0-0.1); BASOPHILS % (AUTO) 0.4 %; EOSINOPHILS # (AUTO) 0.1 10^3/uL (0.0-0.7); EOSINOPHILS % (AUTO) 1.1 %; HCT - HEMATOCRIT 36.8 % (37.0-47.0); HGB - HEMOGLOBIN 11.3 g/dL (12.0-16.0); LYMPHOCYTES # (AUTO) 2.1 10^3/uL (1.5-3.5); LYMPHOCYTES % (AUTO) 16.9 %; MEAN CORPUSCULAR HEMOGLOBIN 26.4 pg (27.0-31.0); MEAN CORPUSCULAR HGB CONC 30.7 g/dL (32.0-36.0); MEAN PLATELET VOLUME 10.2 fL (7.9-10.8); NEUTROPHILS # (AUTO) 9.2 10^3/uL (1.5-6.6); NEUTROPHILS % (AUTO) 72.5 %; PLT - PLATELET COUNT 377 10^3/uL (130-450); RED BLOOD COUNT 4.28 10^6/uL (4.20-5.40); RED CELL DISTRIBUTION WIDTH 13.9 % (12.0-15.0); WHITE BLOOD COUNT 12.7 x10^3/uL (4.8-10.8)
[2022-03-16 08:17] LABS: CALCIUM 8.7 mg/dL (8.5-10.3); CREATININE 1.6 mg/dL (0.4-1.0); POTASSIUM 3.8 mmol/L (3.5-5.0)
[2022-03-16] MEDS: INSULIN LISPRO 300 UNIT/3 ML PEN SUBQ SCH ×4 (10:01→21:33)
[2022-03-16] MEDS: SACCHAROMYCES BOULARDII 250 MG CAPSULE PO SCH ×2 (10:12→17:03)
[2022-03-16] MEDS: CHOLECALCIFEROL 25 MCG TABLET PO SCH (10:12)
[2022-03-16] MEDS: MULTIVITAMIN W/MINERALS TABLET PO SCH (10:12)
[2022-03-16] MEDS: ACETAMINOPHEN 500 MG TABLET PO SCH (10:12)
[2022-03-16] MEDS: polyethylene glycoL 3350 17 GM PACKET PO SCH (10:13)
[2022-03-16] MEDS: DOCUSATE SODIUM 250 MG CAPSULE PO SCH (10:13)
[2022-03-16] MEDS: guaiFENesin 600 MG TABLET PO SCH ×2 (10:13→21:29)
[2022-03-16] MEDS: OSELTAMIVIR 30 MG CAPSULE PO SCH ×2 (10:13→21:29)
[2022-03-16] MEDS: SENNA 8.6 MG TABLET PO SCH (10:13)
[2022-03-16] MEDS: atenoloL 25 MG TABLET PO SCH (10:16)
[2022-03-16] MEDS: HYDROcod/ACETAM 5/325 MG TABLET PO PRN ×2 (12:00→18:07)
[2022-03-16] MEDS: NYSTATIN POWDER 15 GM TOP SCH ×2 (14:39→21:32)
[2022-03-16] MEDS: VANCOMYCIN INJ 1 GM, VANCOMYCIN INJ 500 MG in SODIUM CHLORIDE 0.9% 500 ML IV SCH (17:04)
--- NOTE | 2022-03-16 17:27 | PROVIDER PROGRESS NOTE ---
Assessment/Plan - Problem List (1) Acute respiratory failure with hypoxia Assessment/Plan: We thought the cause was likely her Influenza A. But daily when listening to her lungs posteriorly, she has velcro rales heard at both bases. Her suppl O2 needs vary between 1 and 3 L/min. Several CXRs repeated show slt improvement, nothing worse. Therefore we suspected she has marked atelectasis, because she is so weak, cannot elevate the Incentive Spirometer above 500 cc (per caregiver in room). Her BNP was elevated at 495 on 03/08 at admission>> 170 on repeat. Her last Echo was done in 2018, and showed LVEF of 50%. Plan: Cont suppl O2, duonebs, cough syrup, IS ordered and chest PT with a vest ordered Will obtain an Echo (but today is Wed and we have no Echo service until ) IV Lasix x1 ordered, not more until we know her LVEF (2) Influenza A Conclusion/Plan: Plan: Droplet isolation Tamiflu dose adjusted as per renal function if creatinine improves would inc rease the dose (3) UTI When I was in the room examining the patient's sacrum yesterday 03/15, she was being raised in a Peggy lift above her bed, and at the time was passing urine which was white. A urinalysis was obtained after a Weber was placed (to allow perineal healing, see #4). The UA showed many bacteria, positive nitrites and today the preliminary culture is growing Staph aureus. Plan: She was started on Vanco and Unasyn yesterday 03/15, as empiric coverage for a bacterial UTI (and sacral decubitus , see #4). Await urine cx result. If she spikes a fever, she needs blood cx ordered. Message given in the form of an SBAR to her RN, to contact night Telemedicine doctor if she spikes a fever. (4) Sacral decubitus ulcer, Stage III (L89.153) Since admission, nurses have been doing dressing changes daily, as ordered with continuation of the plan from [facility] home dressing changes. Since yesterday 03/15, the wound looks much worse: the area is larger, there are multiple areas of skin breakdown, as deep as stage III, several areas appear purulent and some are bleeding as well. Her WBC nayla from normal all these days since admission to [facility]BC 12 on 03/15. Wound cx done and gram stain came back with GPC and GNR Plan: We started empiric IV Vanco and IV Unasyn Await culture results and sensitivities We will get blood cultures if she has a fever spike Weber was ordered for insertion to help heal the perineum Wound consult with [facility] placed (today is Wed, and they are not here till Wednesday however). Continue topical wound care for debridement and continue pain meds as needed (5) Bed bound Conclusion/Plan: As per Hx obtained after admission. Her caregiver lives with her for the past 4- 5 years, and the caregiver stays in this hospital room with her here. The caregiver has been caught attaching the pt to the Peggy lift herself. Was told not to do that. (6) Weakness Conclusion/Plan: We learned from her caregiver at her bedside, that she is usually bedbound and that a lift is used to put her in a recliner chair. She no longer walks or s tands or pivots. The caregiver at bedside was not happy with how our staff was using the lift for her Plan: We ordered OOB to chair via lift at least daily and prn for more OOB to chair, when we though hse had atelectasis causing the rales. No OT or PT planned (7) Pressure ulcers Conclusion/Plan: RN has documented these in photos and I saw them at admission. 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 I ordered the same to be done here Plan: From info from [facility] doing dressing changes. I ordered the same to be done here We also ordered turning and repositioning and then OOB, to get pressure off the area of buttocks (8) DM2 (diabetes mellitus, type 2) Conclusion/Plan: Stable A1c at 6.7 Plan: She is on a diabetic diet, and hypoglycemia protocol, fingerstick checks and SS coverage Qualifiers: Diabetes mellitus fci insulin use: without fci use Diabetes me llitus complication status: without complication Qualified Code(s): E11.9 - Type 2 diabetes mellitus without complications (9) HTN (hypertension) Conclusion/Plan: Stable on Atenolol and was on Lasix. Plan: If SBP > 160 mm of hg may consider Hydralazine We stopped iv NS and restarted Lasix (10) Elevated troponin Conclusion/Plan: Ekg was abnormal but there had been no concern for active ischemia with flat troponins - Current Meds Current Meds: Current Medications Generic Name Dose Route Start Last Admin Trade Name Freq PRN Reason Stop Dose Admin Acetaminophen 500 mg 03/09/22 09:00 03/16/22 10:12 Acetaminophen 500 Mg Tablet PO 500 mg DAILY SHAMIR Administration Acetaminophen 650 mg 03/09/22 00:53 03/14/22 16:06 Acetaminophen 325 Mg Tablet PO 650 mg Q4HR PRN Administration Pain 1 to 4, or Fever Hydrocodone Bitart/Acetaminophen 1 tab 03/15/22 10:28 03/16/22 12:00 Hydrocod/Acetam 5/325 Mg Tablet PO 1 tab Q6HR PRN Administration Pain 5 to 7 Albuterol/Ipratropium 3 ml 03/09/22 01:04 03/12/22 10:00 Ipratropium/Albuterol 3 Ml Neb INH 3 ml Q4HR PRN Administration Wheezing Atenolol 25 mg 03/09/22 09:00 03/16/22 10:16 Atenolol 25 Mg Tablet PO 25 mg DAILY SHAMIR Administration Benzonatate 100 mg 03/11/22 16:05 03/16/22 14:39 Benzonatate 100 Mg Capsule PO 100 mg TID SHAMIR Administration Cholecalciferol 50 mcg 03/11/22 09:00 03/16/22 10:12 Cholecalciferol 25 Mcg Tablet PO 50 mcg DAILY SHAMIR Administration Docusate Sodium 250 - 500 mg 03/16/22 09:00 03/16/22 10:13 Docusate Sodium 250 Mg Capsule PO 250 mg DAILY SHAMIR Administration Guaifenesin 600 mg 03/15/22 21:00 03/16/22 10:13 Guaifenesin 600 Mg Tablet PO 600 mg BID SHAMIR Administration Vancomycin HCl 1 gm/ 500 mls @ 250 mls/hr 03/16/22 17:00 03/16/22 17:04 Vancomycin HCl 500 mg/ Sodium IV 250 mls/hr Chloride Q24H SHAMIR Administration Ampicillin Sodium/Sulbactam 100 mls @ 200 mls/hr 03/16/22 08:00 03/16/22 15:15 Sodium 1.5 gm/ Sodium Chloride IV Infused Q6H [facility] Infusion Insulin Human Lispro 1 - 9 unit 03/09/22 12:00 03/16/22 17:10 Insulin Lispro 300 Unit/3 Ml Pen SUBQ 1 unit 0800,1200,1700,2100 [facility] Administration Protocol Multi-Ingredient Ointment 1 applic 03/09/22 10:44 03/13/22 13:51 Zinc Oxide 20% Oint 30 Gm Tube TOP 1 applic PRN PRN Administration Skin Care Multivitamins/Minerals 1 tab 03/10/22 17:00 03/16/22 10:12 Multivitamin W/Minerals Tablet PO 1 tab DAILYWM [facility] Administration Nystatin 1 applic 03/09/22 12:00 03/16/22 14:39 Nystatin Powder 15 Gm TOP Not Given BID [facility] Oseltamivir Phosphate 30 mg 03/09/22 09:00 03/16/22 10:13 Oseltamivir 30 Mg Capsule PO 30 mg BID SHAMIR Administration Polyethylene Glycol 17 gm 03/13/22 12:00 03/16/22 10:13 Polyethylene Glycol 3350 17 Gm Packet PO 17 gm DAILY [facility] Administration Saccharomyces Boulardii 250 mg 03/15/22 17:00 03/16/22 17:03 Saccharomyces Boulardii 250 Mg Capsule PO 250 mg BIDWM [facility] Administration Senna 8.6 - 17.2 mg 03/16/22 09:00 03/16/22 10:13 Senna 8.6 Mg Tablet PO 8.6 mg DAILY [facility] Administration Sodium Chloride 10 ml 03/09/22 01:00 03/16/22 17:05 Sodium Chloride Flush 0.9% 10 Ml Syringe IVP 10 ml 0100,0900,1700 [facility] Administration - Lab Result Fish Bone Diagrams: 03/16/22 08:00 03/16/22 08:00 - Additional Planning My Orders: My Active Orders 03/15/22 16:50 CUL, URINE [RM] Stat 03/15/22 17:00 Saccharomyces Boulardii [Florastor] 250 mg PO BIDWM 03/15/22 21:00 guaiFENesin [Mucinex] 600 mg PO BID 03/16/22 08:00 Ampicillin/Sulbactam [Unasyn] 1.5 gm Sodium Chloride 0.9% Minibag [Normal Saline 0.9% Minibag] 100 ml IV Q6H 03/16/22 09:00 Docusate Sodium 250Mg Capsule [Colace 250Mg Capsule] 250 - 500 mg PO DAILY Senna [Senokot] 8.6 - 17.2 mg PO DAILY 03/16/22 Dinner Carb-controlled Diet [DIET] 03/16/22 17:00 Vancomycin Inj [Vancomycin] 1 gm Vancomycin Inj [Vancomycin Hcl] 500 mg Sodium Chloride 0.9% [Normal Saline 0.9%] 500 ml IV Q24H 03/17/22 05:00 BMP - BASIC METABOLIC PANEL [CHEM] DAILYLAB CBC - COMP BLD CT W/AUTO DIFF [HEME] DAILYLAB MAGNESIUM [CHEM] DAILYLAB 03/18/22 05:00 BMP - BASIC METABOLIC PANEL [CHEM] DAILYLAB CBC - COMP BLD CT W/AUTO DIFF [HEME] DAILYLAB 03/19/22 05:00 BMP - BASIC METABOLIC PANEL [CHEM] DAILYLAB CBC - COMP BLD CT W/AUTO DIFF [HEME] DAILYLAB 03/20/22 05:00 BMP - BASIC METABOLIC PANEL [CHEM] DAILYLAB CBC - COMP BLD CT W/AUTO DIFF [HEME] DAILYLAB Subjective - Subjective Patient Reports: Other (Weak, less cough) Nursing Reports: Other (She refuses to get the chest PT vest that was ordered) Objective Vital Signs: Vital Signs - 24 hr 03/15/22 03/15/22 03/16/22 18:56 20:00 04:08 Temperature 37.1 C 37 C Heart Rate [ 80 Brachial] Respiratory 20 Rate Blood Pressure 146/57 H [Right Brachial artery] O2 Saturation 91 L If not protocol 2 3 : Oxygen Flow, liters/minute 03/16/22 03/16/22 03/16/22 07:30 08:01 16:55 Temperature 36.9 C 36.7 C Heart Rate [ 72 57 L Brachial] Respiratory 20 22 Rate Blood Pressure 142/62 H 139/54 H [Right Brachial artery] O2 Saturation 91 L 93 If not protocol 3 2 2 : Oxygen Flow, liters/minute Oxygen O2 Source Nasal cannula Oxygen Flow Rate 2 I&O (Last 24 Hrs): Intake and Output Totals x24h 03/14/22 03/15/22 03/16/22 23:59 23:59 23:59 Intake Total 1100 1950 1780 Output Total 950 3500 250 Balance 150 -1550 1530 General: Alert, Other (Appears fatigued. Has marked kyphosis when seated.) Neck: Supple Neuro: Alert, Non Focal, Other (generalized weakness) Cardiovascular: No murmurs Respiratory: Rales (both bases) Abdomen: Soft, Other (Obese) Extremities: Other (Trace pedal edema) - Results Results: Laboratory Results WBC 12.7 x10^3/uL (4.8-10.8) H 03/16/22 08:00 RBC 4.28 10^6/uL (4.20-5.40) 03/16/22 08:00 Hgb 11.3 g/dL (12.0-16.0) L 03/16/22 08:00 Hct 36.8 % (37.0-47.0) L 03/16/22 08:00 MCV 86.0 fL (81.0-99.0) 03/16/22 08:00 MCH 26.4 pg (27.0-31.0) L 03/16/22 08:00 MCHC 30.7 g/dL (32.0-36.0) L 03/16/22 08:00 RDW 13.9 % (12.0-15.0) 03/16/22 08:00 Plt Count 377 10^3/uL (130-450) 03/16/22 08:00 MPV 10.2 fL (7.9-10.8) 03/16/22 08:00 Neut # (Auto) 9.2 10^3/uL (1.5-6.6) H 03/16/22 08:00 Lymph # (Auto) 2.1 10^3/uL (1.5-3.5) 03/16/22 08:00 [place] # (Auto) 1.0 10^3/uL (0.0-1.0) 03/16/22 08:00 Eos # (Auto) 0.1 10^3/uL (0.0-0.7) 03/16/22 08:00 Baso # (Auto) 0.1 10^3/uL (0.0-0.1) 03/16/22 08:00 Absolute Nucleated RBC 0.00 x10^3/uL 03/16/22 08:00 Nucleated RBC % 0.0 /100WBC 03/16/22 08:00 Sodium 141 mmol/L (135-145) 03/16/22 08:00 Potassium 3.8 mmol/L (3.5-5.0) 03/16/22 08:00 Chloride 104 mmol/L (101-111) 03/16/22 08:00 Carbon Dioxide 21 mmol/L (21-32) 03/16/22 08:00 Anion Gap 16.0 (6-13) H 03/16/22 08:00 BUN 36 mg/dL (6-20) H 03/16/22 08:00 Creatinine 1.6 mg/dL (0.4-1.0) H 03/16/22 08:00 Estimated GFR (MDRD) 31 (>89) L 03/16/22 08:00 Glucose 151 mg/dL (70-100) H 03/16/22 08:00 Calcium 8.7 mg/dL (8.5-10.3) 03/16/22 08:00 Magnesium 1.8 mg/dL (1.7-2.8) 03/13/22 05:30 Total Bilirubin 0.5 mg/dL (0.2-1.0) 03/08/22 18:06 AST 23 IU/L (10-42) 03/08/22 18:06 ALT 11 IU/L (10-60) 03/08/22 18:06 Alkaline Phosphatase 68 IU/L (42-121) 03/08/22 18:06 Troponin I High Sens 37.8 ng/L (2.3-14.8) H* 03/09/22 01:11 B-Natriuretic Peptide 176 pg/mL (5-100) H 03/15/22 07:42 Total Protein 7.1 g/dL (6.7-8.2) 03/08/22 18:06 Albumin 2.8 g/dL (3.2-5.5) L 03/08/22 18:06 Globulin 4.3 g/dL (2.1-4.2) H 03/08/22 18:06 Albumin/Globulin Ratio 0.7 (1.0-2.2) L 03/08/22 18:06 Lipase 24 U/L (22-51) 03/08/22 18:06 Urine Color YELLOW 03/15/22 16:50 Urine Clarity CLOUDY (CLEAR) 03/15/22 16:50 Urine pH 6.0 PH (5.0-7.5) 03/15/22 16:50 Ur Specific [place] 1.020 (1.002-1.030) 03/15/22 16:50 Urine Protein 30 mg/dL (NEGATIVE) H 03/15/22 16:50 Urine Glucose (UA) NEGATIVE mg/dL (NEGATIVE) 03/15/22 16:50 Urine Ketones NEGATIVE mg/dL (NEGATIVE) 03/15/22 16:50 Urine Occult Blood LARGE (NEGATIVE) H 03/15/22 16:50 Urine Nitrite POSITIVE (NEGATIVE) H 03/15/22 16:50 Urine Bilirubin NEGATIVE (NEGATIVE) 03/15/22 16:50 Urine Urobilinogen 0.2 (NORMAL) E.U./dL (NORMAL) 03/15/22 16:50 Ur Leukocyte Esterase LARGE (NEGATIVE) H 03/15/22 16:50 Urine RBC TNTC /HPF (0-5) H 03/15/22 16:50 Urine WBC >25 /HPF (0-5) H 03/15/22 16:50 Ur Squamous Epith Cells NONE SEEN (<= Few) 03/15/22 16:50 Urine Bacteria Moderate /HPF (None Seen) H 03/15/22 16:50 Urine Culture Comments INDICATED 03/15/22 16:50 Nasal Influenza A H3 PCR DETECTED A 03/08/22 18:20 Nasal Influenza B PCR NOT DETECTED 03/08/22 18:20 Nasal RSV (PCR) NOT DETECTED 03/08/22 18:20 Nasal SARS-CoV-2 (PCR) NOT DETECTED 03/08/22 18:20 Sepsis Event Note (H) - Evaluation Current Stage of Sepsis: Ruled out
[2022-03-17] MEDS: SODIUM CHLORIDE FLUSH 0.9% 10 ML SYRINGE IVP SCH ×3 (01:29→16:59)
[2022-03-17] MEDS: AMPICILLIN/SULBACTAM 1.5 GM in SODIUM CHLORIDE 0.9% MINIBAG 100 ML IV SCH ×4 (01:30→20:16)
[2022-03-17 05:41] LABS: BASOPHILS # (AUTO) 0.1 10^3/uL (0.0-0.1); BASOPHILS % (AUTO) 0.8 %; EOSINOPHILS # (AUTO) 0.4 10^3/uL (0.0-0.7); EOSINOPHILS % (AUTO) 3.1 %; HGB - HEMOGLOBIN 10.6 g/dL (12.0-16.0); LYMPHOCYTES # (AUTO) 2.6 10^3/uL (1.5-3.5); LYMPHOCYTES % (AUTO) 21.8 %; MEAN CORPUSCULAR HEMOGLOBIN 26.6 pg (27.0-31.0); MEAN CORPUSCULAR HGB CONC 30.3 g/dL (32.0-36.0); MEAN CORPUSCULAR VOLUME 87.9 fL (81.0-99.0); MEAN PLATELET VOLUME 10.6 fL (7.9-10.8); MONOCYTES # (AUTO) 1.1 10^3/uL (0.0-1.0); MONOCYTES % (AUTO) 9.3 %; NEUTROPHILS # (AUTO) 7.6 10^3/uL (1.5-6.6); NEUTROPHILS % (AUTO) 63.7 %; PLT - PLATELET COUNT 360 10^3/uL (130-450); RED BLOOD COUNT 3.98 10^6/uL (4.20-5.40); WHITE BLOOD COUNT 11.9 x10^3/uL (4.8-10.8)
[2022-03-17 05:53] LABS: CALCIUM 8.6 mg/dL (8.5-10.3); CREATININE 1.4 mg/dL (0.4-1.0); MAGNESIUM 2.1 mg/dL (1.7-2.8); POTASSIUM 3.7 mmol/L (3.5-5.0)
[2022-03-17] MEDS: BENZONATATE 100 MG CAPSULE PO SCH ×3 (06:17→21:25)
--- NOTE | 2022-03-17 08:08 | PROVIDER PROGRESS NOTE ---
Subjective - Prog Note Date Prog Note Date: 03/17/22 Prog Note Time: 08:07 - Subjective Subjective: Refuses to move. 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 She feels like the nurses are too rough with her. In spite of us explaining that her skin has broken down with a pressure ulcer, and it is getting worse, and we need to move her, she refuses to do so. I did call her brother Yossi Song in [facility] at [phone]. There is no other family. He has not seen her in years but they speak weekly. He had his on the phone and gave permission to speak on the phone with her listening in. He describes his sister is very reclusive, chair bound. She even refuses to get out of a chair to go to the bathroom. Her caregiver has been very good to her for the last 2 years. As far as he knows there is no legal relationship with the patient and the caregiver other than a simple employee her/employee relationship. However they are very devoted to 1 another. Urine culture from March 15 is growing out E. coli. Left buttock skin culture has grown MRSA and E. coli. Current Medications - Current Medications Current Medications: Active Medications Acetaminophen (Acetaminophen 500 Mg Tablet) 500 mg PO DAILY [facility] Last Admin: 03/16/22 10:12 Dose: 500 mg Acetaminophen (Acetaminophen 325 Mg Tablet) 650 mg PO Q4HR PRN PRN Reason: Pain 1 to 4, or Fever Last Admin: 03/14/22 16:06 Dose: 650 mg Hydrocodone Bitart/Acetaminophen (Hydrocod/Acetam 5/325 Mg Tablet) 1 tab PO Q6HR PRN PRN Reason: Pain 5 to 7 Last Admin: 03/16/22 18:07 Dose: 1 tab Albuterol/Ipratropium (Ipratropium/Albuterol 3 Ml Neb) 3 ml INH Q4HR PRN PRN Reason: Wheezing Last Admin: 03/12/22 10:00 Dose: 3 ml Amitriptyline HCl (Amitriptyline 10 Mg Tablet) 5 mg PO QPM PRN PRN Reason: Insomnia Atenolol (Atenolol 25 Mg Tablet) 25 mg PO DAILY [facility] Last Admin: 03/16/22 10:16 Dose: 25 mg Benzonatate (Benzonatate 100 Mg Capsule) 100 mg PO TID [facility] Last Admin: 03/17/22 06:17 Dose: 100 mg Cholecalciferol (Cholecalciferol 25 Mcg Tablet) 50 mcg PO DAILY [facility] Last Admin: 03/16/22 10:12 Dose: 50 mcg Docusate Sodium (Docusate Sodium 250 Mg Capsule) 250 - 500 mg PO DAILY [facility] Last Admin: 03/16/22 10:13 Dose: 250 mg Guaifenesin (Guaifenesin 600 Mg Tablet) 600 mg PO BID [facility] Last Admin: 03/16/22 21:29 Dose: 600 mg Vancomycin HCl 1 gm/Vancomycin HCl 500 mg/ Sodium Chloride 500 mls @ 250 mls/hr IV Q24H [facility] Last Infusion: 03/16/22 19:18 Dose: Infused Ampicillin Sodium/Sulbactam (Sodium 1.5 gm/ Sodium Chloride) 100 mls @ 200 mls/hr IV Q6H [facility] Last Infusion: 03/17/22 02:00 Dose: Infused Ibuprofen (Ibuprofen 400 Mg Tablet) 400 mg PO Q4HR PRN PRN Reason: Pain 1 to 4 Insulin Human Lispro (Insulin Lispro 300 Unit/3 Ml Pen) 1 - 9 unit SUBQ 0800,1200,1700,2100 [facility]; Protocol Last Admin: 03/16/22 21:33 Dose: 1 unit Loratadine (Loratadine 10 Mg Tablet) 10 mg PO DAILY PRN PRN Reason: ALLERGIES Multi-Ingredient Ointment (Zinc Oxide 20% Oint 30 Gm Tube) 1 applic TOP PRN PRN PRN Reason: Skin Care Last Admin: 03/13/22 13:51 Dose: 1 applic Multivitamins/Minerals (Multivitamin W/Minerals Tablet) 1 tab PO DAILYWM [facility] Last Admin: 03/16/22 10:12 Dose: 1 tab Nystatin (Nystatin Powder 15 Gm) 1 applic TOP BID [facility] Last Admin: 03/16/22 21:32 Dose: 1 applic Ondansetron HCl (Ondansetron 4 Mg/2 Ml Vial) 4 mg IVP Q6HR PRN PRN Reason: Nausea / Vomiting Oseltamivir Phosphate (Oseltamivir 30 Mg Capsule) 30 mg PO BID [facility] Last Admin: 03/16/22 21:29 Dose: 30 mg Oxycodone HCl (Oxycodone 5 Mg Tablet) 10 mg PO Q6HR PRN PRN Reason: PAIN >8 Polyethylene Glycol (Polyethylene Glycol 3350 17 Gm Packet) 17 gm PO DAILY [facility] Last Admin: 03/16/22 10:13 Dose: 17 gm Prochlorperazine Edisylate (Prochlorperazine 10 Mg/2 Ml Vial) 10 mg IVP Q6HR PRN PRN Reason: Nausea / Vomiting Saccharomyces Boulardii (Saccharomyces Boulardii 250 Mg Capsule) 250 mg PO BIDWM [facility] Last Admin: 03/16/22 17:03 Dose: 250 mg Senna (Senna 8.6 Mg Tablet) 8.6 - 17.2 mg PO DAILY [facility] Last Admin: 03/16/22 10:13 Dose: 8.6 mg Sodium Chloride (Sodium Chloride Flush 0.9% 10 Ml Syringe) 10 ml IVP PRN PRN PRN Reason: NEEDED PER PROVIDER ORDERS Last Admin: 03/16/22 20:00 Dose: 10 ml Sodium Chloride (Sodium Chloride Flush 0.9% 10 Ml Syringe) 10 ml IVP 0100,0900,1700 [facility] Last Admin: 03/17/22 01:29 Dose: 10 ml Acetaminophen 500 mg PO PRN PRN 02/13/16 Amitriptyline HCl 5 mg PO QPM PRN 02/13/16 atenoloL [Atenolol] 25 mg PO DAILY 02/13/16 metFORMIN [Glucophage] 1,000 mg PO BIDWM 04/21/17 Objective - Vital Signs/Intake & Output Reviewed Vital Signs: Yes Vital Signs: Vital Signs x48h Temp Pulse Resp BP Pulse Ox O2 Flow Rate 03/17/22 07:51 37.0 C 74 20 157/70 H 91 L 2 03/17/22 02:42 64 135/46 H 03/17/22 00:35 36.5 C 71 18 171/76 H 96 2 Intake & Output: Intake & Output 03/14/22 03/15/22 03/16/22 03/17/22 23:59 23:59 23:59 23:59 Intake Total 1100 1950 2850 100 Output Total 950 3500 600 400 Balance 150 -1550 2250 -300 - Objective General Appearance: positive: Alert, Other (Elderly female sitting up in bed. Caregiver in the sofa next to her.) Eyes Bilateral: positive: PERRL, EOMI ENT: positive: No signs of dehydration Neck: positive: No JVD. negative: Stiff neck Respiratory: positive: No respiratory distress, Rales, Other (Unlabored, shallow respiration. Diminished at bases.) Cardiovascular: positive: Regular rate & rhythm, Systolic murmur Abdomen: positive: Non-tender, No organomegaly, Nml bowel sounds, No distention Skin: positive: Other (Please see assessment and plan) Extremities: positive: Full ROM, Pedal edema Neurologic/Psychiatric: positive: Oriented x3, CN's nml (2-12). negative: Motor nml (She does not have the strength to sit on her own from a supine position. She cannot stand. Dependent on a Yessy lift because of leg weakness) - Lab Results Fish Bones: 03/18/22 05:11 03/18/22 05:11 Other Labs: Lab Results x24hrs 03/17/22 03/17/22 03/16/22 Range/Units 05:35 05:35 08:00 WBC 11.9 H (4.8-10.8) x10^3/uL RBC 3.98 L (4.20-5.40) 10^6/uL Hgb 10.6 L (12.0-16.0) g/dL Hct 35.0 L (37.0-47.0) % MCV 87.9 (81.0-99.0) fL MCH 26.6 L (27.0-31.0) pg MCHC 30.3 L (32.0-36.0) g/dL RDW 14.0 (12.0-15.0) % Plt Count 360 (130-450) 10^3/uL MPV 10.6 (7.9-10.8) fL Neut # (Auto) 7.6 H (1.5-6.6) 10^3/uL Lymph # (Auto) 2.6 (1.5-3.5) 10^3/uL [place] # (Auto) 1.1 H (0.0-1.0) 10^3/uL Eos # (Auto) 0.4 (0.0-0.7) 10^3/uL Baso # (Auto) 0.1 (0.0-0.1) 10^3/uL Absolute Nucleated RBC 0.00 x10^3/uL Nucleated RBC % 0.0 /100WBC Sodium 140 141 (135-145) mmol/L Potassium 3.7 3.8 (3.5-5.0) mmol/L Chloride 105 104 (101-111) mmol/L Carbon Dioxide 23 21 (21-32) mmol/L Anion Gap 12.0 16.0 H (6-13) BUN 46 H 36 H (6-20) mg/dL Creatinine 1.4 H 1.6 H (0.4-1.0) mg/dL Estimated GFR (MDRD) 36 L 31 L (>89) Glucose 140 H 151 H (70-100) mg/dL Calcium 8.6 8.7 (8.5-10.3) mg/dL Magnesium 2.1 (1.7-2.8) mg/dL 03/16/22 Range/Units 08:00 WBC 12.7 H (4.8-10.8) x10^3/uL RBC 4.28 (4.20-5.40) 10^6/uL Hgb 11.3 L (12.0-16.0) g/dL Hct 36.8 L (37.0-47.0) % MCV 86.0 (81.0-99.0) fL MCH 26.4 L (27.0-31.0) pg MCHC 30.7 L (32.0-36.0) g/dL RDW 13.9 (12.0-15.0) % Plt Count 377 (130-450) 10^3/uL MPV 10.2 (7.9-10.8) fL Neut # (Auto) 9.2 H (1.5-6.6) 10^3/uL Lymph # (Auto) 2.1 (1.5-3.5) 10^3/uL [place] # (Auto) 1.0 (0.0-1.0) 10^3/uL Eos # (Auto) 0.1 (0.0-0.7) 10^3/uL Baso # (Auto) 0.1 (0.0-0.1) 10^3/uL Absolute Nucleated RBC 0.00 x10^3/uL Nucleated RBC % 0.0 /100WBC Sodium (135-145) mmol/L Potassium (3.5-5.0) mmol/L Chloride (101-111) mmol/L Carbon Dioxide (21-32) mmol/L Anion Gap (6-13) BUN (6-20) mg/dL Creatinine (0.4-1.0) mg/dL Estimated GFR (MDRD) (>89) Glucose (70-100) mg/dL Calcium (8.5-10.3) mg/dL Magnesium (1.7-2.8) mg/dL ABX Reporting Has patient been on IV antibiotics over the past 48 hours?: Yes Sepsis Event Note (H) - Evaluation Current Stage of Sepsis: Ruled out Assessment/Plan - Problem List (1) Acute respiratory failure with hypoxia Impression: We thought the cause was likely her Influenza A. But daily when listening to her lungs posteriorly, she has velcro rales heard at both bases. Her suppl O2 needs vary between 1 and 3 L/min but she has been on 2 for most of the last day and today. Several CXRs repeated show slt improvement, nothing worse. Therefore we suspected she has marked atelectasis, because she is so weak, cannot elevate the Incentive Spirometer above 500 cc (per caregiver in room). Her BNP was elevated at 495 on 03/08 at admission>> 170 on repeat. Her last Echo was done in 2018, and showed LVEF of 50%. Plan: Cont suppl O2, duonebs, cough syrup, IS ordered and chest PT with a vest ordered Will obtain an Echo. not ordered yet and will be done for tomorrow IV Lasix x1 ordered, not more until we know her LVEF (2) Influenza A Conclusion/Plan: Plan: Droplet isolation Tamiflu dose adjusted as per renal function if creatinine improves would increase the dose (3) UTI When previous hospitalist was in the room examining the patient's sacrum 03/15, she was being raised in a Peggy lift above her bed and she was noted to be passing urine which was white. A urinalysis was obtained after a Weber was placed (to allow perineal healing, see #4). The UA showed many bacteria, positive nitrites and 03/16 preliminary culture is growing E coli. Sensitivity today with resistance to cipro and levaguin but responds to Unasyn. No ESBL Plan: She was started on Vanco and Unasyn 03/15, as empiric coverage for a bacterial UTI (and sacral decubitus , see #4). If she spikes a fever, she needs blood cx ordered. Message given in the form of an SBAR to her RN, to contact night Telemedicine doctor if she spikes a fever. (4) Sacral decubitus ulcer, Stage III (L89.153) Since admission, nurses have been doing dressing changes daily, as ordered with continuation of the plan from [facility] dressing changes. Since 03/15, the wound looks much worse: the area is larger, there are multiple areas of skin breakdown, as deep as stage III, several areas appear purulent and some are bleeding as well. Her WBC nayla from normal all these days since admission to [facility] on 03/15. Wound cx done and gram stain came back with GPC and GNR and cultures shows MRSA and E coli. We started empiric IV Vanco and IV Unasyn Weber was ordered for insertion to help heal the perineum Wound RN saw the patient but can't write orders so she asked me to do them and I wrote them as miscellaneous order to nursing. Continue topical wound care and continue pain meds as needed (5) Bed bound Conclusion/Plan: As per Hx obtained after admission. Her caregiver lives with her for the past 4- 5 years, and the caregiver stays in this hospital room with her here. The caregiver has been caught attaching the pt to the Peggy lift herself. Was told not to do that. (6) Weakness Conclusion/Plan: We learned from her caregiver at her bedside, that she is usually bedbound and that a lift is used to put her in a recliner chair. She no longer walks or stands or pivots. The caregiver at bedside was not happy with how our staff was using the lift for her Plan: We ordered OOB to chair via lift at least daily and prn for more OOB to chair, when we thought she had atelectasis causing the rales. No OT or PT planned (7) Pressure ulcers Conclusion/Plan: RN has documented these in photos and I saw them at admission. 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 The same was done here and I have written for new orders per wound RN instruction. Plan: Turning and repositioning and then OOB, to get pressure off the area of buttocks (8) DM2 (diabetes mellitus, type 2) Conclusion/Plan: Stable A1c at 6.7 Plan: She is on a diabetic diet, and hypoglycemia protocol, fingerstick checks and SS coverage Qualifiers: Diabetes mellitus senior care insulin use: without roller structural mill use Diabetes mellitus complication status: without complication Qualified Code(s): E11.9 - Type 2 diabetes mellitus without complications (9) HTN (hypertension) Conclusion/Plan: Stable on Atenolol and was on Lasix. 157/70 and 135/46 today. Plan: If SBP > 160 mm of hg may consider Hydralazine We stopped iv NS and restarted Lasix (10) Elevated troponin Conclusion/Plan: Ekg was abnormal but there had been no concern for active ischemia with flat troponins
[2022-03-17] MEDS: SACCHAROMYCES BOULARDII 250 MG CAPSULE PO SCH ×2 (08:13→16:55)
[2022-03-17] MEDS: MULTIVITAMIN W/MINERALS TABLET PO SCH (08:13)
[2022-03-17] MEDS: DOCUSATE SODIUM 250 MG CAPSULE PO SCH (09:19)
[2022-03-17] MEDS: ACETAMINOPHEN 500 MG TABLET PO SCH (09:19)
[2022-03-17] MEDS: INSULIN LISPRO 300 UNIT/3 ML PEN SUBQ SCH ×4 (09:19→21:26)
[2022-03-17] MEDS: atenoloL 25 MG TABLET PO SCH (09:19)
[2022-03-17] MEDS: CHOLECALCIFEROL 25 MCG TABLET PO SCH (09:20)
[2022-03-17] MEDS: polyethylene glycoL 3350 17 GM PACKET PO SCH (09:20)
[2022-03-17] MEDS: NYSTATIN POWDER 15 GM TOP SCH ×2 (09:20→21:24)
[2022-03-17] MEDS: OSELTAMIVIR 30 MG CAPSULE PO SCH ×2 (09:20→21:24)
[2022-03-17] MEDS: SENNA 8.6 MG TABLET PO SCH (09:20)
[2022-03-17] MEDS: guaiFENesin 600 MG TABLET PO SCH ×2 (09:20→21:22)
[2022-03-17] MEDS: HYDROcod/ACETAM 5/325 MG TABLET PO PRN (16:56)
[2022-03-17] MEDS: VANCOMYCIN INJ 1 GM, VANCOMYCIN INJ 500 MG in SODIUM CHLORIDE 0.9% 500 ML IV SCH (16:59)
[2022-03-17] MEDS: IPRATROPIUM/ALBUTEROL 3 ML NEB INH PRN (20:45)
[2022-03-17] MEDS: MIN OIL/DIMETHICON/COCONUT OIL 92 GM TUBE TOP PRN (21:24)
[2022-03-18] MEDS: MIN OIL/DIMETHICON/COCONUT OIL 92 GM TUBE TOP PRN (01:15)
[2022-03-18] MEDS: HYDROcod/ACETAM 5/325 MG TABLET PO PRN (01:47)
[2022-03-18] MEDS: AMPICILLIN/SULBACTAM 1.5 GM in SODIUM CHLORIDE 0.9% MINIBAG 100 ML IV SCH ×4 (01:49→21:38)
[2022-03-18] MEDS: SODIUM CHLORIDE FLUSH 0.9% 10 ML SYRINGE IVP SCH ×3 (01:49→17:06)
[2022-03-18 05:21] LABS: BASOPHILS # (AUTO) 0.1 10^3/uL (0.0-0.1); BASOPHILS % (AUTO) 0.8 %; EOSINOPHILS # (AUTO) 0.2 10^3/uL (0.0-0.7); HCT - HEMATOCRIT 33.3 % (37.0-47.0); LYMPHOCYTES # (AUTO) 2.7 10^3/uL (1.5-3.5); LYMPHOCYTES % (AUTO) 22.4 %; MEAN CORPUSCULAR HEMOGLOBIN 26.6 pg (27.0-31.0); MEAN CORPUSCULAR VOLUME 88.6 fL (81.0-99.0); MEAN PLATELET VOLUME 10.5 fL (7.9-10.8); MONOCYTES # (AUTO) 1.1 10^3/uL (0.0-1.0); MONOCYTES % (AUTO) 9.3 %; NEUTROPHILS # (AUTO) 7.7 10^3/uL (1.5-6.6); NEUTROPHILS % (AUTO) 64.2 %; PLT - PLATELET COUNT 339 10^3/uL (130-450); RED BLOOD COUNT 3.76 10^6/uL (4.20-5.40)
[2022-03-18 05:28] LABS: CALCIUM 8.5 mg/dL (8.5-10.3); CREATININE 1.4 mg/dL (0.4-1.0); POTASSIUM 3.4 mmol/L (3.5-5.0)
[2022-03-18] MEDS: BENZONATATE 100 MG CAPSULE PO SCH ×3 (06:37→21:41)
[2022-03-18] MEDS: SACCHAROMYCES BOULARDII 250 MG CAPSULE PO SCH ×2 (07:59→17:05)
[2022-03-18] MEDS: MULTIVITAMIN W/MINERALS TABLET PO SCH (07:59)
[2022-03-18] MEDS: CHOLECALCIFEROL 25 MCG TABLET PO SCH (09:06)
[2022-03-18] MEDS: polyethylene glycoL 3350 17 GM PACKET PO SCH (09:06)
[2022-03-18] MEDS: ACETAMINOPHEN 500 MG TABLET PO SCH (09:07)
[2022-03-18] MEDS: atenoloL 25 MG TABLET PO SCH (09:07)
[2022-03-18] MEDS: guaiFENesin 600 MG TABLET PO SCH ×2 (09:07→21:40)
[2022-03-18] MEDS: DOCUSATE SODIUM 250 MG CAPSULE PO SCH ×2 (09:07→21:41)
[2022-03-18] MEDS: SENNA 8.6 MG TABLET PO SCH (09:07)
[2022-03-18] MEDS: INSULIN LISPRO 300 UNIT/3 ML PEN SUBQ SCH ×4 (09:08→21:40)
[2022-03-18] MEDS: NYSTATIN POWDER 15 GM TOP SCH ×2 (09:17→21:41)
[2022-03-18] MEDS: OSELTAMIVIR 30 MG CAPSULE PO SCH ×2 (09:19→21:41)
[2022-03-18] MEDS ORDERED: MAGNESIUM HYDROXIDE 2,400 MG/30 ML UDC PO ONE (11:22)
[2022-03-18] MEDS ORDERED: BISACODYL 10 MG SUPP PR ONE (11:22)
--- NOTE | 2022-03-18 13:55 | PROVIDER PROGRESS NOTE ---
Progress Note March 18, 2022 1:47 PM The patient is upright in bed, watching TV. Asked me to lower the volume because she cannot hear. Care provider who is usually with her is not at the bedside today. Patient denies any significant discomfort. She is still coughing, congested. Says it is about the same, may be better. She really does not have any appetite. Her main complaint centers around as having to make her move. She gets very annoyed when nursing and aides want to move her to rotate her body. I explained that we have to do this because her skin is breaking down where she is sitting on it. She says that "I do not care, you are making my back hurt more". We try to get an echo on her today but she did not want to cooperate with the t ach. She was coughing and unable to tolerate ultrasound transducer on her chest. The wound nurse was able to see her yesterday. Wrote a note. Asked me to write some wound orders and I did those afternoon. Temperature is 36.8. Heart rate 72. Blood pressure 183/63. At rest she is able to carry on a reasonable conversation without increased respiratory effort. She gets tachypneic and short of breath when we have to sit her up, roller or try and move her with a Yessy lift. Respirations are 18. She requires 2 L nasal cannula to saturate at 96%. Elderly frail female who knows that she is in the hospital and why she is here Neck is supple with shotty adenopathy and no JVD or bruits Coarse upper airway rhonchi, congested cough, not bringing anything up and swallows or phlegm. No tachypnea or respiratory distress at rest. Regular rate and rhythm Abdomen is soft, nontender with last bowel movement March 10. She is eating between 20 to 75% of her food. Nursing does have her on a bowel protocol. Neurologically she is alert, disoriented to time only. Moderately deaf. Not moving her legs purposely to stand. But she can move her feet or flex at the knees when I asked her to. R eastman wound is wrapped and no surrounding redness or heat. Sacrum not healing well and still w Stage III and surrounding soft tissue maceration Sodium 137, potassium 3.4, chloride 112. BUN 49, creatinine 1.4. White cell count 12, hemoglobin 10, hematocrit 33, platelets 339 March 15 urine culture for E. coli resistant to ciprofloxacin and Levaquin but sensitive to ampicillin and Unasyn Wound culture with MRSA, E. coli, Enterococcus faecalis. E. coli is resistant to Cipro. Enterococcus is intermediate for tetracycline but sensitive to all else. Assessment/Plan - Problem List (1) Acute respiratory failure with hypoxia Impression: We thought the cause was likely her Influenza A. But daily when listening to her lungs posteriorly, she has velcro rales heard at both bases. Her suppl O2 needs vary between 1 and 3 L/min but she has been on 2 for most of the last day and today. Several CXRs repeated show slt improvement, nothing worse. Therefore we suspected she has marked atelectasis, because she is so weak, cannot elevate the Incentive Spirometer above 500 cc (per caregiver in room). Her BNP was elevated at 495 on 03/08 at admission>> 170 on repeat. Her last Echo was done in 2017, and showed LVEF of 50%. Limited echo done today. Ejection fraction is 55 to 60%. Right ventricular systolic function normal. Atria not well visualized, mild tricuspid regurgitation, mildly abnormal right heart pressures with an RVSP at 42 mmHg. Plan: Cont suppl O2, duonebs, cough syrup, IS ordered and chest PT with a vest ordered In looking at her intake and output with fluid balance she is not remarkably positive. On the fourth she had a negative balance of 1550 cc with her Lasix dose. On the fifth she was +2250. Yesterday she was +990. Today she is so far negative at 130. As such, I will not give more Lasix today. (2) Influenza A Conclusion/Plan: Plan: Droplet isolation Tamiflu dose adjusted as per renal function if creatinine improves would increase the dose She received an initial 5 days, and because of her severe illness, another 5 days was added. Today will be her 10th day and final dose. (3) UTI When previous hospitalist was in the room examining the patient's sacrum 03/15, she was being raised in a Peggy lift above her bed and she was noted to be passing urine which was white. A urinalysis was obtained after a Weber was placed (to allow perineal healing, see #4). The UA showed many bacteria, positive nitrites and 03/16 preliminary culture is growing E coli. Sensitivity today with resistance to cipro and levaguin but responds to Unasyn. No ESBL Plan: She was started on Vanco and Unasyn 03/15, as empiric coverage for a bacterial UTI (and sacral decubitus , see #4). So far she has not been spiking a fever, as such no blood cultures have been done.Today is day #4 of antibiotics. E. coli sensitive to Unasyn, ampicillin, Ancef, cefepime. Oral antibiotics would cover her would be Bactrim and Macrobid. I need to be able to cover the UTI as well as the organisms in her sacrum. The MRSA needs vancomycin, and the E. coli, Enterococcus show resistance to Cipro, tetracycline. At this time the ampicillin in the Unasyn covers this. I would like to de-escalate but I do not think I can.I will aim for 7 days of antibiotic therapy. (4) Sacral decubitus ulcer, Stage III (L89.153) Since admission, nurses have been doing dressing changes daily, as ordered with continuation of the plan from [facility] home dressing changes. Since 03/15, the wound looks much worse: the area is larger, there are multiple areas of skin breakdown, as deep as stage III, several areas appear purulent and some are bleeding as well. Her WBC nayla from normal all these days since admission to [facility] 12 on 03/15. Wound cx done and gram stain came back with GPC and GNR and cultures shows MRSA, enterococcus, and E coli. On empiric IV Vanco and IV Unasyn and those do cover the organisms. Weber was ordered for insertion to help heal the perineum Wound RN saw the patient 03/17 but can't write orders so she asked me to do them and I wrote them as miscellaneous order to nursing Continue topical wound care and continue pain meds as needed I have asked General Surgery to see her in consultation. After antibiotic therapy, I would like to be able to send her home with home health wound care orders. General surgery will let me gauge whether this is feasible or not. (5) Bed bound Conclusion/Plan: As per Hx obtained after admission. Her caregiver lives with her for the past 4- 5 years, and the caregiver stays in this hospital room with her here. The caregiver has been caught attaching the pt to the Peggy lift herself. Was told not to do that. (6) Weakness Conclusion/Plan: We learned from her caregiver at her bedside, that she is usually bedbound and that a lift is used to put her in a recliner chair. She no longer walks or stands or pivots. The caregiver at bedside was not happy with how our staff was using the lift for her Plan: We ordered OOB to chair via lift at least daily and prn for more OOB to chair, when we thought she had atelectasis causing the rales. No OT or PT planned (7) Pressure ulcers Conclusion/Plan: RN has documented these in photos and I saw them at admission. 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 The same was done here and I have written for new orders 03/17 per wound RN instruction. Plan: Turning and repositioning and then OOB, to get pressure off the area of buttocks Surgery consult for advice. (8) DM2 (diabetes mellitus, type 2) Conclusion/Plan: Stable A1c at 6.7 Plan: She is on a diabetic diet, and hypoglycemia protocol, fingerstick checks and SS coverage Qualifiers: Diabetes mellitus cisco certified network associate insulin use: without cisco certified network associate use Diabetes mellitus complication status: without complication Qualified Code(s): E11.9 - Type 2 diabetes mellitus without complications (9) HTN (hypertension) Conclusion/Plan: Stable on Atenolol and was on Lasix. 157/70 and 135/46 yesterday. 183/63 this m orning. She is allergic to SO. Plan: If SBP > 160 mm of hg may consider Hydralazine We stopped iv NS and restarted Lasix Add norvasc today. (10) Elevated troponin Conclusion/Plan: Ekg was abnormal but there had been no concern for active ischemia with flat troponins
[2022-03-18] MEDS: amLODIPine 5 MG TABLET PO SCH (15:00)
--- NOTE | 2022-03-18 16:19 | CONSULTATION NOTE ---
Referring Provider Name of Referring Provider:: Natasha Magallanes) Consult Date: 03/18/22 Chief Complaint - Chief Complaint Chief Complaint: sacral decubitus ulcer History of Present Illness - History Obtained From Records Reviewed: yes History obtained from: patient, chart, primary team - History of Present Illness HPI Comment/Other: 81 y/o F patient with multiple medical problems who is bedbound at baseline and was admitted with a UTI and acute respiratory failure. Since admission, her sacral decubitus ulcer appears to have worsened from stage I to stage III, and to assess the wound and make recommendations, I have been consulted. At the time of my visit, the patient History - Past Medical History Cardiovascular: reports: Congestive heart failure, Hypertension Endocrine/Autoimmune: reports: Type 2 diabetes GI: reports: None : reports: Frequency HEENT: reports: None Musculoskeletal: reports: Osteoarthritis, Chronic back pain Derm: reports: None MRSA Hx?: No - Past Surgical History Ortho: reports: Hip replacement, Knee replacement /LOOP TACKER: reports: Hysterectomy HEENT: reports: Cataracts, Tonsil/Adenoidectomy - Family & Social History Social History Notes: pt denies cigarette smoking, alcoholic and drug issues. - Substance History Use: Uses substance without health or social issues: NONE - POLST Patient has POLST: Yes POLST Status: DNR Meds/Allgy - Home Medications Home Medications: Ambulatory Orders Medication Instructions Recorded Confirmed Acetaminophen 500 mg PO PRN PRN 02/13/16 03/10/22 Amitriptyline HCl 5 mg PO QPM PRN 02/13/16 03/10/22 atenoloL [Atenolol] 25 mg PO DAILY 02/13/16 03/09/22 metFORMIN [Glucophage] 1,000 mg PO BIDWM 04/21/17 03/10/22 - Allergies Allergies/Adverse Reactions: Allergies Allergy/AdvReac Type Severity Reaction Status Date / Time SO Inhibitors Allergy Unknown Verified 04/21/17 15:53 cyclobenzaprine Allergy Unknown Verified 04/21/17 16:09 [From Flexeril] venom-honey bee Allergy Unknown Verified 04/21/17 15:53 Review of Systems - Constitutional Constitutional: reports: Other (10 point ROS is negative except for HPI and PMH.) Exam - Vital Signs Reviewed Vital Signs: Yes Vital Signs: Vital Signs x48h Temp Pulse Resp BP Pulse Ox O2 Flow Rate 03/18/22 09:00 2 03/18/22 08:21 36.8 C 74 18 183/63 H 96 2 - Physical Exam General Appearance: positive: No acute distress, Alert Eyes Bilateral: positive: PERRL, EOMI ENT: positive: No signs of dehydration Neck: positive: Trachea midline Respiratory: positive: No respiratory distress, Other (on 2L NC) Cardiovascular: positive: Regular rate & rhythm Abdomen: positive: Non-tender. negative: Guarding, Rebound Skin: positive: Decubitus (large sacral decub, up to stage III with dehydrated eschar in wound) Neurologic/Psychiatric: positive: Oriented x3 Conclusion and Plan - Lab Results Microbiology Results 03/15/22 11:35 Buttock - Left Wound Culture - Final Methicillin Resist S. Aureus Escherichia Coli Enterococcus Faecalis. 03/15/22 16:50 Urine,Clean Catch Urine Culture - Final Escherichia Coli Laboratory Results 03/18/22 05:11: Sodium 138, Potassium 3.4 L, Chloride 112 H, Carbon Dioxide 23, Anion Gap 3.0 L, BUN 49 H, Creatinine 1.4 H, Estimated GFR (MDRD) 36 L, Glucose 132 H, Calcium 8.5 03/18/22 05:11: WBC 12.0 H, RBC 3.76 L, Hgb 10.0 L, Hct 33.3 L, MCV 88.6, MCH 26.6 L, MCHC 30.0 L, RDW 14.0, Plt Count 339, MPV 10.5, Neut # (Auto) 7.7 H, Lymph # (Auto) 2.7, Calvert # (Auto) 1.1 H, Eos # (Auto) 0.2, Baso # (Auto) 0.1, Absolute Nucleated RBC 0.00, Nucleated RBC % 0.0 03/17/22 05:35: Sodium 140, Potassium 3.7, Chloride 105, Carbon Dioxide 23, Anion Gap 12.0, BUN 46 H, Creatinine 1.4 H, Estimated GFR (MDRD) 36 L, Glucose 140 H, Calcium 8.6, Magnesium 2.1 03/17/22 05:35: WBC 11.9 H, RBC 3.98 L, Hgb 10.6 L, Hct 35.0 L, MCV 87.9, MCH 26.6 L, MCHC 30.3 L, RDW 14.0, Plt Count 360, MPV 10.6, Neut # (Auto) 7.6 H, Lymph # (Auto) 2.6, Calvert # (Auto) 1.1 H, Eos # (Auto) 0.4, Baso # (Auto) 0.1, Absolute Nucleated RBC 0.00, Nucleated RBC % 0.0 - Diagnosis Diagnosis: sacral decubitus ulcer - Plan Plan: Stage III with dehydrated eschar - recommend BID damp to dry dressing changes with 0.25% Dakin's - recommend patient not be directly on her back as much as possible We will continue to follow. Thank you for consulting us in the care of this patient! Other medical problems as per primary team.
[2022-03-18] MEDS: VANCOMYCIN INJ 1 GM, VANCOMYCIN INJ 500 MG in SODIUM CHLORIDE 0.9% 500 ML IV SCH (17:08)
[2022-03-19] MEDS: SODIUM CHLORIDE FLUSH 0.9% 10 ML SYRINGE IVP SCH ×4 (01:35→23:48)
[2022-03-19] MEDS: AMPICILLIN/SULBACTAM 1.5 GM in SODIUM CHLORIDE 0.9% MINIBAG 100 ML IV SCH ×5 (01:35→23:47)
[2022-03-19 05:23] LABS: BASOPHILS # (AUTO) 0.1 10^3/uL (0.0-0.1); BASOPHILS % (AUTO) 0.8 %; EOSINOPHILS # (AUTO) 0.2 10^3/uL (0.0-0.7); EOSINOPHILS % (AUTO) 1.4 %; HCT - HEMATOCRIT 35.3 % (37.0-47.0); HGB - HEMOGLOBIN 10.5 g/dL (12.0-16.0); LYMPHOCYTES # (AUTO) 2.5 10^3/uL (1.5-3.5); LYMPHOCYTES % (AUTO) 18.1 %; MEAN CORPUSCULAR HEMOGLOBIN 26.2 pg (27.0-31.0); MEAN CORPUSCULAR HGB CONC 29.7 g/dL (32.0-36.0); MEAN PLATELET VOLUME 10.6 fL (7.9-10.8); MONOCYTES # (AUTO) 1.3 10^3/uL (0.0-1.0); MONOCYTES % (AUTO) 9.8 %; NEUTROPHILS # (AUTO) 9.3 10^3/uL (1.5-6.6); NEUTROPHILS % (AUTO) 68.9 %; PLT - PLATELET COUNT 388 10^3/uL (130-450); RED BLOOD COUNT 4.01 10^6/uL (4.20-5.40); WHITE BLOOD COUNT 13.5 x10^3/uL (4.8-10.8)
[2022-03-19 05:30] LABS: CALCIUM 8.7 mg/dL (8.5-10.3); CREATININE 1.4 mg/dL (0.4-1.0); POTASSIUM 3.7 mmol/L (3.5-5.0)
[2022-03-19] MEDS: BENZONATATE 100 MG CAPSULE PO SCH ×3 (06:43→18:59)
--- NOTE | 2022-03-19 07:46 | PROVIDER PROGRESS NOTE ---
Subjective - General Admit Date: 03/10/22 - Review of Systems Wound/Incisions: positive: Decubitis General: positive: Weakness Objective - Patient Data Reviewed Vital Signs: Yes Vital Signs: Vital Signs x48h Temp Pulse Resp BP Pulse Ox O2 Flow Rate 03/19/22 01:00 37.4 C 76 16 143/53 H 92 2 Intake & Output: Intake and Output Totals x24h 03/17/22 03/18/22 03/19/22 23:59 23:59 23:59 Intake Total 2390 1140 100 Output Total 1400 1875 700 Balance 998 -780 -672 - Lab Results Lab Results: 03/19/22 05:16 03/19/22 05:16 Other Lab Results: Lab Results x24hrs 03/19/22 03/19/22 Range/Units 05:16 05:16 WBC 13.5 H (4.8-10.8) x10^3/uL RBC 4.01 L (4.20-5.40) 10^6/uL Hgb 10.5 L (12.0-16.0) g/dL Hct 35.3 L (37.0-47.0) % MCV 88.0 (81.0-99.0) fL MCH 26.2 L (27.0-31.0) pg MCHC 29.7 L (32.0-36.0) g/dL RDW 14.0 (12.0-15.0) % Plt Count 388 (130-450) 10^3/uL MPV 10.6 (7.9-10.8) fL Neut # (Auto) 9.3 H (1.5-6.6) 10^3/uL Lymph # (Auto) 2.5 (1.5-3.5) 10^3/uL Coffey # (Auto) 1.3 H (0.0-1.0) 10^3/uL Eos # (Auto) 0.2 (0.0-0.7) 10^3/uL Baso # (Auto) 0.1 (0.0-0.1) 10^3/uL Absolute Nucleated RBC 0.00 x10^3/uL Nucleated RBC % 0.0 /100WBC Sodium 144 (135-145) mmol/L Potassium 3.7 (3.5-5.0) mmol/L Chloride 110 (101-111) mmol/L Carbon Dioxide 23 (21-32) mmol/L Anion Gap 11.0 (6-13) BUN 44 H (6-20) mg/dL Creatinine 1.4 H (0.4-1.0) mg/dL Estimated GFR (MDRD) 36 L (>89) Glucose 151 H (70-100) mg/dL Calcium 8.7 (8.5-10.3) mg/dL - Current Medications Current Medications: Current Medications Generic Name Dose Route Start Last Admin Trade Name Freq PRN Reason Stop Dose Admin Acetaminophen 500 mg 03/09/22 09:00 03/18/22 09:07 Acetaminophen 500 Mg Tablet PO 500 mg DAILY SHAMIR Administration Acetaminophen 650 mg 03/09/22 00:53 03/14/22 16:06 Acetaminophen 325 Mg Tablet PO 650 mg Q4HR PRN Administration Pain 1 to 4, or Fever Hydrocodone Bitart/Acetaminophen 1 tab 03/15/22 10:28 03/18/22 01:47 Hydrocod/Acetam 5/325 Mg Tablet PO 1 tab Q6HR PRN Administration Pain 5 to 7 Albuterol/Ipratropium 3 ml 03/09/22 01:04 03/17/22 20:45 Ipratropium/Albuterol 3 Ml Neb INH 3 ml Q4HR PRN Administration Wheezing Amlodipine Besylate 5 mg 03/18/22 14:11 03/18/22 15:00 Amlodipine 5 Mg Tablet PO 5 mg DAILY SHAMIR Administration Atenolol 25 mg 03/09/22 09:00 03/18/22 09:07 Atenolol 25 Mg Tablet PO 25 mg DAILY SHAMIR Administration Benzonatate 100 mg 03/11/22 16:05 03/19/22 06:43 Benzonatate 100 Mg Capsule PO 100 mg TID SHAMIR Administration Cholecalciferol 50 mcg 03/11/22 09:00 03/18/22 09:06 Cholecalciferol 25 Mcg Tablet PO 50 mcg DAILY SHAMIR Administration Docusate Sodium 250 - 500 mg 03/16/22 09:00 03/18/22 21:41 Docusate Sodium 250 Mg Capsule PO 500 mg DAILY SHAMIR Administration Guaifenesin 600 mg 03/15/22 21:00 03/18/22 21:40 Guaifenesin 600 Mg Tablet PO Not Given BID SHAMIR Vancomycin HCl 1 gm/ 500 mls @ 250 mls/hr 03/16/22 17:00 03/18/22 21:37 Vancomycin HCl 500 mg/ Sodium IV Infused Chloride Q24H SHAMIR Infusion Ampicillin Sodium/Sulbactam 100 mls @ 200 mls/hr 03/16/22 08:00 03/19/22 02:05 Sodium 1.5 gm/ Sodium Chloride IV Infused Q6H SHAMIR Infusion Ibuprofen 400 mg 03/09/22 00:53 03/17/22 20:19 Ibuprofen 400 Mg Tablet PO 400 mg Q4HR PRN Administration Pain 1 to 4 Insulin Human Lispro 1 - 9 unit 03/09/22 12:00 03/18/22 21:40 Insulin Lispro 300 Unit/3 Ml Pen SUBQ 3 unit 0800,1200,1700,2100 SHAMIR Administration Protocol Mineral Oil 1 applic 03/17/22 15:52 03/18/22 01:15 Min Oil/Dimethicon/Coconut Oil 92 Gm Tube TOP 1 applic PRN PRN Administration Skin Care Multi-Ingredient Ointment 1 applic 03/09/22 10:44 03/13/22 13:51 Zinc Oxide 20% Oint 30 Gm Tube TOP 1 applic PRN PRN Administration Skin Care Multivitamins/Minerals 1 tab 03/10/22 17:00 03/18/22 07:59 Multivitamin W/Minerals Tablet PO 1 tab DAILYWM SHAMIR Administration Nystatin 1 applic 03/09/22 12:00 03/18/22 21:41 Nystatin Powder 15 Gm TOP 1 applic BID SHAMIR Administration Polyethylene Glycol 17 gm 03/13/22 12:00 03/18/22 09:06 Polyethylene Glycol 3350 17 Gm Packet PO 17 gm DAILY SHAMIR Administration Saccharomyces Boulardii 250 mg 03/15/22 17:00 03/18/22 17:05 Saccharomyces Boulardii 250 Mg Capsule PO 250 mg BIDWM SHAMIR Administration Senna 8.6 - 17.2 mg 03/16/22 09:00 03/18/22 09:07 Senna 8.6 Mg Tablet PO 8.6 mg DAILY SHAMIR Administration Sodium Chloride 10 ml 03/09/22 00:53 03/16/22 20:00 Sodium Chloride Flush 0.9% 10 Ml Syringe IVP 10 ml PRN PRN Administration NEEDED PER PROVIDER ORDERS Sodium Chloride 10 ml 03/09/22 01:00 03/19/22 01:35 Sodium Chloride Flush 0.9% 10 Ml Syringe IVP 10 ml 0100,0900,1700 SHAMIR Administration - Physical Exam Wound/Incisions: positive: Decubitis (5 x 6.5 cm (greatest dimensions) with no significant granulation tissue and 2 x 1 cm area of black eschar within wound. To the left of the primary wound, two smaller (superior 1cm, inferior 2cm in diameter) wounds are present. Damp to dry dressing with barrier cream surrounding wound replaced.) General Appearance: positive: No acute distress Neck: positive: Trachea midline Respiratory: positive: No respiratory distress, Other (on 2L NC) Impression/Plan - Problem List Problem List: 81 y/o F who is bed bound at baseline and has multiple medical comorbidities, admitted for acute respiratory failure and UTI. We are consulted for worsening sacral decubitus ulcer. Sacral decubitus ulcer - likely stage III, wound looks worse today, but damp to dry dressings have not been started until my visit. - macerated edges - plan for BID dressing change with damp to dry dressing (Antisept on 4x4), barrier cream around edges of wound and ABD. - plan to do damp to dry dressing changes with gentle debridement for a couple of days to determine how much (if any) sharp debridment may be needed - off load (avoid direct pressure to area) wound as much as possible - consider nutrition consult UTI, respiratory failure, flu, DM, HTN - as per primary team We will continue to follow.
[2022-03-19] MEDS: polyethylene glycoL 3350 17 GM PACKET PO SCH (09:03)
[2022-03-19] MEDS: atenoloL 25 MG TABLET PO SCH ×2 (09:06→11:35)
[2022-03-19] MEDS: SENNA 8.6 MG TABLET PO SCH (09:06)
[2022-03-19] MEDS: LORATADINE 10 MG TABLET PO PRN (09:06)
[2022-03-19] MEDS: MULTIVITAMIN W/MINERALS TABLET PO SCH ×2 (09:07→11:35)
[2022-03-19] MEDS: ACETAMINOPHEN 500 MG TABLET PO SCH ×2 (09:07→11:35)
[2022-03-19] MEDS: SACCHAROMYCES BOULARDII 250 MG CAPSULE PO SCH ×3 (09:07→17:08)
[2022-03-19] MEDS: amLODIPine 5 MG TABLET PO SCH ×2 (09:07→11:35)
[2022-03-19] MEDS: INSULIN LISPRO 300 UNIT/3 ML PEN SUBQ SCH ×4 (09:09→21:28)
[2022-03-19] MEDS: NYSTATIN POWDER 15 GM TOP SCH ×2 (09:10→18:21)
[2022-03-19] MEDS: CHOLECALCIFEROL 25 MCG TABLET PO SCH ×2 (09:14→11:35)
[2022-03-19] MEDS: guaiFENesin 600 MG TABLET PO SCH ×3 (09:14→18:59)
--- NOTE | 2022-03-19 10:52 | PROVIDER PROGRESS NOTE ---
Progress Note March 19, 2022 10:41 AM She is sitting up in bed. Eyes are closed. The entire time I speak to her she answers me appropriately and keeps her eyes closed. Her caregiver is at the bedside. She also speaks to the patient and the patient answers with her eyes closed. She denies abdominal pain. She continues to refuse medications this morning. She continues to refuse us rotating her to reduce her risk of further skin breakdown. General surgery is also seeing the patient to help us with her sacral wound. During my exam and questioning, the patient continues to cough, have chest congestion. She does not bring up her phlegm. Active Medications Acetaminophen (Acetaminophen 500 Mg Tablet) 500 mg PO DAILY [facility] Last Admin: 03/18/22 09:07 Dose: 500 mg Acetaminophen (Acetaminophen 325 Mg Tablet) 650 mg PO Q4HR PRN PRN Reason: Pain 1 to 4, or Fever Last Admin: 03/14/22 16:06 Dose: 650 mg Hydrocodone Bitart/Acetaminophen (Hydrocod/Acetam 5/325 Mg Tablet) 1 tab PO Q6HR PRN PRN Reason: Pain 5 to 7 Last Admin: 03/18/22 01:47 Dose: 1 tab Albuterol/Ipratropium (Ipratropium/Albuterol 3 Ml Neb) 3 ml INH Q4HR PRN PRN Reason: Wheezing Last Admin: 03/17/22 20:45 Dose: 3 ml Amitriptyline HCl (Amitriptyline 10 Mg Tablet) 5 mg PO QPM PRN PRN Reason: Insomnia Amlodipine Besylate (Amlodipine 5 Mg Tablet) 5 mg PO DAILY [facility] Last Admin: 03/18/22 15:00 Dose: 5 mg Atenolol (Atenolol 25 Mg Tablet) 25 mg PO DAILY [facility] Last Admin: 03/18/22 09:07 Dose: 25 mg Benzonatate (Benzonatate 100 Mg Capsule) 100 mg PO TID [facility] Last Admin: 03/19/22 06:43 Dose: 100 mg Cholecalciferol (Cholecalciferol 25 Mcg Tablet) 50 mcg PO DAILY [facility] Last Admin: 03/18/22 09:06 Dose: 50 mcg Docusate Sodium (Docusate Sodium 250 Mg Capsule) 250 - 500 mg PO DAILY [facility] Last Admin: 03/18/22 21:41 Dose: 500 mg Guaifenesin (Guaifenesin 600 Mg Tablet) 600 mg PO BID [facility] Last Admin: 03/18/22 21:40 Dose: Not Given Vancomycin HCl 1 gm/Vancomycin HCl 500 mg/ Sodium Chloride 500 mls @ 250 mls/hr IV Q24H [facility] Last Infusion: 03/18/22 21:37 Dose: Infused Ampicillin Sodium/Sulbactam (Sodium 1.5 gm/ Sodium Chloride) 100 mls @ 200 mls/hr IV Q6H [facility] Last Infusion: 03/19/22 02:05 Dose: Infused Ibuprofen (Ibuprofen 400 Mg Tablet) 400 mg PO Q4HR PRN PRN Reason: Pain 1 to 4 Last Admin: 03/17/22 20:19 Dose: 400 mg Insulin Human Lispro (Insulin Lispro 300 Unit/3 Ml Pen) 1 - 9 unit SUBQ 0800,1200,1700,2100 [facility]; Protocol Last Admin: 03/19/22 09:09 Dose: 1 unit Loratadine (Loratadine 10 Mg Tablet) 10 mg PO DAILY PRN PRN Reason: ALLERGIES Last Admin: 03/19/22 09:06 Dose: 10 mg Mineral Oil (Min Oil/Dimethicon/Coconut Oil 92 Gm Tube) 1 applic TOP PRN PRN PRN Reason: Skin Care Last Admin: 03/18/22 01:15 Dose: 1 applic Multi-Ingredient Ointment (Zinc Oxide 20% Oint 30 Gm Tube) 1 applic TOP PRN PRN PRN Reason: Skin Care Last Admin: 03/13/22 13:51 Dose: 1 applic Multivitamins/Minerals (Multivitamin W/Minerals Tablet) 1 tab PO DAILYWM [facility] Last Admin: 03/18/22 07:59 Dose: 1 tab Nystatin (Nystatin Powder 15 Gm) 1 applic TOP BID [facility] Last Admin: 03/19/22 09:10 Dose: 1 applic Ondansetron HCl (Ondansetron 4 Mg/2 Ml Vial) 4 mg IVP Q6HR PRN PRN Reason: Nausea / Vomiting Oxycodone HCl (Oxycodone 5 Mg Tablet) 10 mg PO Q6HR PRN PRN Reason: PAIN >8 Polyethylene Glycol (Polyethylene Glycol 3350 17 Gm Packet) 17 gm PO DAILY [facility] Last Admin: 03/19/22 09:03 Dose: 17 gm Prochlorperazine Edisylate (Prochlorperazine 10 Mg/2 Ml Vial) 10 mg IVP Q6HR PRN PRN Reason: Nausea / Vomiting Saccharomyces Boulardii (Saccharomyces Boulardii 250 Mg Capsule) 250 mg PO BIDWM [facility] Last Admin: 03/18/22 17:05 Dose: 250 mg Senna (Senna 8.6 Mg Tablet) 8.6 - 17.2 mg PO DAILY [facility] Last Admin: 03/19/22 09:06 Dose: 8.6 mg Sodium Chloride (Sodium Chloride Flush 0.9% 10 Ml Syringe) 10 ml IVP PRN PRN PRN Reason: NEEDED PER PROVIDER ORDERS Last Admin: 03/16/22 20:00 Dose: 10 ml Sodium Chloride (Sodium Chloride Flush 0.9% 10 Ml Syringe) 10 ml IVP 0100,0900,1700 [facility] Last Admin: 03/19/22 09:08 Dose: 10 ml Exam: Temperature is 37.0. Heart rate 69. Blood pressure 162/58. Respirations 20. 91% on 2 L. Supple neck, shotty adenopathy, no bruit, no JVD Lungs have coarse upper airway sounds. Occasional rhonchi that clear with her cough. No respiratory distress. No use of accessory muscles. Regular rate and rhythm Abdomen soft, nontender. She denies any abdominal pain when I palpate. Normal bowel sounds. She has not had a bowel movement since March 10. Weber in place draining yellow urine. No edema present in her ankles Neurologically she is alert to person, place. Hard of hearing. But responds appropriately to her caregiver. Interesting that she would not open her eyes today to us. She does not give me any particular reason for why she is speaking to me with her eyes closed. Sodium 144, potassium 3.7, BUN 44. Creatinine 1.4 and stable from yesterday. Fasting glucose 151. White cell count 13.5. Continues to slowly rise every day. She was 10.3 on March 13, 2012 0.0 yesterday, 13.5 today. Hemoglobin 10.5. Platelets 388. March 15 urine culture for E. coli resistant to ciprofloxacin and Levaquin but sensitive to ampicillin and Unasyn Wound culture with MRSA, E. coli, Enterococcus faecalis. E. coli is resistant to Cipro. Enterococcus is intermediate for tetracycline but sensitive to all else. Assessment/Plan - Problem List (1) Acute respiratory failure with hypoxia Impression: Our initial thought process was that influenza was giving her hypoxia from viral pneumonia. But lung exam was concerning for possible congestive heart failure. Several chest x-rays if showed improvement but the patient continues to have hypoxia, rising white cell count. We did do an echocardiogram to make sure that she was not in congestive heart failure. An echo in 2017 had ejection fraction of 50%. A limited echocardiogram done March 18 shows ejection fraction of 55 to 60%. No cor pulmonale. No further lasix needed. She has been on Unasyn since March 15. And vancomycin since March 16. This has been for UTI and skin infection. But this would have most likely covered her for any type of pneumonia as well. Plan Continue nebulizers, Robitussin, supportive care. Check chest x-ray to make sure no new pneumonia Caregiver is okay with taking her home if she needs to go home on oxygen. (2) Influenza A Conclusion/Plan: Plan: Droplet isolation Tamiflu dose adjusted as per renal function She received an initial 5 days, and because of her severe illness, another 5 days was added. March 18 was her 10th day and final dose. (3) UTI When previous hospitalist was in the room examining the patient's sacrum 03/15, she was being raised in a Peggy lift above her bed and she was noted to be passing urine which was white. A urinalysis was obtained after a Weber was placed (to allow perineal healing, see #4). The UA showed many bacteria, positive nitrites and 03/16 preliminary culture is growing E coli. Sensitivity today with resistance to cipro and levaguin but responds to Unasyn. No ESBL Plan: She was started on Vanco and Unasyn 03/15, as empiric coverage for a bacterial UTI (and sacral decubitus , see #4). So far she has not been spiking a fever, as such no blood cultures have been done.Today is day #5 of antibiotics. E. coli sensitive to Unasyn, ampicillin, Ancef, cefepime. Oral antibiotics would cover her would be Bactrim and Macrobid. I need to be able to cover the UTI as well as the organisms in her sacrum. The MRSA needs vancomycin, and the E. coli, Enterococcus show resistance to Cipro, tetracycline. At this time the ampicillin in the Unasyn covers this. I would like to de-escalate but I do not think I can. I will aim for 7 days of antibiotic therapy. (4) Sacral decubitus ulcer, Stage III (L89.153) The patient presented on admission with a sacral pressure wound. And we obtained instructions from [facility] about what they were doing at home. We continued that. On March 15, the wound looked worse and was larger, multiple areas of skin breakdown that was now felt to be a stage III. White jenaro l count continues to rise with this in spite of appropriate antibiotic therapy and daily wound care. Wound culture came back growing MRSA, Enterococcus and E. coli. The wound clinic nurse saw the patient on March 17 and I wrote orders for her instructions. I had general surgery see her March 18 and general surgery would like her to get Dakin's solution, reevaluate after 2 days, and see if she needs to go to the OR for debridement. The current surgeon on-call will be gone after today. The new surgeon tomorrow will be updated. If she does not need surgical debridement, she would be able to go home with [facility] wound care orders by March 21. (5) Bed bound Conclusion/Plan: As per Hx obtained after admission. Her caregiver lives with her for the past 4- 5 years, and the caregiver stays in this hospital room with her here. The caregiver has been caught attaching the pt to the Peggy lift herself. Was told not to do that. (6) Weakness Conclusion/Plan: We learned from her caregiver at her bedside, that she is usually bedbound and that a lift is used to put her in a recliner chair. She no longer walks or stands or pivots. The caregiver at bedside was not happy with how our staff was using the lift for her Plan: We ordered OOB to chair via lift at least daily and prn for more OOB to chair, when we thought she had atelectasis causing the rales. No OT or PT planned (7) Pressure ulcers Conclusion/Plan: RN has documented these in photos and those were reviewed by hospitalist at admission. At the time of admission, she had a large Stage 1 Sacral decubitus ulcer and small Stage 1 R LL pressure ulcer butt sawyer-lateral lower calf, almost at ankle We learned from a FAX, how [facility] agency was doing dressing changes. Those orders were continued here, new orders were written March 17 from compressor operator. General surgery has not changed those orders. Plan: Turning and repositioning and then OOB, to get pressure off the area of buttocks Surgery consult for advice. (8) DM2 (diabetes mellitus, type 2) Conclusion/Plan: Stable A1c at 6.7 Glucose yesterday was 124, 149, 171, 199 Glucose today is 155 and 151 Plan: She is on a diabetic diet, and hypoglycemia protocol, fingerstick checks and SS coverage. No changes. Qualifiers: Diabetes mellitus [facility] insulin use: without truck terminal manager use Diabetes mellitus complication status: without complication Qualified Code(s): E11.9 - Type 2 diabetes mellitus without complications (9) HTN (hypertension) Conclusion/Plan: Stable on Atenolol and was on Lasix. Norvasc added. Her first dose was at 2 in the afternoon March 18. March 19 , 1 AM blood pressure was 143/53. This morning she is 162/58. Plan: If SBP > 160 mm of hg may consider Hydralazine NO changes for today and I will give norvasc time to get loaded. (10) Elevated troponin Conclusion/Plan: Ekg was abnormal but there had been no concern for active ischemia with flat troponins
--- NOTE | 2022-03-19 11:35 | XRAY Report ---
PROCEDURE: Chest 1 View X-Ray INDICATIONS: rising wbc w cough, influenza a TECHNIQUE: One view of the chest was acquired. COMPARISON: 03/13/2022 FINDINGS: Surgical changes and devices: None. Lungs and pleura: Lung volumes are considerably lower compared to prior. There is a right lung base opacity and probable left base retrocardiac opacity. The central bronchovascular structures are crowd ed, probably due to low lung volumes. Mediastinum: Cardiomediastinal contour is stable. Bones and chest wall: No suspicious bony lesions. Overlying soft tissues appear unremarkable. IMPRESSION: 1. Decrease in lung volumes and development of bibasilar opacities, right greater than left which may be atelectasis or pneumonia. Reviewed by: Frances Smyth MD on 03/19/2022 11:34 AM PST Approved by: Frances Smyth MD on 03/19/2022 11:34 AM PST Station ID: [id number]
--- NOTE | 2022-03-19 14:43 | XRAY Report ---
PROCEDURE: Abdomen 1 View X-Ray INDICATIONS: no BM for 10 days TECHNIQUE: One view of the abdomen acquired. COMPARISON: None FINDINGS: Surgical changes and devices: Bilateral hip arthroplasty. Bowel: Bowel gas pattern is not obstructive. Mild scattered stool. Soft tissues: No suspicious abdominal calcifications. Visualized solid organ contours appear normal in size. Bones: No suspicious bony lesions. IMPRESSION: Mild stool without structure. Reviewed by: Yoana Nicolas MD on 03/19/2022 2:42 PM PST Approved by: Yoana Nicolas MD on 03/19/2022 2:42 PM PST Station ID: [id number]
[2022-03-19] MEDS: LACTULOSE 10 GM /15 ML UDC PO SCH (14:52)
[2022-03-19] MEDS: HYDROcod/ACETAM 5/325 MG TABLET PO PRN (14:52)
[2022-03-19] MEDS: VANCOMYCIN INJ 1 GM, VANCOMYCIN INJ 500 MG in SODIUM CHLORIDE 0.9% 500 ML IV SCH (17:08)
[2022-03-20 05:25] LABS: BASOPHILS # (AUTO) 0.1 10^3/uL (0.0-0.1); BASOPHILS % (AUTO) 0.7 %; EOSINOPHILS # (AUTO) 0.2 10^3/uL (0.0-0.7); EOSINOPHILS % (AUTO) 1.8 %; HCT - HEMATOCRIT 36.1 % (37.0-47.0); HGB - HEMOGLOBIN 10.8 g/dL (12.0-16.0); LYMPHOCYTES # (AUTO) 2.5 10^3/uL (1.5-3.5); LYMPHOCYTES % (AUTO) 18.4 %; MEAN CORPUSCULAR HEMOGLOBIN 26.5 pg (27.0-31.0); MEAN CORPUSCULAR HGB CONC 29.9 g/dL (32.0-36.0); MEAN CORPUSCULAR VOLUME 88.5 fL (81.0-99.0); MEAN PLATELET VOLUME 10.6 fL (7.9-10.8); MONOCYTES # (AUTO) 1.2 10^3/uL (0.0-1.0); MONOCYTES % (AUTO) 8.9 %; NEUTROPHILS # (AUTO) 9.3 10^3/uL (1.5-6.6); NEUTROPHILS % (AUTO) 69.2 %; PLT - PLATELET COUNT 404 10^3/uL (130-450); RED BLOOD COUNT 4.08 10^6/uL (4.20-5.40); RED CELL DISTRIBUTION WIDTH 13.9 % (12.0-15.0); WHITE BLOOD COUNT 13.4 x10^3/uL (4.8-10.8)
[2022-03-20 05:32] LABS: CALCIUM 8.7 mg/dL (8.5-10.3); CREATININE 1.3 mg/dL (0.4-1.0); POTASSIUM 3.6 mmol/L (3.5-5.0)
[2022-03-20] MEDS: AMPICILLIN/SULBACTAM 1.5 GM in SODIUM CHLORIDE 0.9% MINIBAG 100 ML IV SCH ×3 (05:34→17:44)
--- NOTE | 2022-03-20 07:57 | PROVIDER PROGRESS NOTE ---
Subjective - Prog Note Date Prog Note Date: 03/20/22 Prog Note Time: 07:56 - Subjective Subjective: no changes for her. no fevers, no new events. Really refusing to eat. Refusing to work with physical therapy. Refusing to take meds to the nurse at times. She did have a bowel movement with the lactulose we gave her last night. Between yesterday and today, she is more lethargic. Really is refusing to open her eyes for anybody and lays at about 30 to 40 degrees, on her back, mouth open. Very weak cough, not able to bring up anything. I did a chest x-ray yesterday and it shows progression of bibasilar opacities. I gave her lactulose for constipation. She had not had a bowel movement for 10 days. She had excellent results with that. A KUB showed mild amount of stool burden with no obstruction. Current Medications - Current Medications Current Medications: Active Medications Acetaminophen (Acetaminophen 500 Mg Tablet) 500 mg PO DAILY [facility] Last Admin: 03/19/22 11:35 Dose: 500 mg Acetaminophen (Acetaminophen 325 Mg Tablet) 650 mg PO Q4HR PRN PRN Reason: Pain 1 to 4, or Fever Last Admin: 03/14/22 16:06 Dose: 650 mg Hydrocodone Bitart/Acetaminophen (Hydrocod/Acetam 5/325 Mg Tablet) 1 tab PO Q6HR PRN PRN Reason: Pain 5 to 7 Last Admin: 03/19/22 14:52 Dose: 1 tab Albuterol/Ipratropium (Ipratropium/Albuterol 3 Ml Neb) 3 ml INH Q4HR PRN PRN Reason: Wheezing Last Admin: 03/17/22 20:45 Dose: 3 ml Amitriptyline HCl (Amitriptyline 10 Mg Tablet) 5 mg PO QPM PRN PRN Reason: Insomnia Amlodipine Besylate (Amlodipine 5 Mg Tablet) 5 mg PO DAILY [facility] Last Admin: 03/19/22 11:35 Dose: 5 mg Atenolol (Atenolol 25 Mg Tablet) 25 mg PO DAILY [facility] Last Admin: 03/19/22 11:35 Dose: 25 mg Benzonatate (Benzonatate 100 Mg Capsule) 100 mg PO TID [facility] Last Admin: 03/19/22 18:59 Dose: 100 mg Cholecalciferol (Cholecalciferol 25 Mcg Tablet) 50 mcg PO DAILY [facility] Last Admin: 03/19/22 11:35 Dose: 50 mcg Docusate Sodium (Docusate Sodium 250 Mg Capsule) 250 - 500 mg PO DAILY [facility] Last Admin: 03/18/22 21:41 Dose: 500 mg Guaifenesin (Guaifenesin 600 Mg Tablet) 600 mg PO BID [facility] Last Admin: 03/19/22 18:59 Dose: 600 mg Vancomycin HCl 1 gm/Vancomycin HCl 500 mg/ Sodium Chloride 500 mls @ 250 mls/hr IV Q24H [facility] Last Infusion: 03/19/22 18:56 Dose: Infused Ampicillin Sodium/Sulbactam (Sodium 1.5 gm/ Sodium Chloride) 100 mls @ 200 mls/hr IV Q6H [facility] Last Infusion: 03/20/22 06:14 Dose: Infused Ibuprofen (Ibuprofen 400 Mg Tablet) 400 mg PO Q4HR PRN PRN Reason: Pain 1 to 4 Last Admin: 03/17/22 20:19 Dose: 400 mg Insulin Human Lispro (Insulin Lispro 300 Unit/3 Ml Pen) 1 - 9 unit SUBQ 0800,1200,1700,2100 [facility]; Protocol Last Admin: 03/19/22 21:28 Dose: 1 unit Lactulose (Lactulose 10 Gm /15 Ml Udc) 10 gm PO DAILY [facility] Last Admin: 03/19/22 14:52 Dose: 10 gm Loratadine (Loratadine 10 Mg Tablet) 10 mg PO DAILY PRN PRN Reason: ALLERGIES Last Admin: 03/19/22 09:06 Dose: 10 mg Mineral Oil (Min Oil/Dimethicon/Coconut Oil 92 Gm Tube) 1 applic TOP PRN PRN PRN Reason: Skin Care Last Admin: 03/18/22 01:15 Dose: 1 applic Multi-Ingredient Ointment (Zinc Oxide 20% Oint 30 Gm Tube) 1 applic TOP PRN PRN PRN Reason: Skin Care Last Admin: 03/13/22 13:51 Dose: 1 applic Multivitamins/Minerals (Multivitamin W/Minerals Tablet) 1 tab PO DAILYWM [facility] Last Admin: 03/19/22 11:35 Dose: 1 tab Nystatin (Nystatin Powder 15 Gm) 1 applic TOP BID [facility] Last Admin: 03/19/22 18:21 Dose: 1 applic Ondansetron HCl (Ondansetron 4 Mg/2 Ml Vial) 4 mg IVP Q6HR PRN PRN Reason: Nausea / Vomiting Oxycodone HCl (Oxycodone 5 Mg Tablet) 10 mg PO Q6HR PRN PRN Reason: PAIN >8 Polyethylene Glycol (Polyethylene Glycol 3350 17 Gm Packet) 17 gm PO DAILY [facility] Last Admin: 03/19/22 09:03 Dose: 17 gm Prochlorperazine Edisylate (Prochlorperazine 10 Mg/2 Ml Vial) 10 mg IVP Q6HR PRN PRN Reason: Nausea / Vomiting Saccharomyces Boulardii (Saccharomyces Boulardii 250 Mg Capsule) 250 mg PO BIDWM [facility] Last Admin: 03/19/22 17:08 Dose: 250 mg Senna (Senna 8.6 Mg Tablet) 8.6 - 17.2 mg PO DAILY [facility] Last Admin: 03/19/22 09:06 Dose: 8.6 mg Sodium Chloride (Sodium Chloride Flush 0.9% 10 Ml Syringe) 10 ml IVP PRN PRN PRN Reason: NEEDED PER PROVIDER ORDERS Last Admin: 03/16/22 20:00 Dose: 10 ml Sodium Chloride (Sodium Chloride Flush 0.9% 10 Ml Syringe) 10 ml IVP 0100,0900,1700 [facility] Last Admin: 03/19/22 23:48 Dose: 10 ml Acetaminophen 500 mg PO PRN PRN 02/13/16 Amitriptyline HCl 5 mg PO QPM PRN 02/13/16 atenoloL [Atenolol] 25 mg PO DAILY 02/13/16 metFORMIN [Glucophage] 1,000 mg PO BIDWM 04/21/17 Objective - Vital Signs/Intake & Output Reviewed Vital Signs: Yes Vital Signs: Vital Signs x48h Temp Pulse Resp BP Pulse Ox O2 Flow Rate 03/20/22 07:47 37.0 C 73 20 171/68 H 93 2 03/20/22 07:43 2 Intake & Output: Intake & Output 03/17/22 03/18/22 03/19/22 03/20/22 23:59 23:59 23:59 23:59 Intake Total 2390 1140 1220 200 Output Total 1400 1875 1675 500 Balance 990 -735 -455 -300 - Objective General Appearance: positive: No acute distress, Lethargic (Mouth open bharti thing, response to my voice and answers yes no, and will answer questions appropriately. Appears surprised when I tell that she just not doing well and she has to be able to cough, sit up), Other (Frail elderly female) Eyes Bilateral: positive: PERRL, EOMI ENT: positive: Dry mucous membranes Neck: positive: No JVD Respiratory: positive: No respiratory distress, Rhonchi (An occasional congested cough that clears quickly. There is no respiratory distress with this), Other (Slow, shallow respiration. Just appears exhausted with a very weak cough and unable to bring up phlegm). negative: Wheezes, Rales Cardiovascular: positive: Regular rate & rhythm Abdomen: positive: Non-tender, No organomegaly, Nml bowel sounds. negative: Guarding, Rebound Skin: positive: Warm, Dry, Other (Sacral decub and right lower extremity lateral calf) Extremities: positive: Pedal edema Neurologic/Psychiatric: positive: CN's nml (2-12), Disoriented to time. negative: Motor nml (Unclear why her lower extremities are so weak. Other than just prolonged bedrest or sitting that is resulted in inability to stand. But she can move her legs and flex and extend her feet.) - Lab Results Fish Bones: 03/20/22 05:00 03/20/22 05:00 Other Labs: Lab Results x24hrs 03/20/22 03/20/22 Range/Units 05:00 05:00 WBC 13.4 H (4.8-10.8) x10^3/uL RBC 4.08 L (4.20-5.40) 10^6/uL Hgb 10.8 L (12.0-16.0) g/dL Hct 36.1 L (37.0-47.0) % MCV 88.5 (81.0-99.0) fL MCH 26.5 L (27.0-31.0) pg MCHC 29.9 L (32.0-36.0) g/dL RDW 13.9 (12.0-15.0) % Plt Count 404 (130-450) 10^3/uL MPV 10.6 (7.9-10.8) fL Neut # (Auto) 9.3 H (1.5-6.6) 10^3/uL Lymph # (Auto) 2.5 (1.5-3.5) 10^3/uL Millard # (Auto) 1.2 H (0.0-1.0) 10^3/uL Eos # (Auto) 0.2 (0.0-0.7) 10^3/uL Baso # (Auto) 0.1 (0.0-0.1) 10^3/uL Absolute Nucleated RBC 0.00 x10^3/uL Nucleated RBC % 0.0 /100WBC Sodium 145 (135-145) mmol/L Potassium 3.6 (3.5-5.0) mmol/L Chloride 109 (101-111) mmol/L Carbon Dioxide 23 (21-32) mmol/L Anion Gap 13.0 (6-13) BUN 46 H (6-20) mg/dL Creatinine 1.3 H (0.4-1.0) mg/dL Estimated GFR (MDRD) 39 L (>89) Glucose 152 H (70-100) mg/dL Calcium 8.7 (8.5-10.3) mg/dL ABX Reporting Has patient been on IV antibiotics over the past 48 hours?: Yes Sepsis Event Note (H) - Evaluation Current Stage of Sepsis: Ruled out Assessment/Plan - Problem List (1) Acute respiratory failure with hypoxia Impression: Our initial thought process was that influenza was giving her hypoxia from viral pneumonia. But lung exam was concerning for possible congestive heart failure. Several chest x-rays if showed improvement but the patient continues to have hypoxia, rising white cell count. We did do an echocardiogram to make sure that she was not in congestive heart failure. An echo in 2017 had ejection fraction of 50%. A limited echocardiogram done March 18 shows ejection fraction of 55 to 60%. No cor pulmonale. No further lasix needed. She has been on Unasyn since March 15. And vancomycin . This has been for UTI and skin infection. But this would have most likely covered her for any type of pneumonia as well. I repeated a chest x-ray and trying to figure out why she continues to be hypoxic. March 19 chest x-ray shows decreased lung volumes and development of bibasilar opacities, right greater than left which may represent atelectasis or pneumonia. Plan Continue nebulizers, Robitussin, supportive care. I explained to her that this is an ominous sign. Her pneumonia is getting worse not better. I have added Acapella. She already has an incentive spirometer at the bedside. I have strongly encouraged her and her care provider to use these to bring up phlegm. No change in antibiotics. Caregiver is okay with taking her home if she needs to go home on oxygen.But she is not ready to go home yet with a worsening respiratory status. I have asked the caregiver to encourage Ms. Caruso to do the incentive spirometry and the Acapella valve. I have also updated Ms. Caruso brother, Mr. Song. Her caregiver says that she is power of state's attorney. And I said that is wonderful that there is identified power of state's attorney. If she could please bring in the paperwork so that we can put that in the chart. (2) Influenza A Conclusion/Plan: Plan: Droplet isolation Tamiflu dose adjusted as per renal function She received an initial 5 days, and because of her severe illness, another 5 days was added. March 18 was her 10th day and final dose. (3) UTI When previous hospitalist was in the room examining the patient's sacrum 03/15, she was being raised in a Peggy lift above her bed and she was noted to be passing urine which was white. A urinalysis was obtained after a Weber was placed (to allow perineal healing, see #4). The UA showed many bacteria, positive nitrites and 03/16 preliminary culture is growing E coli. Sensitivity today with resistance to cipro and levaguin but responds to Unasyn. No ESBL Plan: She was started on Vanco and Unasyn 03/15, as empiric coverage for a bacterial UTI (and sacral decubitus , see #4). So far she has not been spiking a fever, as such no blood cultures have been done.Today is day #6 of antibiotics. E. coli sensitive to Unasyn, ampicillin, Ancef, cefepime. Oral antibiotics would cover her would be Bactrim and Macrobid. I need to be able to cover the UTI as well as the organisms in her sacrum. The MRSA needs vancomycin, and the E. coli, Enterococcus show resistance to Cipro, tetracycline. At this time the ampicillin in the Unasyn covers this. I would like to de-escalate but I do not think I can. I will aim for 7 days of antibiotic therapy. (4) Sacral decubitus ulcer, Stage III (L89.153) The patient presented on admission with a sacral pressure wound. And we obtained instructions from [facility] about what they were doing at home. We continued that. On March 15, the wound looked worse and was larger, multiple areas of skin breakdown that was now felt to be a stage III. White cell count continues to rise with this in spite of appropriate antibiotic therapy and daily wound care. Wound culture came back growing MRSA, Enterococ cus and E. coli. The wound clinic nurse saw the patient on March 17 and I wrote orders for her instructions. I had general surgery see her March 18 and general surgery would like her to get Dakin's solution, reevaluate after 2 days, and see if she needs to go to the OR for debridement. The previous surgeon that was on-call is not with this as of today. We have a new surgeon today. He was updated on her case and has seen her. I appreciate his note I thought she would be able to go home by March 21 on the basis of how her wound looked, but with today's worsening chest x-ray, weak cough, discharge will be delayed. (5) Bed bound Conclusion/Plan: As per Hx obtained after admission. Her caregiver lives with her for the past 4- 5 years, and the caregiver stays in this hospital room with her here. The caregiver has been caught attaching the pt to the Peggy lift herself. Was told not to do that. (6) Weakness Conclusion/Plan: We learned from her caregiver at her bedside, that she is usually bedbound and that a lift is used to put her in a recliner chair. She no longer walks or stands or pivots. The caregiver at bedside was not happy with how our staff was using the lift for her Plan: We ordered OOB to chair via lift at least daily and prn for more OOB to chair, when we thought she had atelectasis causing the rales. No OT or PT planned (7) Pressure ulcers Conclusion/Plan: RN has documented these in photos and those were reviewed by hospitalist at admission. At the time of admission, she had a large Stage 1 Sacral decubitus ulcer and small Stage 1 R LL pressure ulcer recycling assistant-lateral lower calf, almost at ankle We learned from a FAX, how [facility] was doing dressing changes. Those orders were continued here, new orders were written March 17 from cad specialist. General surgery has not changed those orders. Plan: Turning and repositioning and then OOB, to get pressure off the area of buttocks Surgery consult for advice. (8) DM2 (diabetes mellitus, type 2) Conclusion/Plan: Stable A1c at 6.7 Glucose March 19: 155, 175, 177 Today glucose 151, 184 Plan: She is on a diabetic diet, and hypoglycemia protocol, fingerstick checks and SS coverage. No changes. 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 Norvasc added. Her first dose was at 2 in the afternoon March 18. Systolic 171 and 146 today. Plan: NO changes for today and I will give norvasc time to get loaded. (10) Elevated troponin Conclusion/Plan: Ekg was abnormal but there had been no concern for active ischemia with flat troponins
[2022-03-20] MEDS: BENZONATATE 100 MG CAPSULE PO SCH ×4 (08:19→21:32)
[2022-03-20] MEDS: SACCHAROMYCES BOULARDII 250 MG CAPSULE PO SCH ×2 (08:49→18:20)
[2022-03-20] MEDS: INSULIN LISPRO 300 UNIT/3 ML PEN SUBQ SCH ×4 (08:49→21:30)
[2022-03-20] MEDS: guaiFENesin 600 MG TABLET PO SCH ×2 (08:49→21:30)
[2022-03-20] MEDS: MULTIVITAMIN W/MINERALS TABLET PO SCH (08:49)
[2022-03-20] MEDS: atenoloL 25 MG TABLET PO SCH (08:50)
[2022-03-20] MEDS: SENNA 8.6 MG TABLET PO SCH (08:50)
[2022-03-20] MEDS: CHOLECALCIFEROL 25 MCG TABLET PO SCH (08:50)
[2022-03-20] MEDS: amLODIPine 5 MG TABLET PO SCH (08:50)
[2022-03-20] MEDS: DOCUSATE SODIUM 250 MG CAPSULE PO SCH (08:50)
[2022-03-20] MEDS: ACETAMINOPHEN 500 MG TABLET PO SCH (08:50)
[2022-03-20] MEDS: SODIUM CHLORIDE FLUSH 0.9% 10 ML SYRINGE IVP SCH ×2 (08:51→17:45)
[2022-03-20] MEDS: polyethylene glycoL 3350 17 GM PACKET PO SCH (08:51)
[2022-03-20] MEDS: NYSTATIN POWDER 15 GM TOP SCH ×2 (08:51→21:31)
--- NOTE | 2022-03-20 09:22 | PROVIDER PROGRESS NOTE ---
Progress Note Sacral decubitus ulcer wound care S: No complaints of pain in the gluteal region O: The sacral ulcer is superficial (partial skin loss) except for an irregular eschar 2 cm x 3 cm in size on the right buttocks adjacent to the gluteal cleft. The surrounding epidermis appears healthy (no cellulitis) and there is no purulence from the any of the open wounds. A: Sacral decubitus ulcer Stage 2, possibly 3. Treatment with BID antisept/ga uze started yesterday. Several days of this may loosen the eschar. If not, surgical debridement will be considered. Once the eschar has , Medihoney (hydrocolloid) can be applied. An air cushion mattress would be helpful not only as an inpatient but for radiation protection engineer care as an out-patient. I met her home caregiver and she seems quite capable in managing the sacral ulceration. Recommendation: Continue BID local wound care. Avoid direct pressure to the wound (move from side to side). Provide nutritional support (Nutritional consult ordered today.) Consider air cushion bed (Discussed with Dr. Meyers.) Will consider the use of surgical debridement and then the use of Medihoney dressings if the current therapy is not effective
[2022-03-20] MEDS: LACTULOSE 10 GM /15 ML UDC PO SCH (11:00)
[2022-03-21] MEDS: AMPICILLIN/SULBACTAM 1.5 GM in SODIUM CHLORIDE 0.9% MINIBAG 100 ML IV SCH ×2 (00:03→06:26)
[2022-03-21] MEDS: SODIUM CHLORIDE FLUSH 0.9% 10 ML SYRINGE IVP SCH ×3 (00:42→17:21)
[2022-03-21 08:05] VITALS: BP 179/68
[2022-03-21 08:16] LABS: BASOPHILS % (AUTO) 0.5 %; EOSINOPHILS % (AUTO) 0.4 %; HCT - HEMATOCRIT 38.8 % (37.0-47.0); HGB - HEMOGLOBIN 11.7 g/dL (12.0-16.0); LYMPHOCYTES % (AUTO) 11.5 %; MEAN CORPUSCULAR HEMOGLOBIN 26.8 pg (27.0-31.0); MEAN CORPUSCULAR HGB CONC 30.2 g/dL (32.0-36.0); MEAN PLATELET VOLUME 10.6 fL (7.9-10.8); MONOCYTES % (AUTO) 5.7 %; NEUTROPHILS % (AUTO) 81.2 %; PLT - PLATELET COUNT 404 10^3/uL (130-450); RED BLOOD COUNT 4.36 10^6/uL (4.20-5.40); RED CELL DISTRIBUTION WIDTH 14.2 % (12.0-15.0); WHITE BLOOD COUNT 21.5 x10^3/uL (4.8-10.8)
[2022-03-21 08:27] LABS: CALCIUM 8.9 mg/dL (8.5-10.3); CREATININE 1.4 mg/dL (0.4-1.0); POTASSIUM 3.9 mmol/L (3.5-5.0)
[2022-03-21 08:34] LABS: SLIDE REVIEW? Indicated
[2022-03-21 08:35] LABS: ABNORMAL LYMPHS % (MANUAL) 0 %
[2022-03-21 08:37] LABS: BAND NEUTROPHILS % (MANUAL) 1 %; LYMPHOCYTES # (MANUAL) 3.7 10^3/uL (1.5-3.5); LYMPHOCYTES % (MANUAL) 17 %; MONOCYTES # (MANUAL) 1.7 10^3/uL (0.0-1.0); NEUTROPHILS # (MANUAL) 16.1 10^3/uL (1.5-6.6)
[2022-03-21 08:38] LABS: PLATELET ESTIMATE, MANUAL NORMAL (130-450,000) (NORMAL); PLATELET MORPHOLOGY NORMAL APPEARANCE (NORMAL); RBC MORPHOLOGY (MULTIPLE) NORMAL APPEARANCE (NORMAL)
[2022-03-21 08:39] LABS: WBC MORPHOLOGY (MULTIPLE) NORMAL APPEARANCE (NORMAL)
[2022-03-21 08:40] LABS: DIFFERENTIAL COMMENT MANUAL DIFFERENTIAL
[2022-03-21] MEDS: NYSTATIN POWDER 15 GM TOP SCH ×2 (09:00→20:56)
--- NOTE | 2022-03-21 09:14 | PROVIDER PROGRESS NOTE ---
Progress Note Sacral decubitus ulcer wound care S: No complaints related to sacral ulcer O: The sacral ulcer eschar seems softer than yesterday. There is no surrounding cellulitis. The area is not tender to palpation The surrounding epidermis appears healthy. Dakin's was sprayed onto the eschar and a fresh dressing placed. A: Sacral decubitus ulcer Stage 2, possibly 3. LWC seems to be effective in loosening the eschar. Recommendation: Continue BID local wound care. Avoid direct pressure to the wound (move from side to side). Provide nutritional support. Will consider the use of surgical debridement and then the use of Medihoney dressings if the current therapy is not effective. The debridement can be performed at the bedside with local anesthesia. Sulaiman Kerr MD General Surgery Service
[2022-03-21] MEDS: guaiFENesin 600 MG TABLET PO SCH ×2 (10:15→20:56)
[2022-03-21] MEDS: SACCHAROMYCES BOULARDII 250 MG CAPSULE PO SCH (10:15)
[2022-03-21] MEDS: atenoloL 25 MG TABLET PO SCH (10:15)
[2022-03-21] MEDS: amLODIPine 5 MG TABLET PO SCH (10:15)
[2022-03-21] MEDS: ACETAMINOPHEN 500 MG TABLET PO SCH (10:15)
[2022-03-21] MEDS: INSULIN LISPRO 300 UNIT/3 ML PEN SUBQ SCH (10:15)
[2022-03-21] MEDS: MULTIVITAMIN W/MINERALS TABLET PO SCH (11:02)
[2022-03-21] MEDS: polyethylene glycoL 3350 17 GM PACKET PO SCH (11:03)
[2022-03-21] MEDS: SENNA 8.6 MG TABLET PO SCH (11:03)
[2022-03-21] MEDS: CHOLECALCIFEROL 25 MCG TABLET PO SCH (11:03)
[2022-03-21] MEDS: LACTULOSE 10 GM /15 ML UDC PO SCH (11:03)
[2022-03-21] MEDS: DOCUSATE SODIUM 250 MG CAPSULE PO SCH (11:03)
[2022-03-21] MEDS: LORATADINE 10 MG TABLET PO PRN (12:03)
[2022-03-21] MEDS ORDERED: HALOPERIDOL 5 MG/ML VIAL IVP PRN ×2 (12:21)
[2022-03-21] MEDS ORDERED: GLYCOPYRROLATE 1 MG/5 ML VIAL SUBQ PRN (12:21)
[2022-03-21] MEDS ORDERED: MORPHINE 2 MG/ML CARPUJECT IVP PRN (12:21)
--- NOTE | 2022-03-21 12:29 | ADVANCE CARE PLANNING NOTE ---
Advance Care Planning - Planning Encounter Date: 03/21/22 Time: 12:27 Purpose: Establish care goals and CODE STATUS in the face of a worsening pneumonia Parties in Attendance: Caregiver Zuleyma, brother Mr. Song on the phone, hospitalist, patient is unconscious Decisional Capacity of the Patient: Unable to participate. Baseline dementia now worsened by hypoxia, fatigue, and metabolic encephalopathy - Diagnosis for Encounter (1) Acute respiratory failure with hypoxia Summary: She was admitted with acute respiratory failure with hypoxia, elevated troponin, and had influenza. And spite of influenza treatment, empiric antibiotic therapy that continues, treatment for a UTI, and sacral decubitus, she is not improving. She she is requiring increasing oxygen - Encounter Subjective/Patient's Story: She is described by her brother is a very feisty and independent lady. a few years ago and she has been missing him terribly since. He sometimes wonders if some of her lack of motivation to follow through with medical care is that she misses them so much that she sometimes wants to join them. She lives alone. Has had a caregiver for 2 years. Family describes his caregiver is very devoted in a very good caregiver to their sister. She initially wanted to be full CODE STATUS when she was admitted to the hospital. We finally identified that the caregiver is power of sports attorney, and brother is also second power of sports attorney. The caregiver has brought in the documentation. Objective/Medical Story: Over the last 2 days she has taken a turn for the worse. Flat out refusal of eating anything, taking her meds, working with physical therapy, working with respiratory therapy. Her caregiver, who stays in the room with her most times, is trying to control her into doing things as well but she really well. General surgery has been able to rotate her and take care of her sacrum. Since March 19 has become more more lethargic with all of this. She was speaking to me yesterday with eyes closed. She knew she was in the hospital. I warned her that she was taking a turn for the worse and asked her to please, please try and make an effort and cooperate with respiratory therapy specifically. I feared that she was needing more oxygen, her chest x-ray was worsening. Between yesterday and today she is continue to worsen. She is now 87% on 2 L. Whereas she used to be 93 or 94% on 2 L. She is less responsive. Today she is laying at about 30 degrees, head tilted back, mouth open, and not speaking to me at all. She is not really responding to her caregiver either. I had a caregiver bring in the power of sports attorney. I really wanted to make sure I knew who I was speaking to. Apparently her caregiver is DURABLE POWER OF DIRECTOR AUTO #1, and her brother Mr. Song is DURABLE POWER OF DIRECTOR AUTO #2. I spoke to both of these DPOA's at length. I explained that she really was not doing well. Even if she allowed me to now intubate her, suction, continue antibiotics, I did not think it would make much of a difference in the overall prognosis. I might be able to prolong her life a few days, but at the end of this she would need considerable, considerable support at home. With that in mind Mr. Song asked what would happen at the end. We discussed arrangements, etc. I talked about resuscitative status. The patient is a full code. Mr. Song said that his sister really would never want to be intubated and on a vent for any length of time. She is claustrophobic, and the anxiety of it would be horrible. He does not understand why she would want to be full code. With that in mind, as DURABLE POWER OF DIRECTOR AUTO, he asked me to make her DO NOT RESUSCITATE. I spoke about all this with her caregiver at the bedside. She is in agreement with all of this. No intubation. Transition to comfort measures. Goals of Care: At this time, as stated by family and agreed to by power of sports attorney #1, they would like to transition her to comfort measures. Plan: Stop antibiotics, labs, vitals, oxygen, and keep her comfortable with morphine, Ativan, atropine drops, Haldol as needed Code Status: Do Not Attempt Resuscitation Time spent on advance care plannin minutes
--- NOTE | 2022-03-21 12:33 | PROVIDER PROGRESS NOTE ---
Subjective - Prog Note Date Prog Note Date: 03/21/22 Prog Note Time: 12:31 - Subjective Subjective: She is not responsive to me this morning. She is only responsive when you try and roll over and she moans in pain when they do her dressing changes. Yeste rday she was at least speaking to me when her eyes were closed. She is also requiring more and more oxygen. Please see advance care planning conversation under separate dictation Current Medications - Current Medications Current Medications: Active Medications Acetaminophen (Acetaminophen 500 Mg Tablet) 500 mg PO DAILY [facility] Last Admin: 03/21/22 10:15 Dose: 500 mg Acetaminophen (Acetaminophen 325 Mg Tablet) 650 mg PO Q4HR PRN PRN Reason: Pain 1 to 4, or Fever Last Admin: 03/14/22 16:06 Dose: 650 mg Hydrocodone Bitart/Acetaminophen (Hydrocod/Acetam 5/325 Mg Tablet) 1 tab PO Q6HR PRN PRN Reason: Pain 5 to 7 Last Admin: 03/19/22 14:52 Dose: 1 tab Albuterol/Ipratropium (Ipratropium/Albuterol 3 Ml Neb) 3 ml INH Q4HR PRN PRN Reason: Wheezing Last Admin: 03/17/22 20:45 Dose: 3 ml Amlodipine Besylate (Amlodipine 5 Mg Tablet) 5 mg PO DAILY [facility] Last Admin: 03/21/22 10:15 Dose: 5 mg Atenolol (Atenolol 25 Mg Tablet) 25 mg PO DAILY [facility] Last Admin: 03/21/22 10:15 Dose: 25 mg Atropine Sulfate (Atropine 1% Ophth Drops 2 Ml) 1 - 4 drops SL Q2H PRN PRN Reason: Excessive secretions Benzonatate (Benzonatate 100 Mg Capsule) 100 mg PO TID [facility] Last Admin: 03/20/22 21:32 Dose: 100 mg Glycopyrrolate (Glycopyrrolate 1 Mg/5 Ml Vial) 0.2 mg SUBQ Q4H PRN PRN Reason: Excessive secretions Guaifenesin (Guaifenesin 600 Mg Tablet) 600 mg PO BID [facility] Last Admin: 03/21/22 10:15 Dose: 600 mg Haloperidol (Haloperidol 5 Mg/Ml Vial) 0.5 mg IVP Q6H PRN PRN Reason: Nausea / Vomiting Haloperidol (Haloperidol 5 Mg/Ml Vial) 0.5 mg IVP Q2H PRN PRN Reason: Agitation Ibuprofen (Ibuprofen 400 Mg Tablet) 400 mg PO Q4HR PRN PRN Reason: Pain 1 to 4 Last Admin: 03/17/22 20:19 Dose: 400 mg Morphine Sulfate (Morphine 2 Mg/Ml Carpuject) 2 mg IVP Q2HR PRN PRN Reason: Pain or Shortness of air Multi-Ingredient Ointment (Zinc Oxide 20% Oint 30 Gm Tube) 1 applic TOP PRN PRN PRN Reason: Skin Care Last Admin: 03/13/22 13:51 Dose: 1 applic Multivitamins/Minerals (Multivitamin W/Minerals Tablet) 1 tab PO DAILYWM [facility] Last Admin: 03/21/22 11:02 Dose: Not Given Nystatin (Nystatin Powder 15 Gm) 1 applic TOP BID [facility] Last Admin: 03/21/22 09:00 Dose: 1 applic Oxycodone HCl (Oxycodone 5 Mg Tablet) 10 mg PO Q6HR PRN PRN Reason: PAIN >8 Last Admin: 03/21/22 10:15 Dose: 10 mg Polyethylene Glycol (Polyethylene Glycol 3350 17 Gm Packet) 17 gm PO DAILY [facility] Last Admin: 03/21/22 11:03 Dose: Not Given Senna (Senna 8.6 Mg Tablet) 8.6 - 17.2 mg PO DAILY [facility] Last Admin: 03/21/22 11:03 Dose: Not Given Sodium Chloride (Sodium Chloride Flush 0.9% 10 Ml Syringe) 10 ml IVP PRN PRN PRN Reason: NEEDED PER PROVIDER ORDERS Last Admin: 03/16/22 20:00 Dose: 10 ml Sodium Chloride (Sodium Chloride Flush 0.9% 10 Ml Syringe) 10 ml IVP 0100,0900,1700 [facility] Last Admin: 03/21/22 10:15 Dose: 10 ml Acetaminophen 500 mg PO PRN PRN 02/13/16 Amitriptyline HCl 5 mg PO QPM PRN 02/13/16 atenoloL [Atenolol] 25 mg PO DAILY 02/13/16 metFORMIN [Glucophage] 1,000 mg PO BIDWM 04/21/17 Objective - Vital Signs/Intake & Output Vital Signs: Vital Signs x48h Temp Pulse Resp BP BP Pulse Ox O2 Flow Rate 03/21/22 08:04 37.4 C 85 24 179/68 H 87 L 2 03/21/22 06:00 37.0 C 92 16 185/59 H 88 L 2 Intake & Output: Intake & Output 03/18/22 03/19/22 03/20/22 03/21/22 23:59 23:59 23:59 23:59 Intake Total 1140 1220 1440 200 Output Total 1875 1675 2150 350 Balance -735 -455 -710 -150 - Objective General Appearance: positive: Lethargic (Lethargic, encephalopathic with mouth open breathing. Started yesterday much worse today), Other (Not responsive to my voice but does turn her head to the sound of her caregivers voice. Is responsive to pain and discomfort and does not want to be turned) Eyes Bilateral: positive: PERRL ENT: positive: Dry mucous membranes (From mouth open breathing.) Neck: negative: Stiff neck Respiratory: positive: Rales, Rhonchi, Other (Cough is so weak. Much weaker than yesterday. Not bringing up any phlegm) Cardiovascular: positive: Regular rate & rhythm Abdomen: positive: Nml bowel sounds. negative: Tenderness Skin: positive: Warm, Dry Extremities: positive: Pedal edema Neurologic/Psychiatric: positive: Other (Encephalopathic between yesterday and today. Minimally responsive to voice and pain.) - Lab Results Fish Bones: 03/21/22 08:06 03/21/22 08:06 Other Labs: Lab Results x24hrs 03/21/22 03/21/22 03/21/22 Range/Units 08:06 08:06 08:06 WBC 21.5 H (4.8-10.8) x10^3/uL RBC 4.36 (4.20-5.40) 10^6/uL Hgb 11.7 L (12.0-16.0) g/dL Hct 38.8 (37.0-47.0) % MCV 89.0 (81.0-99.0) fL MCH 26.8 L (27.0-31.0) pg MCHC 30.2 L (32.0-36.0) g/dL RDW 14.2 (12.0-15.0) % Plt Count 404 (130-450) 10^3/uL MPV 10.6 (7.9-10.8) fL Neut # (Auto) Not Reportable Lymph # (Auto) Not Reportable [place] # (Auto) Not Reportable Eos # (Auto) Not Reportable Baso # (Auto) Not Reportable Absolute Nucleated RBC Not Reportable Total Counted 100 Band Neuts % (Manual) 1 (0 - 10) % Abnorm Lymph % (Manual) 0 % Nucleated RBC % Not Reportable Neutrophils # (Manual) 16.1 H (1.5-6.6) 10^3/uL Lymphocytes # (Manual) 3.7 H (1.5-3.5) 10^3/uL Monocytes # (Manual) 1.7 H (0.0-1.0) 10^3/uL Eosinophils # (Manual) 0.0 (0-0.7) 10^3/uL Basophils # (Manual) 0.0 (0-0.1) 10^3/uL Differential Comment MANUAL DIFFERENTIAL Manual Slide Review Indicated WBC Morphology NORMAL APPEARANCE (NORMAL) Platelet Estimate NORMAL (130-450,000) (NORMAL) Platelet Morphology NORMAL APPEARANCE (NORMAL) RBC Morph Micro Appear NORMAL APPEARANCE (NORMAL) Sodium 149 H (135-145) mmol/L Potassium 3.9 (3.5-5.0) mmol/L Chloride 114 H (101-111) mmol/L Carbon Dioxide 25 (21-32) mmol/L Anion Gap 10.0 (6-13) BUN 41 H (6-20) mg/dL Creatinine 1.4 H (0.4-1.0) mg/dL Estimated GFR (MDRD) 36 L (>89) Glucose 197 H (70-100) mg/dL Calcium 8.9 (8.5-10.3) mg/dL Procalcitonin 0.18 (<0.5) ng/mL Vancomycin Trough (10.0-20.0) ug/mL 03/20/22 Range/Units 15:53 WBC (4.8-10.8) x10^3/uL RBC (4.20-5.40) 10^6/uL Hgb (12.0-16.0) g/dL Hct (37.0-47.0) % MCV (81.0-99.0) fL MCH (27.0-31.0) pg MCHC (32.0-36.0) g/dL RDW (12.0-15.0) % Plt Count (130-450) 10^3/uL MPV (7.9-10.8) fL Neut # (Auto) Lymph # (Auto) [place] # (Auto) Eos # (Auto) Baso # (Auto) Absolute Nucleated RBC Total Counted Band Neuts % (Manual) (0 - 10) % Abnorm Lymph % (Manual) % Nucleated RBC % Neutrophils # (Manual) (1.5-6.6) 10^3/uL Lymphocytes # (Manual) (1.5-3.5) 10^3/uL Monocytes # (Manual) (0.0-1.0) 10^3/uL Eosinophils # (Manual) (0-0.7) 10^3/uL Basophils # (Manual) (0-0.1) 10^3/uL Differential Comment Manual Slide Review WBC Morphology (NORMAL) Platelet Estimate (NORMAL) Platelet Morphology (NORMAL) RBC Morph Micro Appear (NORMAL) Sodium (135-145) mmol/L Potassium (3.5-5.0) mmol/L Chloride (101-111) mmol/L Carbon Dioxide (21-32) mmol/L Anion Gap (6-13) BUN (6-20) mg/dL Creatinine (0.4-1.0) mg/dL Estimated GFR (MDRD) (>89) Glucose (70-100) mg/dL Calcium (8.5-10.3) mg/dL Procalcitonin (<0.5) ng/mL Vancomycin Trough 33.0 H* (10.0-20.0) ug/mL ABX Reporting Has patient been on IV antibiotics over the past 48 hours?: Yes Sepsis Event Note (H) - Evaluation Current Stage of Sepsis: Ruled out Assessment/Plan - Problem List (1) Acute respiratory failure with hypoxia Impression: She was admitted with influenza A causing respiratory failure and pneumonia. A sacral decub has worsened. It was present on admission. She has not responded to therapy, and has in fact actively resisted interventions. She has stated that she did want to live and was wanting to get therapy, but she never followed through with that. In the last 2 to 3 days she is steadily worsened and is now requiring even more oxygen. She is encephalopathic with mouth open breathing. In speaking to DURABLE POWER OF ASSOCIATE LOAN OFFICER's, under separate advance care planning conversation, patient is now transition to comfort measures. I have stopped all of her medications, vital checks, labs, and a switch to comfort medicines in the form of morphine, Ativan, etc.
[2022-03-21] MEDS: MORPHINE SOL 10 MG/0.5 ML ORAL SYRINGE PO PRN ×3 (14:00→20:57)
[2022-03-21] MEDS: BENZONATATE 100 MG CAPSULE PO SCH ×2 (14:06→20:56)
[2022-03-21] MEDS ORDERED: ASCORBIC ACID 500 MG TABLET PO SCH (17:00)
[2022-03-21] MEDS ORDERED: VANCOMYCIN INJ 1 GM, VANCOMYCIN INJ 500 MG in SODIUM CHLORIDE 0.9% 500 ML IV SCH (17:00)
[2022-03-21] MEDS: ATROPINE 1% OPHTH DROPS 2 ML SL PRN (17:21)
[2022-03-21] MEDS ORDERED: ACETAMINOPHEN 1,000 MG/100 ML 1,000 MG/100 ML BAG IV PRN (18:55)
[2022-03-22] MEDS: SODIUM CHLORIDE FLUSH 0.9% 10 ML SYRINGE IVP SCH ×3 (01:20→16:35)
[2022-03-22] MEDS: BENZONATATE 100 MG CAPSULE PO SCH ×3 (04:20→22:20)
[2022-03-22] MEDS: MORPHINE SOL 10 MG/0.5 ML ORAL SYRINGE PO PRN ×5 (05:34→22:28)
--- NOTE | 2022-03-22 10:39 | PROVIDER PROGRESS NOTE ---
Progress Note Wound Care Evaluation Inspection of the sacral wound shows stability without erythema or purulence. The eschar continues to soften but I see no need to excise it at this point in time as her status has been changed to comfort/care. I recommend BID local wound care using the Dakin's spray on the eschar and then covering the area with a Gauze dressing. If her condition improves or if the eschar becomes infected, consideration will be given at that time to bedside excision. Sulaiman Kerr MD General Surgery Service
[2022-03-22] MEDS: ACETAMINOPHEN 500 MG TABLET PO SCH (12:43)
[2022-03-22] MEDS: MULTIVITAMIN W/MINERALS TABLET PO SCH (12:43)
[2022-03-22] MEDS: guaiFENesin 600 MG TABLET PO SCH ×2 (12:44→21:13)
[2022-03-22] MEDS: amLODIPine 5 MG TABLET PO SCH (12:44)
[2022-03-22] MEDS: NYSTATIN POWDER 15 GM TOP SCH ×2 (12:44→21:13)
[2022-03-22] MEDS: polyethylene glycoL 3350 17 GM PACKET PO SCH (12:44)
[2022-03-22] MEDS: atenoloL 25 MG TABLET PO SCH (12:44)
[2022-03-22] MEDS: SENNA 8.6 MG TABLET PO SCH (12:44)
--- NOTE | 2022-03-22 13:58 | PROVIDER PROGRESS NOTE ---
Subjective - Prog Note Date Prog Note Date: 03/22/22 Prog Note Time: 13:56 - Subjective Subjective: She lays on her back, mouth open breathing. For the most part she is unresponsive. But today, when speaking to her caregiver, the patient uttered a few sentences in response to the nurses question to the caregiver. There is no agonal respiration, no struggle to breathe. But the patient is not eating or drinking. Urine output is still present. General surgery saw her today and:Inspection of the sacral wound shows stability without erythema or purulence. The eschar continues to soften but I see no need to excise it at this point in time as her status has been changed to comfort/care. I recommend BID local wound care using the Dakin's spray on the eschar and then covering the area with a Gauze dressing. If her condition improves or if the eschar becomes infected, consideration will be given at that time to bedside excision. Current Medications - Current Medications Current Medications: Active Medications Acetaminophen (Acetaminophen 500 Mg Tablet) 500 mg PO DAILY [facility] Last Admin: 03/22/22 12:43 Dose: Not Given Acetaminophen (Acetaminophen 325 Mg Tablet) 650 mg PO Q4HR PRN PRN Reason: Pain 1 to 4, or Fever Last Admin: 03/14/22 16:06 Dose: 650 mg Hydrocodone Bitart/Acetaminophen (Hydrocod/Acetam 5/325 Mg Tablet) 1 tab PO Q6HR PRN PRN Reason: Pain 5 to 7 Last Admin: 03/19/22 14:52 Dose: 1 tab Albuterol/Ipratropium (Ipratropium/Albuterol 3 Ml Neb) 3 ml INH Q4HR PRN PRN Reason: Wheezing Last Admin: 03/17/22 20:45 Dose: 3 ml Amlodipine Besylate (Amlodipine 5 Mg Tablet) 5 mg PO DAILY [facility] Last Admin: 03/22/22 12:44 Dose: Not Given Atenolol (Atenolol 25 Mg Tablet) 25 mg PO DAILY [facility] Last Admin: 03/22/22 12:44 Dose: Not Given Atropine Sulfate (Atropine 1% Ophth Drops 2 Ml) 1 - 4 drops SL Q2H PRN PRN Reason: Excessive secretions Last Admin: 03/21/22 17:21 Dose: 4 drops Benzonatate (Benzonatate 100 Mg Capsule) 100 mg PO TID [facility] Last Admin: 03/22/22 04:20 Dose: Not Given Glycopyrrolate (Glycopyrrolate 1 Mg/5 Ml Vial) 0.2 mg SUBQ Q4H PRN PRN Reason: Excessive secretions Guaifenesin (Guaifenesin 600 Mg Tablet) 600 mg PO BID [facility] Last Admin: 03/22/22 12:44 Dose: Not Given Haloperidol (Haloperidol 5 Mg/Ml Vial) 0.5 mg IVP Q6H PRN PRN Reason: Nausea / Vomiting Haloperidol (Haloperidol 5 Mg/Ml Vial) 0.5 mg IVP Q2H PRN PRN Reason: Agitation Acetaminophen (Acetaminophen) 1,000 mg in 100 mls @ 400 mls/hr IV Q6HR PRN PRN Reason: PAIN Ibuprofen (Ibuprofen 400 Mg Tablet) 400 mg PO Q4HR PRN PRN Reason: Pain 1 to 4 Last Admin: 03/17/22 20:19 Dose: 400 mg Morphine Sulfate (Morphine Gissel 10 Mg/0.5 Ml Oral Syringe) 10 mg PO Q2HR PRN PRN Reason: PAIN Last Admin: 03/22/22 10:27 Dose: 10 mg Multi-Ingredient Ointment (Zinc Oxide 20% Oint 30 Gm Tube) 1 applic TOP PRN PRN PRN Reason: Skin Care Last Admin: 03/13/22 13:51 Dose: 1 applic Multivitamins/Minerals (Multivitamin W/Minerals Tablet) 1 tab PO DAILYWM [facility] Last Admin: 03/22/22 12:43 Dose: Not Given Nystatin (Nystatin Powder 15 Gm) 1 applic TOP BID [facility] Last Admin: 03/22/22 12:44 Dose: Not Given Oxycodone HCl (Oxycodone 5 Mg Tablet) 10 mg PO Q6HR PRN PRN Reason: PAIN >8 Last Admin: 03/21/22 10:15 Dose: 10 mg Polyethylene Glycol (Polyethylene Glycol 3350 17 Gm Packet) 17 gm PO DAILY [facility] Last Admin: 03/22/22 12:44 Dose: Not Given Senna (Senna 8.6 Mg Tablet) 8.6 - 17.2 mg PO DAILY [facility] Last Admin: 03/22/22 12:44 Dose: Not Given Sodium Chloride (Sodium Chloride Flush 0.9% 10 Ml Syringe) 10 ml IVP PRN PRN PRN Reason: NEEDED PER PROVIDER ORDERS Last Admin: 03/16/22 20:00 Dose: 10 ml Sodium Chloride (Sodium Chloride Flush 0.9% 10 Ml Syringe) 10 ml IVP 0100,0900,1700 [facility] Last Admin: 03/22/22 09:00 Dose: 10 ml Acetaminophen 500 mg PO PRN PRN 02/13/16 Amitriptyline HCl 5 mg PO QPM PRN 02/13/16 atenoloL [Atenolol] 25 mg PO DAILY 02/13/16 metFORMIN [Glucophage] 1,000 mg PO BIDWM 04/21/17 Objective - Vital Signs/Intake & Output Reviewed Vital Signs: Yes Intake & Output: Intake & Output 03/19/22 03/20/22 03/21/22 03/22/22 23:59 23:59 23:59 23:59 Intake Total 1220 1440 200 0 Output Total 1675 2150 600 1075 Balance -455 -710 -400 -1395 - Objective General Appearance: positive: Other (Pale, unresponsive elderly female at this time. Laying at about 30 degrees, mouth open breathing, unresponsive to my voice or to my sternal rub. This morning she did speak a few words. Mouth open breathing is resulted in dry oral mucosa.) Eyes Bilateral: positive: PERRL Neck: positive: No JVD. negative: Stiff neck Respiratory: positive: No respiratory distress, Rales, Rhonchi (Gurgling rhonchi have improved and that we have started her on atropine drops. Where she had a weak cough before she has no cough at all now.) Cardiovascular: positive: Regular rate & rhythm, Systolic murmur Abdomen: positive: No distention, Other (Hypoactive bowel sounds. Weber in place.) Skin: positive: Warm (no mottling yet. hands and feet are not cool to touch), Dry Extremities: positive: Pedal edema Neurologic/Psychiatric: positive: Other (unresponsive to voice but is in pain w moaning when you roll her over or move her) - Lab Results Fish Bones: 03/21/22 08:06 03/21/22 08:06 ABX Reporting Has patient been on IV antibiotics over the past 48 hours?: No Sepsis Event Note (H) - Evaluation Current Stage of Sepsis: Ruled out Assessment/Plan - Problem List (1) Acute respiratory failure with hypoxia Impression: She was admitted with influenza A causing respiratory failure and pneumonia. A sacral decub has worsened. It was present on admission. She has not responded to therapy, and has in fact actively resisted interventions. She has stated that she did want to live and was wanting to get therapy, but she never followed through with that. In 2 to 3 days she steadily worsened and was requiring even more oxygen by 03/20. She is encephalopathic with mouth open breathing. In speaking to DURABLE POWER OF SEARCH ENGINE OPTIMIZATION CONSULTANT's, under separate advance care planning conversation, patient is now transition to comfort measures by 03/21. I have stopped all of her medications, vital checks, labs, and a switch to comfort medicines in the form of morphine, Ativan, etc. She will continue to get wound care to make sure that doesn't worsen. Her caregiver is at the bedside.
[2022-03-23 06:09] LABS: BASOPHILS % (AUTO) 0.6 %; EOSINOPHILS % (AUTO) 0.1 %; HCT - HEMATOCRIT 42.9 % (37.0-47.0); HGB - HEMOGLOBIN 12.1 g/dL (12.0-16.0); LYMPHOCYTES % (AUTO) 8.5 %; MEAN CORPUSCULAR HEMOGLOBIN 27.1 pg (27.0-31.0); MEAN CORPUSCULAR HGB CONC 28.2 g/dL (32.0-36.0); MEAN CORPUSCULAR VOLUME 96.2 fL (81.0-99.0); MEAN PLATELET VOLUME 10.7 fL (7.9-10.8); MONOCYTES % (AUTO) 6.8 %; NEUTROPHILS % (AUTO) 83.1 %; PLT - PLATELET COUNT 393 10^3/uL (130-450); RED BLOOD COUNT 4.46 10^6/uL (4.20-5.40); RED CELL DISTRIBUTION WIDTH 14.7 % (12.0-15.0); WHITE BLOOD COUNT 28.1 x10^3/uL (4.8-10.8)
[2022-03-23 06:22] LABS: CALCIUM 8.9 mg/dL (8.5-10.3); POTASSIUM 4.8 mmol/L (3.5-5.0)
[2022-03-23 06:25] LABS: ABNORMAL LYMPHS % (MANUAL) 0 %
[2022-03-23] MEDS: SODIUM CHLORIDE FLUSH 0.9% 10 ML SYRINGE IVP SCH ×3 (06:28→16:24)
[2022-03-23] MEDS: BENZONATATE 100 MG CAPSULE PO SCH ×3 (06:28→21:52)
[2022-03-23 06:29] LABS: BAND NEUTROPHILS % (MANUAL) 1 %; LYMPHOCYTES # (MANUAL) 3.4 10^3/uL (1.5-3.5); LYMPHOCYTES % (MANUAL) 12 %; MONOCYTES # (MANUAL) 0.6 10^3/uL (0.0-1.0); NEUTROPHILS # (MANUAL) 24.2 10^3/uL (1.5-6.6)
[2022-03-23 06:30] LABS: DIFFERENTIAL COMMENT MANUAL DIFFERENTIAL; PLATELET ESTIMATE, MANUAL NORMAL (130-450,000) (NORMAL); PLATELET MORPHOLOGY NORMAL APPEARANCE (NORMAL); RBC MORPHOLOGY (MULTIPLE) NORMAL APPEARANCE (NORMAL); WBC MORPHOLOGY (MULTIPLE) NORMAL APPEARANCE (NORMAL)
[2022-03-23] MEDS: MULTIVITAMIN W/MINERALS TABLET PO SCH (10:17)
[2022-03-23] MEDS: MORPHINE SOL 10 MG/0.5 ML ORAL SYRINGE PO PRN ×4 (10:18→18:49)
[2022-03-23] MEDS: ACETAMINOPHEN 500 MG TABLET PO SCH (12:05)
[2022-03-23] MEDS: NYSTATIN POWDER 15 GM TOP SCH ×2 (12:06→21:07)
[2022-03-23] MEDS: polyethylene glycoL 3350 17 GM PACKET PO SCH (12:06)
[2022-03-23] MEDS: amLODIPine 5 MG TABLET PO SCH (12:06)
[2022-03-23] MEDS: atenoloL 25 MG TABLET PO SCH (12:06)
[2022-03-23] MEDS: guaiFENesin 600 MG TABLET PO SCH ×2 (12:06→21:08)
[2022-03-23] MEDS: SENNA 8.6 MG TABLET PO SCH (12:07)
[2022-03-23] MEDS: ATROPINE 1% OPHTH DROPS 2 ML SL PRN (15:09)
--- NOTE | 2022-03-28 13:01 | DISCHARGE SUMMARY ---
Discharge Summary Admit Date: 03/09/22 Discharge Date: 03/24/22 Discharging Provider: Dr Mei Pickens Primary Care Provider: Dr Magdi Reyes Discharge Disposition: 20 - HPI History of Present Illness: This is a 81-year-old female with past medical history of hypertension, diabetes, osteoarthritis, neuropathy who resides in at home who presented with generally not feeling well her course last 1 to 2 weeks without any specific symptoms. Patient was somewhat hypoxic on arrival 86 to 87% which quickly improved with 2 L nasal cannula. She had a cough but no other focal fi ndings on physical exam. She denied any chest pain. She had no signs of fluid excess. No other active complaints except for cough weakness and sob. The ER obtained a cardiac work-up including EKG which showed no acute ischemic, baseline ekg is abnormal, changes, troponin was mildly elevated at 23 followed by a 2-hour troponin at 28. Given the patient had no chest pain. Her remaining labs are generally stable, renal function slightly worse than baseline. She was found on viral swabs to have the flu +ve , COVID and RSV negative. Her chest x- ray was negative. We gave the patient a dose of oseltamivir and attempted to titrate her off oxygen and she did okay for a period of time saturating 90-92% on room air but subsequently dipped down to 86 to 87% therefore was not able to go home. Patient therefore should be admitted for hypoxia secondary to influenza and also mildly elevated troponin without acute chest pain or EKG changes. 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 Her Advanced Directive says she wants to be Full code but DNI and if CPR and defibrillation is unsuccessful, then DNR. - HOSPITAL COURSE Hospital Course: (1) Acute respiratory failure with hypoxia Influenza was likely giving her hypoxia from viral pneumonia. But lung exam was concerning for possible congestive heart failure. Several chest x-rays showed improvement but the patient continued to have hypoxia, and rising white cell count. Her last Echo here was in 2017, and ejection fractionwas 50%. A limited Echocardiogram done March 18, and showed an ejection fraction of 55 - 60%. No cor pulmonale. No further Lasix was ordered. She had been on Unasyn and vancomycin since March 15. This had been for UTI and skin infection. This combination would have covered her for any type of pneumonia as well. We repeated chest x-rays trying to figure out why she continued to be hypoxic. March 19 chest x-ray showed decreased lung volumes and development of bibasilar opacities, right greater than left which could represent atelectasis or pneumonia. We continued nebulizer treatments, Robitussin, supportive care. We had her on Incentive Spirometry then added Acapella and a chest PT vest. Her caregiver was okay with taking her home if she needed to go home on oxygen, but the patient continued have worsening respiratory status. We asked asked the caregiver to encourage the pt to do the incentive spirometry and the Acapella valve. We also updated the patient's brother, Mr. Song. Since about 03/19, she hasd taken a turn for the worse. Flat out refusal of eating anything, taking her meds, working with physical therapy, or working with respiratory therapy. She became more obtunded daily. On 03/21, she was only responsive to pain. On 03/22, she was made Comfort Care by her DPOA #1, her brother, and DPOA #2, the caregiver agreed. She was found without respirations at 2359 of 03/23/22 by the nurse, and was pronounce at 0000 on 03/24/22. (2) Influenza pneumonia Droplet isolation and Tamiflu were ordered, dose adjusted as per renal function. March 18 was her 10th day and final dose. (3) UTI When she was being raised above her bed, using a Peggy lift on 03/15, she was noted to be passing urine which was creamy-white. A urinalysis was obtained after a Weber was placed (to allow perineal healing, see #4). She was started on Vanco and Unasyn 03/15, as empiric coverage for a bacterial UTI (and a sacral decubitus, see #4). The UA showed many bacteria, positive nitrites and the culture grew E coli. Sensitivities showed it was resistant to cipro and levaquin but responded to Unasyn. (4) Sacral decubitus ulcer, Stage III (L89.153) The patient presented on admission with a Stage 1, sacral pressure wound. We ordered the same dressing changes as [facility] was doing at her home. On March 15, the wound looked worse and was larger, multiple areas of deeper skin breakdown were present, and the sacral wound was deemed a stage III. White cell count nayla in spite of appropriate antibiotic therapy and daily wound care. Wound culture came back growing MRSA, Enterococcus and E. coli. The [facility] nurse saw the patient on March 17 and we placed orders based on her instructions. General Surgery saw her on March 18 and Gen Surg wanted her to get Dakin's solution, reevaluate after 2 days, and see if she needs to go to the OR for debridement. On March 21, the wound had improved. (5) Bed bound As per Hx obtained after admission. Her caregiver has lived with her and for the past 4-5 years and the pt was bedbound for 5 years, we learned. (6) Weakness She has been bedbound and a lift has been used to put her in a recliner chair at her home. She was no longer walking or standing or pivoting. We ordered a lift for OOB to chair as well. (7) Pressure ulcers of multiple sites At the time of admission, she had a large Stage 1 Sacral decubitus ulcer and small Stage 1 R lower Leg pressure ulcer of the postero-lateral lower calf, almost at ankle. [facility] was doing dressing changes and we ordered the same management here. (8) DM2 (diabetes mellitus, type 2) Stable A1c at 6.7. She was on a diabetic diet, and hypoglycemia protocol, fingerstick checks and SS coverage. (9) HTN (hypertension) Stable on Atenolol and was on Lasix. Norvasc added. (10) Elevated troponin Ekg was abnormal but there had been no concern for active ischemia with flat t roponins - ALLERGIES Allergies/Adverse Reactions: Allergies Allergy/AdvReac Type Severity Reaction Status Date / Time SO Inhibitors Allergy Unknown Verified 04/21/17 15:53 cyclobenzaprine Allergy Unknown Verified 04/21/17 16:09 [From Flexeril] venom-honey bee Allergy Unknown Verified 04/21/17 15:53 - MEDICATIONS Home Medications: Ambulatory Orders Medication Instructions Recorded Confirmed Acetaminophen 500 mg PO PRN PRN 02/13/16 03/10/22 Amitriptyline HCl 5 mg PO QPM PRN 02/13/16 03/10/22 atenoloL [Atenolol] 25 mg PO DAILY 02/13/16 03/09/22 metFORMIN [Glucophage] 1,000 mg PO BIDWM 04/21/17 03/10/22 - LABS Result Diagrams: 03/23/22 05:58 03/23/22 05:58 - SEPSIS Current Stage of Sepsis: Ruled out
== END 2022-03-24 | disposition expired | DRG 189 ==
LOC: EDUNIT# → ED 17:47 → MS2 03-09 00:53 → OBSVTOIN 03-10 10:19
PROVIDERS: ADMIT Internal Medicine; ATTEND Internal Medicine
DX: J96.01 Acute respiratory failure with hypoxia (principal); J10.1 Influenza due to other identified influenza virus with other respiratory manifestations; L89.153 Pressure ulcer of sacral region, stage 3; J10.00 Influenza due to other identified influenza virus with unspecified type of pneumonia; N39.0 Urinary tract infection, site not specified; E11.9 Type 2 diabetes mellitus without complications; J98.11 Atelectasis; Z16.29 Resistance to other single specified antibiotic; B96.20 Unspecified Escherichia coli [E. coli] as the cause of diseases classified elsewhere; L89.151 Pressure ulcer of sacral region, stage 1; Z66 Do not resuscitate; Z20.822 Contact with and (suspected) exposure to COVID-19; L89.891 Pressure ulcer of other site, stage 1; I11.0 Hypertensive heart disease with heart failure; I50.9 Heart failure, unspecified; Z51.5 Encounter for palliative care; B95.62 Methicillin resistant Staphylococcus aureus infection as the cause of diseases classified elsewhere; R53.1 Weakness; R77.8 Other specified abnormalities of plasma proteins; E11.40 Type 2 diabetes mellitus with diabetic neuropathy, unspecified; M19.90 Unspecified osteoarthritis, unspecified site; N28.9 Disorder of kidney and ureter, unspecified; H91.90 Unspecified hearing loss, unspecified ear; K59.00 Constipation, unspecified; F03.90 Unspecified dementia, unspecified severity, without behavioral disturbance, psychotic disturbance, mood disturbance, and anxiety; Z74.01 Bed confinement status; Z79.84 Long term (current) use of oral hypoglycemic drugs
CPT/HCPCS: 36415; 71045; 74018; 80048; 80053; 80202; 81001; 83690; 83735; 83880; 84145; 84484; 85025; 87070; 87077; 87086; 87181; 87205; 87637; 93005; 93308; 94640; 94667; 94668; 99281; 99285; A6250; A9270; G0378; J3370